=== PATIENT | female | born 1985 | race Two or more races ===

== ENCOUNTER 2020-05-10 12:33 | Outpatient (REF) | payer OTHER, SELFPAY ==
[2020-05-10 14:42] LABS: HCG Quantitative < 2 mIU/mL
== END 2020-05-10 12:34 | disposition home or self-care (01) ==
LOC: HO.HMGCLDS 12:33
PROVIDERS: PCP Nurse Practitioner Family; Visit Provider Nurse Practitioner Family
DX: N92.6 Irregular menstruation, unspecified (principal)
CPT/HCPCS: 84702

== ENCOUNTER 2020-06-28 17:43 | Outpatient (REF) | payer OTHER, SELFPAY | END 2020-06-28 17:44 | disposition home or self-care (01) | LOC: HO.LAB 17:43 | PROVIDERS: Visit Provider Internal Medicine | DX: Z20.828 Contact with and (suspected) exposure to other viral communicable diseases (principal) | CPT/HCPCS: C9803; U0003 ==

== ENCOUNTER 2020-11-10 12:19 | Outpatient (REF) | payer OTHER, SELFPAY ==
[2020-11-11 09:09] LABS: BV Int Neg Control Negative (Negative); BV Int Pos Control Positive (Positive)
== END 2020-11-10 12:20 | disposition home or self-care (01) ==
LOC: HO.LAB 12:19
PROVIDERS: Visit Provider Nurse Practitioner Family
DX: N89.8 Other specified noninflammatory disorders of vagina (principal)
CPT/HCPCS: 87480; 87510; 87660

== ENCOUNTER 2021-02-22 11:50 | Outpatient (REF) | payer OTHER, SELFPAY | END 2021-02-22 11:51 | disposition home or self-care (01) | LOC: HO.LNP 11:50 | PROVIDERS: Visit Provider Hospitalist | DX: Z20.822 Contact with and (suspected) exposure to COVID-19 (principal) | CPT/HCPCS: U0003; U0005 ==

== ENCOUNTER 2021-03-23 11:19 | Outpatient (REF) | payer OTHER, SELFPAY ==
[2021-03-23 12:11] LABS: Influenza A PCR NEGATIVE (Negative); Influenza B PCR NEGATIVE (Negative); Resp Syncy Virus RNA Qual PCR NEGATIVE (Negative); SARS COV2 PCR INHOUSE POSITIVE (Negative)
== END 2021-03-23 11:20 | disposition home or self-care (01) ==
LOC: HO.LNP 11:19
PROVIDERS: Visit Provider Internal Medicine
DX: Z20.822 Contact with and (suspected) exposure to COVID-19 (principal); R43.9 Unspecified disturbances of smell and taste
CPT/HCPCS: 0241U

== ENCOUNTER 2021-04-01 08:43 | Outpatient (REF) | payer OTHER, SELFPAY | END 2021-04-01 08:44 | disposition home or self-care (01) | LOC: HO.HMGCLDS 08:43 | PROVIDERS: PCP Nurse Practitioner Family; Visit Provider Internal Medicine | DX: Z20.822 Contact with and (suspected) exposure to COVID-19 (principal) | CPT/HCPCS: C9803; U0003; U0005 ==

== ENCOUNTER 2021-04-06 11:24 | Outpatient (REF) | payer OTHER, SELFPAY ==
[2021-04-06 14:34] LABS: IDNOW Serial# 9DD0AD1C; Strep A Nucleic Acid Negative (Negative)
== END 2021-04-06 11:25 | disposition home or self-care (01) ==
LOC: HO.LAB 11:24
PROVIDERS: Visit Provider Physician Assistant Medical
DX: J02.9 Acute pharyngitis, unspecified (principal)
CPT/HCPCS: 36415; 87651

== ENCOUNTER 2021-04-26 09:22 | Outpatient (REF) | payer OTHER, SELFPAY ==
[2021-04-26 11:38] LABS: Baso%MD 0.5 %; Eos%MD 0.6 %; Hemoglobin 13.8 g/dl (12.0-16.0); IG%MD 0.6 %; Lymph%MD 21.5 %; Mean Corpuscular HGB Conc 32.9 g/dl (31.0-35.0); Mean Corpuscular Volume 88.2 fL (80-98); Mono%MD 7.5 %; Neut%MD 69.3 %; Platelet Count 332 X10*3/uL (160-400); Red Blood Count 4.76 X10*6/uL (4.20-5.50); Red Cell Distribution Width 12.1 % (11.0-16.0); White Blood Count 8.7 X10*3/uL (4.8-10.8)
[2021-04-26 12:10] LABS: Alanine Aminotransferase 8 U/L (0-31); Alkaline Phosphatase 72 U/L (39-117); Anion Gap 10 (12-20); Aspartate Amino Transferase 11 U/L (5-31); Bilirubin Total 0.4 mg/dL (0.0-1.0); Blood Urea Nitrogen 9 mg/dL (9-16); Calcium 9.6 mg/dL (8.4-10.2); Carbon Dioxide 26 mmol/L (22-29); Chloride 106 mmol/L (96-108); Estimated Glomerular Filt Rate > 60; Glucose Random 75 mg/dL (60-115); Potassium 4.4 mmol/L (3.3-5.1); Sodium 138 mmol/L (135-145)
[2021-04-26 13:10] LABS: Band Neutrophils Percent 1 % (3-5); Basophils Abs Manual 0.1 X10*3/uL (0.0-0.3); Basophils Percent Manual 1 % (0-1); Eosinophils Absolute Manual 0.1 X10*3/UL (0.0-0.8); Eosinophils Percent Manual 1 % (0-4); Lymphocytes Absolute Manual 2.2 X10*3/uL (0.6-4.8); Lymphocytes Percent Manual 25 % (20-40); Monocytes Absolute Manual 0.3 X10*3/uL (0.0-1.2); Monocytes Percent Manual 3 % (2-11); Neutrophils Absolute Manual 6.1 X10*3/uL (2.2-7.9); Neutrophils Percent Manual 69 % (45-73)
[2021-04-26 13:11] LABS: Platelet Estimate NORMAL (NORMAL); Platelet Morphology Comment NORMAL; RBC Morphology NORMAL
[2021-04-29 21:12] LABS: EBV Source Whole Blood
== END 2021-04-26 09:23 | disposition home or self-care (01) ==
LOC: HO.HMGCLDS 09:22
PROVIDERS: PCP Nurse Practitioner Family; Visit Provider Physician Assistant Medical
DX: G89.29 Other chronic pain (principal); J02.9 Acute pharyngitis, unspecified; M25.571 Pain in right ankle and joints of right foot
CPT/HCPCS: 36415; 80053; 85007; 85027; 87071; 87798

== ENCOUNTER 2021-05-11 07:46 | Outpatient (REF) | payer OTHER, SELFPAY ==
[2021-05-11 11:17] LABS: Appearance Urine HAZY; Color Urine YELLOW; Glucose Urine UA NEG (NEG); Leukocyte Esterase Urine NEG (NEG); Nitrite Urine NEG (NEG); PH 7.5 (5.0-8.0); Specific Gravity - Urine 1.015 (1.005-1.025); Urine Blood NEG (NEG); Urine Ketones NEG (NEG); Urine Protein TRACE MG/DL (NEG-TRACE)
[2021-05-11 12:00] LABS: HIV AB/AG Nonreactive (Nonreactive); HIV Num 1 0.08 S/CO (0.00-0.99)
[2021-05-11 12:08] LABS: Alanine Aminotransferase 10 U/L (0-31); Albumin Level 4.1 g/dL (3.5-5.0); Alkaline Phosphatase 81 U/L (39-117); Anion Gap 10 (12-20); Aspartate Amino Transferase 12 U/L (5-31); Bilirubin Total 0.4 mg/dL (0.0-1.0); Blood Urea Nitrogen 9 mg/dL (9-16); Calcium 9.9 mg/dL (8.4-10.2); Carbon Dioxide 27 mmol/L (22-29); Chloride 105 mmol/L (96-108); Cholesterol 226 mg/dL; Estimated Glomerular Filt Rate > 60; Glucose Fasting 94 mg/dL (60-99); HDL Cholesterol 57 mg/dL; LDL Cholesterol Calculated 147 mg/dl; Potassium 4.2 mmol/L (3.3-5.1); Sodium 138 mmol/L (135-145); Total Protein 7.5 g/dL (6.5-8.0); Triglycerides 113 mg/dL
[2021-05-11 12:09] LABS: Syphilis Screen Nonreactive (Nonreactive); TSH reflex Free T4 1.01 uIU/mL (0.32-4.0)
[2021-05-11 13:57] LABS: CT PCR NOT DETECTED (Not Detect.); NG PCR NOT DETECTED (Not Detect.)
[2021-05-12 08:52] LABS: Herpes Simplex Type 2 IgG <0.90 index
== END 2021-05-11 07:47 | disposition home or self-care (01) ==
LOC: HO.HMGCLDS 07:46
PROVIDERS: PCP Nurse Practitioner Family; Visit Provider Nurse Practitioner Family
DX: Z00.00 Encounter for general adult medical examination without abnormal findings (principal); Z11.4 Encounter for screening for human immunodeficiency virus [HIV]; Z11.3 Encounter for screening for infections with a predominantly sexual mode of transmission
CPT/HCPCS: 80053; 80061; 81003; 84443; 86695; 86696; 86780; 87389; 87491; 87591

== ENCOUNTER 2021-05-30 09:12 | Emergency (ER) | payer OTHER, SELFPAY ==
--- NOTE | 2021-05-30 | ECG_ITS ---
Test Reason : CHEST PAIN Blood Pressure : / mmHG Vent. Rate : 061 BPM Atrial Rate : 061 BPM P-R Int : 136 ms QRS Dur : 074 ms QT Int : 382 ms P-R-T Axes : 044 036 033 degrees QTc Int : 384 ms Normal sinus rhythm Normal ECG When compared with ECG of 06-APR-2019 19:55, No significant change was found Referred By: Generic ED Physician Electronically Signed By:HUSAM DAVIS MD
[2021-05-30 09:53] VITALS: BP 116/79; PULSE 68; RESP 16; TEMP 36.7; O2SAT 99; BMI 31.2
== END 2021-05-30 11:04 | disposition left against medical advice (07) ==
LOC: HO.ED 11:03
PROVIDERS: Emergency Provider Emergency Medicine; PCP Nurse Practitioner Family
DX: R07.9 Chest pain, unspecified (principal); M25.512 Pain in left shoulder; M54.2 Cervicalgia
CPT/HCPCS: 93005; 99283

== ENCOUNTER 2021-06-08 06:36 | Outpatient (REF) | payer OTHER, SELFPAY ==
--- NOTE | ~2021-06-08 | XR_ITS ---
EXAMINATION: XR FOOT, RIGHT CLINICAL INFORMATION: Right foot pain. COMPARISON: None TECHNIQUE: AP, lateral, and oblique views of the right foot. FINDINGS: The bones and soft tissues are normal. No fracture. Alignment is anatomic. Joint spaces are maintained. XR/XR foot RT min 3V IMPRESSION: Unremarkable right foot.
--- NOTE | ~2021-06-08 | XR_ITS ---
EXAMINATION: XR ANKLE, RIGHT CLINICAL INFORMATION: Right ankle pain. COMPARISON: None TECHNIQUE: AP, lateral, and mortise views of the right ankle. FINDINGS: The bones and soft tissues are normal. No fracture. Alignment is anatomic. Joint spaces are maintained. No joint effusion. XR/XR ankle RT min 3V IMPRESSION: Unremarkable right ankle.
== END 2021-06-08 06:37 | disposition home or self-care (01) ==
LOC: HO.HOSX 06:36
PROVIDERS: Visit Provider Physician Assistant
DX: S92.351A Displaced fracture of fifth metatarsal bone, right foot, initial encounter for closed fracture (principal); M76.61 Achilles tendinitis, right leg; M76.71 Peroneal tendinitis, right leg
CPT/HCPCS: 73610; 73630; 99202

== ENCOUNTER 2022-04-01 23:32 | Emergency (ER) | payer OTHER, SELFPAY ==
[2022-04-01 23:53] VITALS: BP 142/92; PULSE 85; RESP 18; TEMP 36.6; O2SAT 100; BMI 32.2
--- NOTE | 2022-04-02 00:15 | ED_ITS ---
HPI - General Adult General Chief complaint: General Medical Stated complaint: exposure to multiple chemicals Time Seen by Provider: 04/01/22 23:44 Source: patient Mode of arrival: ambulatory Limitations: no limitations History of Present Illness HPI narrative: Patient is a 36 year old female presenting to the emergency department today after being exposed to pinsol and bleach fumes. Patient states that their family dog got sprayed by a skunk and while cleaning up after the dog was cleaned with pine cecily and bleach, she noticed she didn't feel well. Patient states that she now feels fine. Patient denies any current dizziness, lightheadedness, abdominal pain, nausea, vomiting, fever, chills, blurry vision, double vision, loss of vision, chest pain, difficulty breathing, shortness of breath, back pain, night sweats, pain with urination, increased urinary frequency, increased urinary urgency, blood in her urine or stool, syncope or a near syncopal episode, recent trauma or falls, bowel incontinence, bladder incontinence, bowel retention, bladder retention, or any other complaints at this time. Onset (ago): minute(s) Severity: mild Severity scale (1-10): 1 Relieving factors: none Exacerbating factors: none Associated symptoms: denies other symptoms Treatments prior to arrival: none Related Data Previous Rx's Medication Instructions Recorded prednisone 20 mg tablet 40 mg PO DAILY 5 days #10 tabs 03/30/22 Allergies Allergy/AdvReac Type Severity Reaction Status Date / Time No Known Allergies Allergy Unknown Verified 03/30/22 14:32 [No Known Allergies*] N.K.D.A. Allergy Unknown unknown Uncoded 03/30/22 14:32 Review of Systems Constitutional: Constitutional: Reports no additional constitutional complaints, Denies chills, Denies fever(s) and Denies night sweats Eyes: Eyes: Reports no additional eye complaints, Denies blurry vision, Denies change in vision, Denies diplopia, Denies eye discharge, Denies loss of vision and Denies eye pain ENT: Denies dizziness Cardiovascular: Cardiovascular: Reports no additional cardiovascular complaints, Denies chest pain, Denies lightheadedness, Denies Loss of Consciousness and Denies dyspnea Respiratory: Respiratory: Reports no additional respiratory complaints and Denies dyspnea Gastrointestinal: Gastrointestinal: Reports no additional gastrointestinal complaints, Denies abdominal pain, Denies melena, Denies hematochezia, Denies change in bowel habits and Denies change in stool character Genitourinary: Genitourinary: Denies hematuria, Denies urinary frequency, Denies dysuria, Denies urinary incontinence, Denies urinary hesitancy and Denies urinary urgency Musculoskeletal: Musculoskeletal: Reports no additional musculoskeletal complaints, Denies numbness and Denies tingling Neurologic: Denies dizziness, Denies loss of vision, Denies numbness and Denies tingling Psychiatric: Psychiatric: Reports no additional psychiatric complaints Endocrine: Endocrine: Reports no additional endocrine complaints Hematologic/Lymphatic: Hematologic/Lymphatic: Reports no additional hematologic/lymphatic complaints Allergic/Immunologic: Allergic/Immunologic: Reports no additional allergic/immunologic complaints PMFSH Past Medical History Attestation statement: The following information was validated with the patient. Source: old records reviewed Family History Family History Mother Mental health disorder Father Substance use disorder Mental health disorder Sister Substance use disorder Mental health disorder Maternal Aunt Mental health disorder Social History Social History Housing: Condominium Patient Tobacco Use Status: Current everyday Tobacco user Cigarettes Per Day: 3 e-Cigarette/Vaping Use: Never Used Advance Directives: No Current occupational status: unemployed Physical Exam ED Vital Signs: Vital Signs - 24 hr 04/01/22 23:53 Temperature 97.8 F Pulse Rate 85 Respiratory Rate 18 Blood Pressure 142/92 H Pulse Oximetry 100 Oxygen Delivery Method Room Air BMI result Body Mass Index 32.2 Const General: cooperative, no acute distress, alert and awake Nutritional Appearance: well nourished Orientation/consciousness: patient oriented x3 Limitations: no limitations [facility] Head: Yes normal to inspection and Yes atraumatic Ears: hearing grossly normal bilaterally and external ears normal General nose exam: Normal external nose present, no nasal discharge noted and no epistaxis Face and sinus: Yes normal facial exam, No abrasion and No laceration Mouth: Normal oral and palatal mucosa present, no drooling and no muffled voice Eyes General: appearance normal, both eyes and all related structures Periorbital: periorbital findings normal Eyelids: Yes eyelids normal Conjunctivae: conjunctivae normal Pupils: Equal, round and reactive pupils present EOM: EOMs intact bilaterally Neck Neck: Yes normal visual inspection, Yes full ROM and Yes no lymphadenopathy Chest Chest palpation & inspection: normal inspection of the chest Resp Effort & Inspection: normal respiratory effort and able to speak in complete sentences Auscultation: clear to auscultation bilaterally Cardio Rate: regular rate Rhythm: regular rhythm GI Inspection: Yes normal to inspection Neuro General: patient oriented x3 and moves all extremities Cranial nerves: Yes Equal, round and reactive pupils present Cognition (Neuro): normal cognition Motor exam (neuro): 5/5 motor strength present throughout Sensory Exam: Normal double simultaneous stimulation for sensation Coordination: [id number] test normal Extrem General: Yes normal to inspection, Yes full ROM and Yes capillary refill normal Psych Appearance: grossly normal Mental Status: mental status grossly normal Affect: normal affect Attitude: cooperative Thought process: Normal thought process present Thought content: Normal thought content present Insight: Good insight present (Psych) Medical Decision Making MDM Narrative Medical decision making narrative: Patient is a 36 year old female presenting to the emergency department today after being exposed to pine cecily and bleach. Patient's physical exam was unremarkable. I explained my physical exam findings to the patient. I answered all questions asked by the patient. I stressed the importance of the patient taking her medication as prescribed. I stressed the importance of the patient following up with her primary care provider. I stressed the importance of the patient returning to the emergency department immediately if her symptoms were to worsen or if she were to develop any dizziness, shortness of breath, di fficulty breathing, chest pain, blurry vision, loss of vision, nausea, vomiting, abdominal pain, fever, chills, back pain, or any other complaints. Patient verbalized agreement and understanding with this treatment plan and discharge. Medical Records Medical records reviewed: Yes I reviewed the patient's medical records. Discharge Plan Discharge Clinical Impression: Exposure to chemical inhalation Patient Disposition: Home, Self-Care Instructions: Contact Precautions (ED) Additional Instructions: Follow up with your primary care provider. Return to the emergency department immediately if your symptoms worsen or if you develop any dizziness, shortness of breath, difficulty breathing, chest pain, blurry vision, loss of vision, nausea, vomiting, abdominal pain, fever, chills, back pain, or any other complaints. Prescriptions: No Action prednisone 20 mg tablet 40 mg PO DAILY 5 Days Qty: 10 0RF Referrals: [facility] [place] [facility] [Provider Group] (Call to establish and follow up with a primary care provider. If you already have a primary care provider, please follow up with them. ) [facility] [Provider Group] (Call to establish and follow up with a primary care provider. If you already have a primary care provider, please follow up with them. ) [facility] [Provider Group] (Call to establish and follow up with a primary care provider. If you already have a primary care provider, please follow up with them. ) Stand Alone Forms: Work/School Release Print Language: Japanese
--- OUTSIDE RECORDS SUMMARY | 2022-04-02 00:25 | XMS_ITS | Continuity of Care Document ---
:1985 Author Organization [facility] ic Address [address] [place] [id number]- Care Team Providers Name Role Phone Marco SALDIVAR, Orlando Dangelo Primary Care Physician Encounter [facility] [place] Date(s): 11/22/20 - 12/22/[address] [address]- Allergies, Adverse Reactions, Alerts Substance Reaction Severity Status NKA Active Medications Augmentin 875 mg-125 mg oral tablet 1 tablet, By Mouth, Every 12 hours, for 5 days, # 10 tablet, 0 Refills, Acute 12/25/20 8:33:00 EDT, 12/20/20 8:33:00 EDT, Tablet, [id number], Partial fill upon patient request if the prescription is for a schedule II opioid drug., 178, cm, .. Start Date: 12/20/20 Stop Date: 12/25/20 Status: Ordereddoxylamine 25 mg oral tablet 1 tablet = 25 mg, By Mouth, Daily at bedtime, Take one tablet before bed. May take additional tabletin the morning if nausea still persistent, # 60 tablet, 3 Refills, Maintenance, 12/17/20 16:55:00 EDT, [id number], Partial fill upon patient r... Start Date: 12/17/20 Status: OrderedFlexeril 10 mg oral tablet 10 mg, By Mouth, 3 times a day, Refills 0, Maintenance, 12/17/20 16:29:00 EDT, Partial fill upon patient request if the prescription is for a schedule II opioid drug. Start Date: 12/17/20 Status: OrderedPrenatal Plus Iron oral tablet 1 tablet, By Mouth, Daily, # 90 tablet, 3 Refills, Maintenance, 11/22/20 16:41:00 EDT, Tablet, [facility] #[id number], Partial fill upon patient request if the prescription is for a schedule II opioid drug., 1 tablet By Mouth Daily, 178, cm, 10/25/20 13:3... Start Date: 11/22/20 Status: Orderedpyridoxine 25 mg oral tablet 1 tablet = 25 mg, By Mouth, 3 times a day, PRN Nausea & Vomiting, # 60 tablet, 3 Refills, Maintenance, 12/17/20 16:55:00 EDT, [facility]/pharm[facility] #[id number], Partial fill upon patient request if the prescription is for a schedule II opioid drug., 178, cm, ... 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) Fibromyalgia(Confirmed)4 Active H/O x3(Confirmed)5 Active Normal screen 10/28/19 Active Hemoglobinopathy(Confirmed) H/O Abnormal cervical Pap 2019 Active smear(Confirmed)6 H/O hemorrhoids(Confirmed) Active H/O HPV infection(Confirmed) 2019 Active H/O Anxiety and depression(Confirmed)7 Active Nausea/vomiting in Active (Confirmed) (Confirmed) Active 1Managed by PCP - not currently on [id number] treated about 2 years ago; follows up with primary care [id number] reports she has not been vaccinated against Covid-19 and does not plan to at the OBI visit.4Managed by PCP - not currently on meds.5Pt signed medical release 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 Pt informed of [facility] services and declined at time of OBI visit. Social History Social History Type Response Tobacco Use: 4 or less cigarettes(le ss than 1/4 pack)/day in last 30 days. Sex Female
--- OUTSIDE RECORDS SUMMARY | 2022-04-02 00:25 | XMS_ITS | Continuity of Care Document ---
:1985 Author Organization [facility] ic Address [address] [place] [id number]- Care Team Providers Name Role Phone Marco SALDIVAR, Orlando Dangleo Primary Care Physician Encounter [facility] [place] Date(s): 12/06/20 - 01/05/[address] [address]- Allergies, Adverse Reactions, Alerts Substance Reaction Severity Status NKA Active Medications doxylamine 25 mg oral tablet 1 tablet = 25 mg, By Mouth, Daily at bedtime, Take one tablet before bed. May take additional tabletin the morning if nausea still persistent, # 60 tablet, 3 Refills, Maintenance, 12/17/20 16:55:00 EDT, [id number], Partial fill upon patient r... Start [...] 3 Refills, Maintenance, 11/22/20 16:41:00 EDT, Tablet, [id number], Partial fill upon patient request if the prescription is for a schedule II opioid drug., 1 tablet By Mouth Daily, 178, cm, 10/25/20 13:3... Start Date: 11/22/20 Status: Orderedpyridoxine 25 mg oral tablet 1 tablet = 25 mg, By Mouth, 3 times a day, PRN Nausea & Vomiting, # 60 tablet, 3 Refills, Maintenance, 12/17/20 16:55:00 EDT, [facility] #[id number], Partial fill upon patient request if the [...] 10/28/19 Active Hemoglobinopathy(Confirmed) H/O Abnormal cervical Pap 2020 Active smear(Confirmed)6 H/O hemorrhoids(Confirmed) Active H/O HPV infection(Confirmed) 2019 Active H/O Anxiety and depression(Confirmed)7 Active Nausea/vomiting in Active (Confirmed) (Confirmed) Active 1Managed by PCP - not currently on [id number] treated about 2 years ago; follows up with primary care [id number] reports she has not been vaccinated against Covid-19 and does not plan to at the OBI visit.4Managed by PCP - not currently on meds.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 Pt informed of [facility] services and declined at time of OBI visit. Social History Social History Type Response Tobacco Use: 4 or less cigarettes(le ss than 1/4 pack)/day in last 30 days. Sex Female
--- OUTSIDE RECORDS SUMMARY | 2022-04-02 00:25 | XMS_ITS | Continuity of Care Document ---
:1985 Author Organization [facility] ic Address [address] [place] [address]- Care Team Providers Name Role Phone Marco SALDIVAR, Orlando Dangelo Primary Care Physician [place] [facility] [place] Date(s): 12/10/20 - 01/09/[address] [address] Allergies, Adverse Reactions, Alerts Substance Reaction Severity [...] tablet, 3 Refills, Maintenance, 12/17/20 16:55:00 EDT, [facility]/pharmacy #[id number], Partial fill upon patient request if the [...] 1Managed by PCP - not currently on [id number] treated about 2 years ago; follows up with primary care [id number] reports she has not been vaccinated against Covid-19 and does not plan to at the OBI visit.4Managed by PCP - not currently on meds.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 Pt informed of [facility] services and declined at time of OBI visit. Social History Social History Type Response Tobacco Use: 4 or less cigarettes(le ss than 1/4 pack)/day in last 30 days. Sex Female
--- OUTSIDE RECORDS SUMMARY | 2022-04-02 00:25 | XMS_ITS | Continuity of Care Document ---
:1985 Author Organization [facility] ic Address [address] [place] [id number]- Care Team Providers Name Role Phone Marco SALDIVAR, Orlando Dangelo Primary Care Physician Encounter [facility] [place] Date(s): 01/21/20 - 02/21/20 [facility] [address] [address]- [facility] Attending Physician: Not on Staff, Attending MD Allergies, Adverse Reactions, Alerts Substance Reaction Severity Status NKA Active Medications doxylamine 25 mg oral tablet 1 tablet = 25 mg, By Mouth, Daily at bedtime, # 32 tablet, 0 Refills, Maintenance, 10/23/19 17:45:00EDT, Tablet, [id number], 178, cm, 07/30/18 4:27:00 EST, Height Start Date: 10/23/19 Status: Orderedmetronidazole topical 0.75% gel with applicator 1 application, Vaginally, Once, # 70 Gm, 0 Refills, Soft Stop, 12/04/19 13:20:00 EDT, Gel, [id number], 1 application Vaginally Once, 178, cm, 11/25/19 14:10:00 EDT, Height, 70.5, kg, 10/27/19 23:53:00 EDT, Dry Weight Start Date: 12/04/19 Status: OrderedPrenatal Multivitamins with Folic Acid 1 mg oral tablet 1 tablet, By Mouth, Daily, # 90 tablet, 2 Refills, Maintenance, 10/13/19 13:57:00 EDT, Tablet, [id number], 1 tablet By Mouth Daily, 178, cm, 07/30/18 4:27:00 EST, Height Start Date: 10/13/19 Status: Orderedpromethazine 12.5 mg oral tablet 1 tablet = 12.5 mg, By Mouth, Every 4 hours, PRN for nausea/vomiting, # 60 tablet, 0 Refills, Maintenance, 10/30/19 11:59:00 EDT, Tablet, [facility]/pharmacy #[id number], 178, cm, 10/27/19 13:06:00 EDT, Height, 70.5, kg, 10/27/19 23:53:00 EDT, Dry Weight Start Date: 10/30/19 Status: OrderedVitamin B6 50 mg oral tablet See Instructions, TAKE 1 TABLET BY MOUTH EVERY DAY, # 30 tablet, Refills 0, Acute, Instructions Replace Required Details, Route to Pharmacy Electronically, [id number], 178, cm, 10/27/19 13:06:00 EDT, Height, 70.5, kg, 10/27/19 23:53:00 EDT, Dry W... Start Date: 11/13/19 Status: OrderedZofran 4 mg oral tablet 1 tablet = 4 mg, By Mouth, Every 8 hours, PRN as needed for nausea/vomiting, # 15 tablet, 1 Refills,Maintenance, 11/25/19 14:31:00 EDT, Tablet, [facility]/pharmacy #[id number], 178, cm, 11/25/19 14:10:00 EDT, Height, 70.5, kg, 10/27/19 23:53:00 EDT, Dry Weight Start Date: 11/25/19 Stop Date: 12/05/19 Status: Ordered Problem List Condition Effective Dates Status Health Status Informant Arthritis(Confirmed) Active Chronic bipolar disorder(Confirmed)1 Active Fibromyalgia(Confirmed) Active History of (Confirmed) Active History of abnormal cervical Pap Active smear(Confirmed) (Confirmed) Active 1last treated about 2 years ago; follows up with primary care currently Social History Social History Type Response Smoking Status Former smoker, quit more [place] n 30 days ago entered on: 10/27/19 Sex Female
--- OUTSIDE RECORDS SUMMARY | 2022-04-02 00:25 | XMS_ITS | Continuity of Care Document ---
:1985 Author Organization [facility] ic Address [address] [place] [phone]- Care Team Providers Name Role Phone Marco SALDIVAR, Orlando Dangelo Primary Care Physician Encounter [facility] Date(s): 08/29/21 - 11/23/[address] [address] Attending Physician: Not on Staff, Attending MD Allergies, Adverse Reactions, Alerts No Known Allergies Medications cyclobenzaprine 10 mg oral tablet 10 mg, 1, tablet, By Mouth, 3 times a day, # 20 tablet, Refills 0, Tot. Refills 0, Maintenance, 11/21/21 19:57:00 EDT, Route to Pharmacy Electronically, [facility]/pharmacy #[id number], Partial fill upon patient request if the prescription is for a schedule II opi... Start Date: 11/21/21 Status: Ordereddoxylamine 25 mg oral tablet 1 tablet = 25 mg, By Mouth, Daily at bedtime, t, # 60 tablet, 3 Refills, Maintenance, 10/17/21 13:50:00 EDT, [id number], Partial fill upon patient request if the prescription is for a schedule II opioid drug., 153, cm, 10/17/21 13:09:00 EDT, H... Start Date: 10/17/21 Status: Orderedfamotidine 10 mg oral tablet 1 tablet = 10 mg, By Mouth, Daily in AM, # 56 tablet, 0 Refills, Maintenance, 08/23/21 19:01:00 EST,Tablet, [id number], Partial fill upon patient request if the prescription is for a schedule II opioid drug., 153, cm, 08/11/21 15:01:00 EST, H... Start Date: 08/23/21 Status: Orderedomeprazole 20 mg oral enteric coated capsule 1 capsule, By Mouth, Daily at bedtime, # 30 capsule, 0 Refills, [id number], 153, cm, 08/29/21 14:11:00 EST, Height, 75.3, kg, 12/22/20 23:35:00 EDT, Dry Weight Start Date: 09/20/21 Status: Orderedondansetron 4 mg oral tablet, disintegrating 1 tablet = 4 mg, By Mouth, Every 8 hours, PRN as needed for nausea/vomiting, # 10 tablet, 0 Refills,Maintenance, 11/17/21 0:13:00 EDT, DIS Tablet, [facility]/pharmacy #[id number], Partial fill upon patient requestif the prescription is for a schedule II opioid d... Start Date: 11/17/21 Status: OrderedPrenatal Multivitamins with Folic Acid 1 mg oral tablet 1 tablet, By Mouth, Daily, # 90 tablet, 3 Refills, Maintenance, 08/10/21 9:21:00 EST, Tablet, [facility]/pharmacy #[id number], Partial fill upon patient request if the prescription is for a schedule II opioid drug., 1 tablet By Mouth Daily, 178, cm, 07/20/21 19:29... Start Date: 08/10/21 Status: OrderedPrenatal Plus Iron oral tablet 1 tablet, By Mouth, Daily, # 90 tablet, 3 Refills, Maintenance, 11/22/20 16:41:00 EDT, Tablet, [facility]/pharmacy #[id number], Partial fill upon patient request if the prescription is for a schedule II opioid drug., 1 tablet By Mouth Daily, 178, cm, 10/25/20 13:3... Start Date: 11/22/20 Status: Orderedpyridoxine 25 mg oral tablet 1 tablet = 25 mg, By Mouth, 3 times a day, PRN Nausea & Vomiting, # 60 tablet, 3 Refills, Maintenance, 12/17/20 16:55:00 EDT, [facility]/pharmacy #[id number], Partial fill upon patient request if the prescription is for a schedule II opioid drug., 178, cm, ... Start Date: 12/17/20 Status: OrderedTums 500 mg oral tablet, chewable 500 mg, 1, tablet, Chew, 2 times a day, # 100 tablet, Refills 0, Tot. Refills 0, Maintenance, 08/23/21 19:02:00 EST, Route to Pharmacy Electronically, [facility]/pharmacy #[id number], Partial fill upon patient request if the prescription is for a schedule II opioi... Start Date: 08/23/21 Status: Ordered Problem List Condition Effective Dates Status Health Status Informant H/O Arthritis(Confirmed) Active Chronic bipolar disorder(Confirmed)1, Active 2, 3 H/O Cataract(Confirmed) Active H/O Constipation(Confirmed) Active Not Vaccinated/COVID-19(Confirmed)4 Active Thyroid condition(Confirmed)5 Active Elevated blood pressure Active reading(Confirmed)6 Ptyalism(Confirmed) Active Abnormal ultrasound(Confirmed) Active Fibromyalgia(Confirmed)7, 8 Active H/O x3(Confirmed)9 Active H/O Abnormal cervical Pap 2020 Active smear(Confirmed)10 H/O hemorrhoids(Confirmed) Active H/O HPV infection(Confirmed) 2019 Active H/O Anxiety and Active depression(Confirmed)11 Nausea/vomiting in Active (Confirmed) Obese class I(Confirmed) Active Obesity during (Confirmed) Active Social problem(Confirmed) Active 1Not currently taking medication, stopped taking prior to . Feels stable. Declines [id number] by PCP - not currently on yhob7zipt treated about 2 years ago; follows up with primary care [id number] reports she has not been vaccinated against Covid-19 and does not plan to at the OBI visit.5Patient reports she is being monitored by PCP, states her level was high and she was being monitoredbut has not been prescribed and is not taking any medications.6 Patient states being monitored for blood pressure with PCP but does not have diagnosis of HTN. 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 Pt informed of [facility] services and declined at time of OBI visit. Social History Social History Type Response Smoking Status Former smoker, quit more [place] n 30 days ago; Other: stopped with ; entered on: 08/10/21 Sex Female
--- OUTSIDE RECORDS SUMMARY | 2022-04-02 00:25 | XMS_ITS | Continuity of Care Document ---
:1985 Author Organization [facility] Address [address] [place] [address]- Care Team Providers Name Role Phone Marco SALDIVAR, Orlando Dangelo Primary Care Physician Encounter [facility] Date(s): 12/11/19 - 01/10/20 [facility] [address] [place] [address] Attending Physician: Deirdre, Lilian Admitting Physician: AdmtrLilian Referring Physician: Admtr, Ar8 Allergies, Adverse Reactions, Alerts Substance Reaction Severity Status NKA Active Medications doxylamine 25 mg oral tablet 1 tablet = 25 mg, By Mouth, Daily at bedtime, # 32 tablet, 0 Refills, Maintenance, 10/23/19 17:45:00EDT, Tablet, [id number], 178, cm, 07/30/18 4:27:00 EST, Height Start [...] Refills, Maintenance, 10/13/19 13:57:00 EDT, Tablet, [facility], 1 tablet By Mouth Daily, 178, cm, 07/30/18 4:27:00 EST, Height Start Date: 10/13/19 Status: Orderedpromethazine 12.5 mg oral tablet 1 tablet = 12.5 mg, By Mouth, Every 4 hours, PRN for nausea/vomiting, # 60 tablet, 0 Refills, Maintenance, 10/30/19 11:59:00 EDT, Tablet, [facility]/pharmacy #[id number], 178, cm, 10/27/19 13:06:00 EDT, Height, 70.5, kg, 10/27/19 23:53:00 EDT, Dry Weight Start Date: 10/30/19 Status: OrderedVitamin B6 50 mg oral tablet See Instructions, TAKE 1 TABLET BY MOUTH EVERY DAY, # 30 tablet, Refills 0, Acute, Instructions Replace Required Details, Route to Pharmacy Electronically, [id number], 178, cm, 10/27/19 13:06:00 EDT, Height, 70.5, kg, 10/27/19 23:53:00 EDT, Dry W... Start Date: 11/13/19 Status: OrderedZofran 4 mg oral tablet 1 tablet = 4 mg, By Mouth, Every 8 hours, PRN as needed for nausea/vomiting, # 15 tablet, 1 Refills,Maintenance, 11/25/19 14:31:00 EDT, Tablet, [facility]/pharmacy #[id number], 178, cm, 11/25/19 14:10:00 EDT, Height, 70.5, kg, 10/27/19 23:53:00 EDT, Dry Weight Start Date: 11/25/19 Stop Date: 12/05/19 Status: Ordered Problem List Condition Effective Dates Status Health Status Informant Arthritis(Confirmed) Active Chronic bipolar disorder(Confirmed)1 Active Fibromyalgia(Confirmed) Active History of (Confirmed) Active History of ectopic Active (Confirmed) History of abnormal cervical Pap Active smear(Confirmed) Hyperemesis gravidarum(Confirmed)2 10/28/19 Active (Confirmed) Active 1last treated about 2 years ago; follows up with primary care [id number] added by Discern Expert Social History Social History Type Response Smoking Status Former smoker, quit more jersey n 30 days ago entered on: 10/27/19 Sex Female
--- OUTSIDE RECORDS SUMMARY | 2022-04-02 00:25 | XMS_ITS | Continuity of Care Document ---
:1985 Author Organization [facility] ic Address [address] [place] [address]- Care Team Providers Name Role Phone Marco SALDIVAR, Orlando Dangelo Primary Care Physician [place] [facility] [place] 11/25/19 - 02/19/20 [facility] [address] [address]- [facility] Attending Physician: Not on Staff, Attending [...] 0 Refills, Maintenance, 10/30/19 11:59:00 EDT, Tablet, [facility]/pharmacy #[id number], 178, cm, 10/27/19 13:06:00 EDT, Height, 70.5, kg, 10/27/19 23:53:00 EDT, Dry Weight Start Date: 10/30/19 Status: OrderedVitamin B6 50 mg oral tablet See Instructions, TAKE 1 TABLET BY MOUTH EVERY DAY, # 30 tablet, Refills 0, Acute, Instructions Replace Required Details, Route to Pharmacy Electronically, [id number], 178, cm, 10/27/19 13:06:00 EDT, Height, 70.5, kg, 10/27/19 23:53:00 EDT, Dry W... Start Date: 11/13/19 Status: OrderedZofran 4 mg oral tablet 1 tablet = 4 mg, By Mouth, Every 8 hours, PRN as needed for nausea/vomiting, # 15 tablet, 1 Refills,Maintenance, 11/25/19 14:31:00 EDT, Tablet, [facility]/pharmacy #[id number], 178, cm, 11/25/19 14:10:00 EDT, Height, [...]
--- OUTSIDE RECORDS SUMMARY | 2022-04-02 00:25 | XMS_ITS | Continuity of Care Document ---
:1985 Author Organization [facility] Address [address] [place] [address]- Care Team Providers Name Role Phone Marco SALDIVAR, Orlando Dangelo Primary Care Physician Encounter [facility] Date(s): 01/06/22 - 03/22/[address] [address]- Attending Physician: Not on Staff, Attending MD Allergies, Adverse Reactions, Alerts No Known Allergies Immunizations Given and Recorded Vaccine Date Status Refusal Reason tetanus/diphtheria/pertussis, acel(Tdap) 12/19/21 Given Medications acetaminophen 325 mg oral tablet 650 mg, By Mouth, Every 4 hours, (1-3), may give 325mg per patient preference and re-dose with 325mgwithin 4 hours, if needed. Patient should only receive a total of 650mg of Acetaminophen every 4 hours., # 50 tablet, Refills 0, Tot. Refills 0, Bárbara... Start Date: 02/21/22 Status: Orderedbisacodyl 10 mg rectal suppository 1 supp = 10 mg, Rectally, Daily, PRN Constipation, # 5 supp, 0 Refills, Maintenance, 02/21/22 6:48:00 EDT, [facility], [id number], Partial fill upon patient request if the prescription is for a schedule II opioid drug., 153, cm, 02/21/22 0:10... Start Date: 02/21/22 Status: OrderedCeleXA 10 mg oral tablet 10 mg, 1, tablet, By Mouth, Daily, # 30 tablet, Refills 2, Tot. Refills 2, Maintenance, 02/21/22 6:49:00 EDT, Route to Pharmacy Electronically, [facility]/pharmacy #[id number], Partial fill upon patient request if the prescription is for a schedule II opioid drug.... Start Date: 02/21/22 Status: Ordereddocusate sodium 100 mg oral capsule 100 mg, 1, capsule, By Mouth, 2 times a day, # 60 capsule, Refills 0, Tot. Refills 0, Maintenance, 02/21/22 6:48:00 EDT, [id number], Partial fill upon patient request if the prescription is for a schedule II o... Start Date: 02/21/22 Status: Orderedibuprofen 800 mg oral tablet 800 mg, 1, tablet, By Mouth, Every 8 hours, (4-6), may give 400mg per patient preference and re-dosewith 400mg within 8 hours, if needed. Patient should only receive a total of 800mg of Ibuprofen every 8 hours., # 50 tablet, Refills 0, Tot. Refills... Start Date: 02/21/22 Status: Orderedondansetron 4 mg oral tablet, disintegrating 1 tablet = 4 mg, By Mouth, Every 8 hours, PRN as needed for nausea/vomiting, # 10 tablet, 0 Refills,Maintenance, 11/17/21 0:13:00 EDT, DIS Tablet, [facility]/pharmacy #[id number], Partial fill upon patient requestif the prescription is for a schedule II opioid d... Start Date: 11/17/21 Status: OrderedPrenatal Multivitamins with Folic Acid 1 mg oral tablet 1 tablet, By Mouth, Daily, # 90 tablet, 3 Refills, Maintenance, 08/10/21 9:21:00 EST, Tablet, [facility]/pharmacy #[id number], Partial fill upon patient request if the prescription is for a schedule II opioid drug., 1 tablet By Mouth Daily, 178, cm, 07/20/21 19:29... Start Date: 08/10/21 Status: OrderedPrenatal Plus Iron oral tablet 1 tablet, By Mouth, Daily, # 90 tablet, 3 Refills, Maintenance, 11/22/20 16:41:00 EDT, Tablet, [facility]/pharmacy #[id number], Partial fill upon patient request if the prescription is for a schedule II opioid drug., 1 tablet By Mouth Daily, 178, cm, 10/25/20 13:3... Start Date: 11/22/20 Status: Orderedsimethicone 80 mg oral tablet, chewable 80 mg, Chew, 3 times a day, PRN, # 90 tablet, Refills 0, Tot. Refills 0, Maintenance, Gas, 02/21/22 6:48:00 EDT, Route to Pharmacy Electronically, [facility]/pharmacy #[id number], Partial fill upon patient request if the prescription is for a schedule II opioid Start Date: 02/21/22 Status: Ordered Problem List Condition Effective Dates Status Health Status Informant H/O Arthritis(Confirmed) Active Chronic bipolar disorder(Confirmed)1, Active 2, 3 H/O Cataract(Confirmed) Active Not Vaccinated/COVID-19(Confirmed)4 Active Thyroid condition(Confirmed)5 Active Ptyalism(Confirmed) Active Fibromyalgia(Confirmed)6, 7 Active H/O Abnormal cervical Pap 2020 Active smear(Confirmed)8 H/O hemorrhoids(Confirmed) Active H/O Anxiety and depression(Confirmed)9 Active Social problem(Confirmed) Active 1Not currently taking medication, stopped taking prior to . Feels stable. Declines [id number] by PCP - not currently on dtuv5lbph treated about 2 years ago; follows up with primary care [id number] reports she has not been vaccinated against Covid-19 and does not plan to at the OBI visit.5Patient reports she is being monitored by PCP, states her level was high and she was being monitoredbut has not been prescribed and is not taking any medications.6 Managed by PCP, patient states takes Flexeril as [id number] by PCP - not currently on meds.8ASCUS/HPV [id number] by PCP - not currently on meds. Pt informed of [facility] services and declined at time of OBI visit. Social History Social History Type Response Smoking Status Former smoker, quit more [place] n 30 days ago; Other: stopped with ; entered on: 08/10/21 Sex Female Care Team PersonnelName: Orlando Lara NP Address: [address] [place] [address]-
--- OUTSIDE RECORDS SUMMARY | 2022-04-02 00:25 | XMS_ITS | Continuity of Care Document ---
:1985 Author Organization [facility] ic Address [address] [place] [address]- Care Team Providers Name Role Phone Orlando Lara NP Primary Care Physician Encounter [facility] Date(s): 01/23/20 - 02/29/20 [facility] [address] [address]- [facility] Attending Physician: Not on Staff, Attending MD Referring Physician: Orlando Lara NP Allergies, Adverse Reactions, Alerts Substance Reaction Severity Status NKA Active Medications doxylamine 25 mg oral tablet 1 tablet = 25 mg, By Mouth, Daily at bedtime, # 32 tablet, 0 Refills, Maintenance, 10/23/19 17:45:00EDT, Tablet, [facility], 178, cm, 07/30/18 4:27:00 EST, Height Start [...] 0 Refills, Maintenance, 10/30/19 11:59:00 EDT, Tablet, [facility]/pharmacy #[id number], 178, cm, 10/27/19 13:06:00 EDT, Height, 70.5, kg, 10/27/19 23:53:00 EDT, Dry Weight Start Date: 10/30/19 Status: OrderedVitamin B6 50 mg oral tablet See Instructions, TAKE 1 TABLET BY MOUTH EVERY DAY, # 30 tablet, Refills 0, Acute, Instructions Replace Required Details, Route to Pharmacy Electronically, [id number], 178, cm, 10/27/19 13:06:00 EDT, Height, 70.5, kg, 10/27/19 23:53:00 EDT, Dry W... Start Date: 11/13/19 Status: OrderedZofran 4 mg oral tablet 1 tablet = 4 mg, By Mouth, Every 8 hours, PRN as needed for nausea/vomiting, # 15 tablet, 1 Refills,Maintenance, 11/25/19 14:31:00 EDT, Tablet, [facility]/pharmacy #[id number], 178, cm, 11/25/19 14:10:00 EDT, [...]
--- OUTSIDE RECORDS SUMMARY | 2022-04-02 00:25 | XMS_ITS | Continuity of Care Document ---
:1985 Author Organization [facility] Address [address] [place] [address], [address] [place] [address]- Care Team Providers Name Role Phone Marco SALDIVAR, Orlando Dangelo Primary Care Physician Encounter [facility] Date(s): 11/15/20 - 12/15/20 [facility] [address] [facility], [address] [place] [address] Attending Physician: Lilian Gilmore Admitting Physician: Lilian Gilmore Referring Physician: AdmtrLilian Allergies, Adverse Reactions, Alerts Substance Reaction Severity Status NKA Active Medications Plus Iron oral tablet 1 tablet, By Mouth, Daily, # 90 tablet, 3 Refills, Maintenance, 11/22/20 16:41:00 EDT, Tablet, [id number], Partial fill upon patient request if the prescription is for a schedule II opioid drug., 1 tablet By Mouth Daily, 178, cm, 10/25/20 13:3... Start Date: 11/22/20 Status: Ordered Problem List Condition Effective Dates Status Health Status Informant H/O Arthritis(Confirmed) Active H/O Positive GBS test(Confirmed)1 02/03/05 Active Chronic bipolar disorder(Confirmed)2, Active 3 H/O Cataract(Confirmed) Active H/O Chlamydia(Confirmed) Active H/O Constipation(Confirmed) Active Not Vaccinated/COVID-19(Confirmed)4 Active Negative screen Cystic 10/28/19 Active fibrosis(Confirmed) Fibromyalgia(Confirmed)5 Active H/O bronchitis(Confirmed) Active H/O x3(Confirmed)6 Active H/O: pneumonia(Confirmed) Active Normal screen 10/28/19 Active Hemoglobinopathy(Confirmed) H/O Abnormal cervical Pap 2020 Active smear(Confirmed)7 H/O hemorrhoids(Confirmed) Active H/O HPV infection(Confirmed) 2020 Active H/O Anxiety and depression(Confirmed)8 Active (Confirmed) Active 1Vag/REC culture [id number] by PCP - not currently on bfhb8ifkj treated about 2 years ago; follows up with primary care adispejjz1Eu reports she has not been vaccinated against Covid-19 and does not plan to at the OBI visit.5Managed by PCP - not currently on meds.6Pt signed medical release 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 Pt informed of [facility] services and declined at time of OBI visit. Social History Social History Type Response Tobacco Use: 4 or less cigarettes(le ss than 1/4 pack)/day in last 30 days. Sex Female
--- OUTSIDE RECORDS SUMMARY | 2022-04-02 00:25 | XMS_ITS | Continuity of Care Document ---
:1985 Author Organization [facility] Address [address] [place] [address]- Care Team Providers Name Role Phone Marco SALDIVAR, Orlando Dangelo Primary Care Physician Encounter [facility] Date(s): 02/23/22 - 03/25/[address] [address]- Attending Physician: Not on Staff, Attending MD [...] Refills, Maintenance, 02/21/22 6:48:00 EDT, [facility], [id number], Partial fill upon patient request if the prescription is for a schedule II opioid drug., 153, cm, 02/21/22 0:10... Start Date: 02/21/22 Status: OrderedCeleXA 10 mg oral tablet 10 mg, 1, tablet, By Mouth, Daily, # 30 tablet, Refills 2, Tot. Refills 2, Maintenance, 02/21/22 6:49:00 EDT, Route to Pharmacy Electronically, [facility]/pharmacy #[id number], Partial fill upon patient request if the prescription is for a schedule II opioid drug.... Start Date: 02/21/22 Status: Ordereddocusate sodium 100 mg oral capsule 100 mg, 1, capsule, By Mouth, 2 times a day, # 60 capsule, Refills 0, Tot. Refills 0, Maintenance, 02/21/22 6:48:00 EDT, [id number] fill upon patient request if [...] 0 Refills,Maintenance, 11/17/21 0:13:00 EDT, DIS Tablet, [facility]/pharmacy #[id number], Partial fill upon patient requestif the prescription is for a schedule II opioid d... Start Date: 11/17/21 Status: OrderedPrenatal Multivitamins with Folic Acid 1 mg oral tablet 1 tablet, By Mouth, Daily, # 90 tablet, 3 Refills, Maintenance, 08/10/21 9:21:00 EST, Tablet, [facility]/pharmacy #[id number], Partial fill upon [...] 02/21/22 6:48:00 EDT, Route to Pharmacy Electronically, [facility]/pharmacy #[id number], Partial fill upon patient request if the [...] taking prior to . Feels stable. Declines [id number] by PCP - not currently on rbwi5xbao treated about 2 years ago; follows up with primary care [id number] reports she has not been vaccinated against Covid-19 and does not plan to at the OBI visit.5Patient reports she is being monitored by PCP, states her level was high and she was being monitoredbut has not been prescribed and is not taking any medications.6 Managed by PCP, patient states takes Flexeril as qymbxq1Irdduoe by PCP - not currently on meds.8ASCUS/HPV [id number] by PCP - not currently on meds. Pt informed of [facility] services and declined at time of OBI visit. Social History Social History Type Response Smoking Status Former smoker, quit more [place] 30 days ago; Other: stopped with ; entered on: 08/10/21 Sex Female Care Team PersonnelName: Orlando Lara NP Address: [address] [place] [phone]-
--- OUTSIDE RECORDS SUMMARY | 2022-04-02 00:25 | XMS_ITS | Continuity of Care Document ---
:1985 Author Organization [facility] ic Address [address] [place] [phone]- Care Team Providers Name Role Phone Marco SALDIVAR, Orlando Dangelo Primary Care Physician [place] [facility] [place]10[place] - 12/10/[address] [address] Allergies, Adverse Reactions, Alerts Substance Reaction Severity Status NKA Active Medications Plus Iron oral tablet 1 tablet, By Mouth, Daily, # 90 tablet, 3 Refills, Maintenance, 11/22/20 16:41:00 EDT, Tablet, [id number], Partial fill upon patient request if the [...] and depression(Confirmed)8 Active (Confirmed) Active 1Vag/REC culture wbhednsj6Wkzrppi by PCP - not currently on pshr5qpjg treated about 2 years ago; follows up with primary care dpvoktmcs1Zt reports she has not been vaccinated against Covid-19 and does not plan to at the OBI visit.5Managed by PCP - not currently on meds.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 Pt informed of [facility] services and declined at time of OBI visit. Social History Social History Type Response Tobacco Use: 4 or less cigarettes(le ss than 1/4 pack)/day in last 30 days. Sex Female
--- OUTSIDE RECORDS SUMMARY | 2022-04-02 00:25 | XMS_ITS | Continuity of Care Document ---
:1985 Author Organization [facility] ic Address [address] [place] [address]- Care Team Providers Name Role Phone Marco SALDIVAR, Orlando Dangelo Primary Care Physician Encounter [facility] Date(s): 10/27/19 - 11/27/19 [facility] [address] [address]- [facility] Attending Physician: Not on Staff, Attending MD [...] # 70 Gm, 0 Refills, Soft Stop, 11/26/19 15:51:00 EDT, Gel, [id number], 1 application Vaginally Once, 178, cm, 11/25/19 14:10:00 EDT, Height, 70.5, kg, 10/27/19 23:53:00 EDT, Dry Weight Start Date: 11/26/19 Status: OrderedPrenatal Multivitamins with Folic Acid 1 [...] 0 Refills, Maintenance, 10/30/19 11:59:00 EDT, Tablet, [facility]/pharmacy #[id number], 178, cm, 10/27/19 13:06:00 EDT, Height, 70.5, kg, 10/27/19 23:53:00 EDT, Dry Weight Start Date: 10/30/19 Status: OrderedVitamin B6 50 mg oral tablet See Instructions, TAKE 1 TABLET BY MOUTH EVERY DAY, # 30 tablet, Refills 0, Acute, Instructions Replace Required Details, Route to Pharmacy Electronically, [id number], 178, cm, 10/27/19 13:06:00 EDT, Height, 70.5, kg, 10/27/19 23:53:00 EDT, Dry W... Start Date: 11/13/19 Status: OrderedZofran 4 mg oral tablet 1 tablet = 4 mg, By Mouth, Every 8 hours, PRN as needed for nausea/vomiting, # 15 tablet, 1 Refills,Maintenance, 11/25/19 14:31:00 EDT, Tablet, [facility]/pharmacy #[id number], 178, cm, 11/25/19 14:10:00 EDT, [...] years ago; follows up with primary care [id number] added by Discern Expert Social History Social History Type Response Smoking Status Former smoker, quit more [place] n 30 days ago entered on: 10/27/19 Sex Female
--- OUTSIDE RECORDS SUMMARY | 2022-04-02 00:25 | XMS_ITS | Continuity of Care Document ---
:1985 Author Organization [facility] ic Address [address] [place] [phone]- Care Team Providers Name Role Phone Marco SALDIVAR, Orlando Dangelo Primary Care Physician Encounter [facility] Date(s): 01/06/22 - 03/29/[address] [address]- Attending Physician: Not on Staff, Attending MD [...] 0 Refills, Maintenance, 02/21/22 6:48:00 EDT, Suppository, [facility]/pharmacy #[id number], Partial fill upon patient request if the prescription is for a schedule II opioid drug., 153, cm, 02/21/22 0:10... Start Date: 02/21/22 Status: OrderedCeleXA 10 mg oral tablet 10 mg, 1, tablet, By Mouth, Daily, # 30 tablet, Refills 2, Tot. Refills 2, Maintenance, 02/21/22 6:49:00 EDT, Route to [facility]ically, [id number], Partial fill upon patient request if the prescription is for a schedule II opioid drug.... Start Date: 02/21/22 Status: Ordereddocusate sodium 100 mg oral capsule 100 mg, 1, capsule, By Mouth, 2 times a day, # 60 capsule, Refills 0, Tot. Refills 0, Maintenance, 02/21/22 6:48:00 EDT, [id number] fill upon patient request if [...] 0 Refills,Maintenance, 11/17/21 0:13:00 EDT, DIS Tablet, [facility]/pharmacy #[id number], Partial fill upon patient requestif the prescription is for a schedule II opioid d... Start Date: 11/17/21 Status: OrderedPrenatal Multivitamins with Folic Acid 1 mg oral tablet 1 tablet, By Mouth, Daily, # 90 tablet, 3 Refills, Maintenance, 08/10/21 9:21:00 EST, Tablet, [facility]/pharmacy #[id number], Partial fill upon patient request if the prescription is for a schedule II opioid drug., 1 tablet By Mouth Daily, 178, cm, 07/20/21 19:29... Start Date: 08/10/21 Status: OrderedPrenatal Plus Iron oral tablet 1 tablet, By Mouth, Daily, # 90 tablet, 3 Refills, Maintenance, 11/22/20 16:41:00 EDT, Tablet, [facility]/pharmacy #[id number], Partial fill upon patient request if the prescription is for a schedule II opioid drug., 1 tablet By Mouth Daily, 178, cm, 10/25/20 13:3... Start Date: 11/22/20 Status: Orderedsimethicone 80 mg oral tablet, chewable 80 mg, Chew, 3 times a day, PRN, # 90 tablet, Refills 0, Tot. Refills 0, Maintenance, Gas, 02/21/22 6:48:00 EDT, Route to Pharmacy Electronically, [facility]/pharmacy #[id number], Partial fill upon patient request if the prescription is for a schedule II opioid . Start Date: 02/21/22 Status: Ordered Problem List Condition Confirmation Course Effective Dates Status Health Stat us Informant H/O Arthritis Confirmed Active Chronic bipolar Confirmed Active disorder1, 2, 3 H/O Cataract Confirmed Active Not Confirmed Active Vaccinated/COVID-19 4 Thyroid condition5 Confirmed Active Ptyalism Confirmed Active Fibromyalgia6, 7 Confirmed Active H/O Abnormal Confirmed 2020 Active cervical Pap smear8 H/O hemorrhoids Confirmed Active H/O Anxiety and Confirmed Active depression9 Social problem Confirmed Active 1Not currently taking medication, stopped taking prior to . Feels stable. Declines [id number] by PCP - not currently on [id number] treated about 2 years ago; follows up with primary care [id number] reports she has not been vaccinated against Covid-19 and does not plan to at the OBI visit.5Patient reports she is being monitored by PCP, states her level was high and she was being monitoredbut has not been prescribed and is not taking any medications.6 Managed by PCP, patient states takes Flexeril as [id number] by PCP - not currently on meds.8ASCUS/HPV [id number] by PCP - not currently on meds. Pt informed of [facility] services and declined at time of OBI visit. Social History Social History Type Response Smoking Status Former smoker, quit more [place] n 30 days ago; Other: stopped with ; entered on: 08/10/21 Sex Female Patient Care team information PersonnelName: Marco SALDIVAR , Orlando Dangelo Address: Address: [address] [place] [id number]-
--- OUTSIDE RECORDS SUMMARY | 2022-04-02 00:26 | XMS_ITS | Continuity of Care Document ---
:1985 Author Organization [facility] ic Address [address] [place] [address]- Care Team Providers Name Role Phone Marco SALDIVAR, Orlando Dangelo Primary Care Physician Encounter [facility] Date(s): 10/26/21 - 11/25/[address] [address] Allergies, Adverse Reactions, Alerts No Known Allergies Medications cyclobenzaprine 10 mg oral tablet 10 mg, 1, tablet, By Mouth, 3 times a day, # 20 tablet, Refills 0, Tot. Refills 0, Maintenance, 11/21/21 19:57:00 EDT, Route to [facility], [id number], [...] at bedtime, # 30 capsule, 0 Refills, [id number], 153, cm, 08/29/21 14:11:00 EST, Height, 75.3, kg, 12/22/20 23:35:00 EDT, Dry Weight Start Date: 09/20/21 Status: Orderedondansetron 4 mg oral tablet, disintegrating 1 tablet = 4 mg, By Mouth, Every 8 hours, PRN as needed for nausea/vomiting, # 10 tablet, 0 Refills,Maintenance, 11/17/21 0:13:00 EDT, DIS Tablet, [facility]/pharmacy #[id number], Partial fill upon patient requestif the prescription is for a schedule II opioid d... Start Date: 11/17/21 Status: OrderedPrenatal Multivitamins with Folic Acid 1 mg oral tablet 1 tablet, By Mouth, Daily, # 90 tablet, 3 Refills, Maintenance, 08/10/21 9:21:00 EST, Tablet, [facility]/pharmacy #[id number], Partial fill upon patient request if the prescription is for a schedule II opioid drug., 1 tablet By Mouth Daily, 178, cm, 07/20/21 19:29... Start Date: 08/10/21 Status: OrderedPrenatal Plus Iron oral tablet 1 tablet, By Mouth, Daily, # 90 tablet, 3 Refills, Maintenance, 11/22/20 16:41:00 EDT, Tablet, [facility]/pharmacy #[id number], Partial fill upon patient request if the prescription is for a schedule II opioid drug., 1 tablet By Mouth Daily, 178, cm, 10/25/20 13:3... Start Date: 11/22/20 Status: Orderedpyridoxine 25 mg oral tablet 1 tablet = 25 mg, By Mouth, 3 times a day, PRN Nausea & Vomiting, # 60 tablet, 3 Refills, Maintenance, 12/17/20 16:55:00 EDT, [facility]/pharmacy #[id number], Partial fill upon patient request if the prescription is for a schedule II opioid drug., 178, cm, 2... Start Date: 12/17/20 Status: OrderedTums 500 mg oral tablet, chewable 500 mg, 1, tablet, Chew, 2 times a day, # 100 tablet, Refills 0, Tot. Refills 0, Maintenance, 08/23/21 19:02:00 EST, Route to Pharmacy Electronically, [facility]/pharmacy #[id number], Partial fill upon patient request if the [...] smear(Confirmed)10 H/O hemorrhoids(Confirmed) Active H/O HPV infection(Confirmed) 2020 Active H/O Anxiety and Active depression(Confirmed)11 Nausea/vomiting in Active (Confirmed) Obese class I(Confirmed) Active Obesity during (Confirmed) Active Social problem(Confirmed) Active 1Not currently taking medication, stopped taking prior to . Feels stable. Declines [id number] by PCP - not currently on [id number] treated about 2 years ago; follows up with primary care [id number] reports she has not been vaccinated against Covid-19 and does not plan to at the OBI visit.5Patient reports she is being monitored by PCP, states her level was high and she was being monitoredbut has not been prescribed and is not taking any medications.6 Patient states being monitored for blood pressure with PCP but does not have diagnosis of HTN. 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 Pt informed of [facility] services and declined at time of OBI visit. Social History Social History Type Response Smoking Status Former smoker, quit more [place] n 30 days ago; Other: stopped with ; entered on: 08/10/21 Sex Female
--- OUTSIDE RECORDS SUMMARY | 2022-04-02 00:26 | XMS_ITS | Continuity of Care Document ---
:1985 Author Organization [facility] ic Address [address] [place] [id number]- Care Team Providers Name Role Phone Orlando Lara NP Primary Care Physician Encounter [facility] Date(s): 02/03/20 - 03/10/20 [facility] [address] [address]- [facility] Attending Physician: Not on Staff, Attending MD [...] 0 Refills, Maintenance, 10/30/19 11:59:00 EDT, Tablet, [facility]/pharm[facility] #[id number], 178, cm, 10/27/19 13:06:00 EDT, Height, 70.5, kg, 10/27/19 23:53:00 EDT, Dry Weight Start Date: 10/30/19 Status: OrderedVitamin B6 50 mg oral tablet See Instructions, TAKE 1 TABLET BY MOUTH EVERY DAY, # 30 tablet, Refills 0, Acute, Instructions Replace Required Details, Route to Pharmacy Electronically, [id number], 178, cm, 10/27/19 13:06:00 EDT, Height, 70.5, kg, 10/27/19 23:53:00 EDT, Dry W... Start Date: 11/13/19 Status: OrderedZofran 4 mg oral tablet 1 tablet = 4 mg, By Mouth, Every 8 hours, PRN as needed for nausea/vomiting, # 15 tablet, 1 Refills,Maintenance, 11/25/19 14:31:00 EDT, Tablet, [facility]/pharmacy #[id number], 178, cm, 11/25/19 14:10:00 EDT, Height, [...]
--- OUTSIDE RECORDS SUMMARY | 2022-04-02 00:26 | XMS_ITS | Continuity of Care Document ---
:1985 Author Organization [facility] ic Address [address] [place] [address]- Care Team Providers Name Role Phone Marco SALDIVAR, Orlando Dangelo Primary Care Physician Encounter [facility] [place] Date(s): 08/01/21 - 08/31/[address] [address]- Allergies, Adverse Reactions, Alerts No Known Allergies Medications doxylamine 25 mg oral tablet 1 tablet = 25 mg, By Mouth, Daily at bedtime, Take one tablet before bed. May take additional tabletin the morning if nausea still persistent, # 60 tablet, 3 Refills, Maintenance, 12/17/20 16:55:00 EDT, [id number], Partial fill upon patient r... Start Date: 12/17/20 Status: Orderedfamotidine 10 mg oral tablet 1 tablet = 10 mg, By Mouth, Daily in AM, # 56 tablet, 0 Refills, Maintenance, 08/23/21 19:01:00 EST,Tablet, [id number], Partial fill upon patient request if the prescription is for a schedule II opioid drug., 153, cm, 08/11/21 15:01:00 EST, H... Start Date: 08/23/21 Status: Orderedomeprazole 20 mg oral delayed release tablet 1 tablet = 20 mg, By Mouth, Daily at bedtime, # 30 tablet, 0 Refills, Maintenance, 08/23/21 19:03:00EST, EC Tablet, [id number], Partial fill upon patient request if the prescription is for a schedule II opioid drug., 153, cm, 08/11/21 15:01:0... Start Date: 08/23/21 Status: OrderedPrenatal Multivitamins with Folic Acid 1 mg oral tablet 1 tablet, By Mouth, Daily, # 90 tablet, 3 Refills, Maintenance, 08/10/21 9:21:00 EST, Tablet, [facility]/pharmacy #[id number], Partial fill upon patient request if the prescription is for a schedule II opioid drug., 1 tablet By Mouth Daily, 178lata, 07/20/21 19:29... Start Date: 08/10/21 Status: OrderedPrenatal Plus Iron oral tablet 1 tablet, By Mouth, Daily, # 90 tablet, 3 Refills, Maintenance, 11/22/20 16:41:00 EDT, Tablet, [facility]/pharmacy #[id number], Partial fill upon patient request if the prescription is for a schedule II opioid drug., 1 tablet By Mouth Daily, 178lata, 10/25/20 13:3... Start Date: 11/22/20 Status: Orderedpyridoxine 25 mg oral tablet 1 tablet = 25 mg, By Mouth, 3 times a day, PRN Nausea & Vomiting, # 60 tablet, 3 Refills, Maintenance, 12/17/20 16:55:00 EDT, [facility]/pharmacy #[id number], Partial fill upon patient request if the prescription is for a schedule II opioid drug., 178, cm, ... Start Date: 12/17/20 Status: OrderedTums 500 mg oral tablet, chewable 500 mg, 1, tablet, Chew, 2 times a day, # 100 tablet, Refills 0, Tot. Refills 0, Maintenance, 08/23/21 19:02:00 EST, Route to Pharmacy Electronically, [facility]/pharmacy #[id number], Partial fill upon patient request if the prescription is for a schedule II opioi... Start Date: 08/23/21 Status: OrderedZofran 4 mg oral tablet 1 tablet = 4 mg, By Mouth, 3 times a day, PRN Nausea, # 30 tablet, 2 Refills, Maintenance, 08/02/21 20:34:00 EST, [facility]/pharmacy #[id number], Partial fill upon patient request if the prescription is for a schedule II opioid drug., 178 cm, 07/20/21 19:29:00 E... Start Date: 08/02/21 Status: Ordered Problem List Condition Effective Dates Status Health Status Informant H/O Arthritis(Confirmed) Active H/O GBS bacteriuria(Confirmed) Active Chronic bipolar disorder(Confirmed)1, Active 2, 3 H/O Cataract(Confirmed) Active H/O Constipation(Confirmed) Active Not Vaccinated/COVID-19(Confirmed)4 Active Thyroid condition(Confirmed)5 Active Elevated blood pressure Active reading(Confirmed)6 Ptyalism(Confirmed) Active Fibromyalgia(Confirmed)7, 8 Active H/O x3(Confirmed)9 Active H/O Abnormal cervical Pap 2020 Active smear(Confirmed)10 H/O hemorrhoids(Confirmed) Active H/O HPV infection(Confirmed) 2019 Active H/O Anxiety and Active depression(Confirmed)11 Nausea/vomiting in Active (Confirmed) Obese class I(Confirmed) Active 1Not currently taking medication, stopped taking prior to . Feels stable. Declines [id number] by PCP - not currently on [id number] treated about 2 years ago; follows up with primary care [id number] reports she has not been vaccinated against Covid-19 and does not plan to at the OBI visit.5Patient reports she is being monitored by PCP, states her level was high and she was being monitoredbut has not been prescribed and is not taking any medications.6 Patient states being monitored for blood pressure with PCP but does not have diagnosis of HTN. 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 Pt informed of [facility] services and declined at time of OBI visit. Social History Social History Type Response Smoking Status Former smoker, quit more [place] n 30 days ago; Other: stopped with ; entered on: 08/10/21 Sex Female
--- OUTSIDE RECORDS SUMMARY | 2022-04-02 00:26 | XMS_ITS | Continuity of Care Document ---
:1985 Author Organization [facility] Address [address] [place] [id number]- Care Team Providers Name Role Phone Marco SALDIVAR, Orlando Dangelo Primary Care Physician Encounter [facility] Date(s): 12/17/20 - 04/14/[address] [address]- Attending Physician: Not on Staff, Attending MD [...] 3 Refills, Maintenance, 12/17/20 16:55:00 EDT, [id number], Partial fill upon patient request if the [...] 1Managed by PCP - not currently on [id number] treated about 2 years ago; follows up with primary care [id number] reports she has not been vaccinated against Covid-19 and does not plan to at the OBI visit.4Managed by PCP - not currently on meds.5Pt signed medical release 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 Pt informed of [facility] services and declined at time of OBI visit. Social History Social History Type Response Tobacco Use: 4 or less cigarettes(le ss than 1/4 pack)/day in last 30 days. Sex Female
--- OUTSIDE RECORDS SUMMARY | 2022-04-02 00:26 | XMS_ITS | Continuity of Care Document ---
:1985 Author Organization [facility] Address [address] [place] [address]- Care Team Providers Name Role Phone Marco SALDIVAR, Orlando Dangelo Primary Care Physician Encounter [facility] Date(s): 02/17/22 - 02/21/[address] [address]- Discharge Disposition: A-D/C Home Attending Physician: Thang Patton MD Admitting Physician: Thang Patton MD Referring Physician: Thang Patton MD Allergies, Adverse Reactions, Alerts No Known [...] Refills 0, Bárbara... Start Date: 02/21/22 Status: OrderedAcetaminophen Tablet 650 mg, Tablet, By Mouth, (1-3), may give 325mg per patient preference and re- dose with 325mg within4 hours, if needed. Patient should only receive a total of 650mg of Acetaminophen every 4 hours., 02/21/22 14:00:00 EDT Start Date: 02/21/22 Stop Date: 02/21/22 Status: Completedbisacodyl 10 mg rectal suppository 1 supp = 10 mg, Rectally, Daily, PRN Constipation, # 5 supp, 0 Refills, Maintenance, 02/21/22 6:48:00 EDT, Suppository, [id number], Partial fill upon patient request if the prescription is for a schedule II opioid drug., 153, cm, 02/21/22 0:10... Start Date: 02/21/22 Status: OrderedCeleXA 10 mg oral tablet 10 mg, 1, tablet, By Mouth, Daily, # 30 tablet, Refills 2, Tot. Refills 2, Maintenance, 02/21/22 6:49:00 EDT, Route to Pharmacy Electronically, [facility]/pharmacy #[id number], Partial fill upon patient request if the prescription is for a schedule II opioid drug.... Start Date: 02/21/22 Status: Ordereddocusate sodium 100 mg oral capsule 100 mg, 1, capsule, By Mouth, 2 times a day, # 60 capsule, Refills 0, Tot. Refills 0, Maintenance, 02/21/22 6:48:00 EDT, Route to Pharmacy Electronically, [facility]/pharmacy #[id number], Partial fill upon patient request if [...] 0 Refills,Maintenance, 11/17/21 0:13:00 EDT, DIS Tablet, [facility]/pharmacy #[id number], Partial fill upon patient requestif the prescription is for a schedule II opioid d... Start Date: 11/17/21 Status: OrderedoxyCODONE 5 mg oral tablet 5 mg, 1, tablet, By Mouth, Every 3 hours, PRN, (7-10), # 10 tablet, Refills 0, Tot. Refills 0, Acute02/28/22 0:00:00 EDT, Pain , Severe, 02/21/22 6:48:00 EDT, Route to Pharmacy Electronically, [facility]/pharmacy #[id number], Partial fill upon patient request if... Start Date: 02/21/22 Stop Date: 02/28/22 Status: OrderedOxyCODONE IR Tablet 5 mg, Tablet, By Mouth, Every 3 hours, PRN for Pain , Severe, (7-10), Routine, 02/19/22 0:40:00 EDT Start Date: 02/19/22 Stop Date: 02/26/22 Status: OrderedPrenatal Multivitamins with Folic Acid 1 mg oral tablet 1 tablet, By Mouth, Daily, # 90 tablet, 3 Refills, Maintenance, 08/10/21 9:21:00 EST, Tablet, [facility]/pharmacy #[id number], Partial fill upon patient request if the prescription is for a schedule II opioid drug., 1 tablet By Mouth Daily, 178, cm, 07/20/21 19:29... Start Date: 08/10/21 Status: OrderedPrenatal Plus Iron oral tablet 1 tablet, By Mouth, Daily, # 90 tablet, 3 Refills, Maintenance, 11/22/20 16:41:00 EDT, Tablet, [facility]/pharmacy #[id number], Partial fill upon patient request if the prescription is for a schedule II opioid drug., 1 tablet By Mouth Daily, 178, cm, 10/25/20 13:3... Start Date: 11/22/20 Status: Orderedsimethicone 80 mg oral tablet, chewable 80 mg, Chew, 3 times a day, PRN, # 90 tablet, Refills 0, Tot. Refills 0, Maintenance, Gas, 02/21/22 6:48:00 EDT, Route to Pharmacy Electronically, [facility]/pharmacy #[id number], Partial fill upon patient request if the prescription is for a schedule II opioid Start Date: 02/21/22 Status: Ordered Problem List Condition Effective Dates Status Health Status Informant H/O Arthritis(Confirmed) Active Chronic bipolar disorder(Confirmed)1, Active 2, 3 H/O Cataract(Confirmed) Active H/O Constipation(Confirmed) Active Not Vaccinated/COVID-19(Confirmed)4 Active Thyroid condition(Confirmed)5 Active Ptyalism(Confirmed) Active Fibromyalgia(Confirmed)6, 7 Active H/O x3(Confirmed)8 Active H/O Abnormal cervical Pap 2020 Active smear(Confirmed)9 H/O hemorrhoids(Confirmed) Active H/O Anxiety and Active depression(Confirmed)10 Obese class II(Confirmed) Active Obesity during (Confirmed) Active Social problem(Confirmed) Active 1Not currently taking medication, stopped taking prior to . Feels stable. 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 Pt informed of [facility] services and declined at time of OBI visit. Procedures Procedure Date Related Diagnosis Body Site Status delivery only; 02/17/22 Comp leted Vital Signs Most recent to oldest 1 2 3 [Reference Range]: Height 153 cm 153 cm 153 cm (02/21/22 12:10 AM) (02/20/22 3:10 PM) (02/20/22 7: 30 AM) Weight 82 kg 82 kg 82.0 kg (02/17/22 8:51 PM) (02/17/22 8:51 PM) (02/17/22 2:4 3 PM) Oxygen Saturation [94-100 %] 99 % 100 % 99 % (02/21/22 8:00 AM) (02/21/22 12:10 AM) (02/20/22 3: 10 PM) Pulse Rate [55-90 bpm] 85 bpm 86 bpm 83 bpm (02/21/22 8:00 AM) (02/21/22 12:10 AM) (02/20/22 3: 10 PM) Body Mass Index [18.5-24.99] 35.03 *>HHI* (02/17/22 8:51 PM) Blood Pressure [90-138/55-84 113/81 mm Hg 126/77 mm Hg 118 /67 mm Hg mm Hg] (02/21/22 8:00 AM) (02/21/22 12:10 AM) (02/20/22 3: 10 PM) Respiratory Rate [16-30 18 br/min 18 br/min 18 br/mi n br/min] (02/21/22 3:26 PM) (02/21/22 3:26 PM) (02/21/22 2:2 6 PM) Temperature [96.8-100.4 DegF] 98.1 DegF 97.9 DegF 97 .3 DegF (02/21/22 8:00 AM) (02/21/22 12:10 AM) (02/20/22 3: 10 PM) Mode of Delivery (Oxygen) Room air Room air Room a ir (02/21/22 8:00 AM) (02/21/22 12:10 AM) (02/20/22 3: 10 PM) Blood pressure sites Arm, right Arm, right Arm, left (02/21/22 8:00 AM) (02/21/22 12:10 AM) (02/20/22 3: 10 PM) Temperature Route Oral Oral Oral (02/21/22 8:00 AM) (02/21/22 12:10 AM) (02/20/22 3: 10 PM) Dry Weight 82 kg (02/17/22 8:51 PM) Weight Obtained Via Standing scale (02/17/22 2:43 PM) Social History Social History Type Response Smoking Status Former smoker, quit more [place] 30 days ago; Other: stopped with ; entered on: 08/10/21 Sex Female
--- OUTSIDE RECORDS SUMMARY | 2022-04-02 00:26 | XMS_ITS | Continuity of Care Document ---
:[address] Organization [facility] Address [address] [place] [address], [address] [place] [address]- Care Team Providers Name Role Phone Orlando Lara NP Primary Care Physician [place] [facility] [place] [facility] [place] [id number] Date(s): 09/22/20 - 12/08/[address] [facility] [address] [facility] [place] [id number] Attending Physician: Nicole Chahal MD Referring Physician: Orlando Lara NP Allergies, [...] cm, 10/25/20 13:3... Start Date: 11/22/20 Status: Orderedterconazole topical 0.8% cream 1 application, Vaginally, Daily at bedtime, for 3 days, # 20 Gm, 0 Refills, Acute 12/09/20 16:52:00 EDT, 12/06/20 16:52:00 EDT, Cream, [id number], Partial fill upon patient request if the prescription is for a schedule II opioid drug., 1 appli... Start Date: 12/06/20 Stop Date: 12/09/20 Status: Ordered Problem List Condition Effective Dates [...] Hemoglobinopathy(Confirmed) H/O Abnormal cervical Pap 2019 Active smear(Confirmed)7 H/O hemorrhoids(Confirmed) Active H/O HPV infection(Confirmed) 2019 Active H/O Anxiety and depression(Confirmed)8 Active (Confirmed) Active 1Vag/REC culture [id number] by PCP - not currently on oolk1rctj treated about 2 years ago; follows up with primary care qnddasiam1Cc reports she has not been vaccinated against Covid-19 and does not plan to at the OBI visit.5Managed by PCP - not currently on meds.6Pt signed medical release requesting 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 Pt informed of [facility] services and declined at time of OBI visit. Social History Social History Type Response Tobacco Use: 4 or less cigarettes(le ss than 1/4 pack)/day in last 30 days. Sex Female
--- OUTSIDE RECORDS SUMMARY | 2022-04-02 00:26 | XMS_ITS | Continuity of Care Document ---
:1985 Author Organization [facility] Address [address] [place] [address]- Care Team Providers Name Role Phone Marco SALDIVAR, Orlando Dangelo Primary Care Physician Encounter [facility] Date(s): 02/23/22 - 03/25/22 [facility] [address] [address] Allergies, Adverse Reactions, Alerts No Known Allergies [...] 02/21/22 6:48:00 EDT, [id number] Partial fill upon patient request if [...] 0 Refills,Maintenance, 11/17/21 0:13:00 EDT, DIS Tablet, [facility]/pharmacy #[id number], Partial fill upon patient requestif the prescription is for a schedule II opioid d... Start Date: 11/17/21 Status: OrderedPrenatal Multivitamins with Folic Acid 1 mg oral tablet 1 tablet, By Mouth, Daily, # 90 tablet, 3 Refills, Maintenance, 08/10/21 9:21:00 EST, Tablet, [facility]/pharmacy #[id number], Partial fill upon patient request if the prescription is for a schedule II opioid drug., 1 tablet By Mouth Daily, 178, cm, 07/20/21 19:29... Start Date: 08/10/21 Status: OrderedPrenatal Plus Iron oral tablet 1 tablet, By Mouth, Daily, # 90 tablet, 3 Refills, Maintenance, 11/22/20 16:41:00 EDT, Tablet, [facility]/pharmacy #[id number], Partial fill upon patient request if the prescription is for a schedule II opioid drug., 1 tablet By Mouth Daily, 178, cm, 10/25/20 13:3... Start Date: 11/22/20 Status: Orderedsimethicone 80 mg oral tablet, chewable 80 mg, Chew, 3 times a day, PRN, # 90 tablet, Refills 0, Tot. Refills 0, Maintenance, Gas, 02/21/22 6:48:00 EDT, Route to Pharmacy Electronically, [facility]/pharmacy #[id number], Partial fill upon patient request if the [...] taking prior to . Feels stable. Declines [id number] by PCP - not currently on dzsf6vfii treated about 2 years ago; follows up with primary care [id number] reports she has not been vaccinated against Covid-19 and does not plan to at the OBI visit.5Patient reports she is being monitored by PCP, states her level was high and she was being monitoredbut has not been prescribed and is not taking any medications.6 Managed by PCP, patient states takes Flexeril as [id number] by PCP - not currently on meds.8ASCUS/HPV [id number] by PCP - not currently on meds. Pt informed of [facility] services and declined at time of OBI visit. Social History Social History Type Response Smoking Status Former smoker, quit more [place] n 30 days ago; Other: stopped with ; entered on: 08/10/21 Sex Female Care Team PersonnelName: Marco SALDIVAR , Orlando Dangelo Address: [address] [place] [id number]-
--- OUTSIDE RECORDS SUMMARY | 2022-04-02 00:26 | XMS_ITS | Continuity of Care Document ---
:1985 Author Organization [facility] Address [address] [place] [address]- Care Team Providers Name Role Phone Marco SALDIVAR, Orlando Dangelo Primary Care Physician Encounter [facility] Date(s): 01/12/21 - 02/17/[address] [address]- Attending Physician: Amber Peter DO Admitting Physician: Amber Peter DO Referring Physician: Shirley Sierra CNM Allergies, Adverse Reactions, Alerts Substance Reaction Severity [...] 1 tablet By Mouth Daily, 178, cm, 04/26/21 13:3... Start Date: 11/22/20 Status: Orderedpyridoxine 25 mg oral tablet 1 tablet = 25 mg, By Mouth, 3 times a day, PRN Nausea & Vomiting, # 60 tablet, 3 Refills, Maintenance, 12/17/20 16:55:00 EDT, 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 Pt informed of [facility] services and declined at time of OBI visit. Social History Social History Type Response Tobacco Use: 4 or less cigarettes(le ss than 1/4 pack)/day in last 30 days. Sex Female
--- OUTSIDE RECORDS SUMMARY | 2022-04-02 00:26 | XMS_ITS | Continuity of Care Document ---
:1985 Author Organization [facility] Address [address] [place] [address]- Care Team Providers Name Role Phone Marco SALDIVAR, Orlando Dangelo Primary Care Physician Encounter [facility] Date(s): 07/20/21 - 08/19/[address] [address]- Allergies, Adverse Reactions, Alerts No Known Allergies Medications doxylamine 25 mg oral tablet 1 tablet = 25 mg, By Mouth, Daily at bedtime, Take one tablet before bed. May take additional tabletin the morning if nausea still persistent, # 60 tablet, 3 Refills, Maintenance, 12/17/20 16:55:00 EDT, [facility]/pharmacy #[id number], Partial fill upon patient r... Start Date: 12/17/20 Status: OrderedFlexeril 10 mg oral tablet 10 mg, By Mouth, 3 times a day, Refills 0, Maintenance, 12/17/20 16:29:00 EDT, Partial fill upon patient request if the prescription is for a schedule II opioid drug. Start Date: 12/17/20 Status: OrderedPrenatal Multivitamins with Folic Acid 1 mg oral tablet 1 tablet, By Mouth, Daily, # 90 tablet, 3 Refills, Maintenance, 08/10/21 9:21:00 EST, Tablet, [id number], Partial fill upon patient request if the prescription is for a schedule II opioid drug., 1 tablet By Mouth Daily, 178, cm, 07/20/21 19:29... Start Date: 08/10/21 Status: OrderedPrenatal Plus Iron oral tablet 1 tablet, By Mouth, Daily, # 90 tablet, 3 Refills, Maintenance, 11/22/20 16:41:00 EDT, Tablet, [facility]/pharmacy #[id number], Partial fill upon patient request if the prescription is for a schedule II opioid drug., 1 tablet By Mouth Daily, 178, cm, 10/25/20 13:3... Start Date: 11/22/20 Status: Orderedpyridoxine 25 mg oral tablet 1 tablet = 25 mg, By Mouth, 3 times a day, PRN Nausea & Vomiting, # 60 tablet, 3 Refills, Maintenance, 12/17/20 16:55:00 EDT, [facility]/pharmacy #[id number], Partial fill upon patient request if the prescription is for a schedule II opioid drug., 178, cm, ... Start Date: 12/17/20 Status: OrderedZofran 4 mg oral tablet 1 tablet = 4 mg, By Mouth, 3 times a day, PRN Nausea, # 30 tablet, 2 Refills, Maintenance, 08/02/21 20:34:00 EST, [facility]/pharmacy #[id number], Partial fill upon patient request if the prescription is for a schedule II opioid drug., 178, lata, 07/20/21 19:29:00 E... 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 Feels stable. Declines TCL4Aruypdi by PCP - not currently on trpq2ceez treated about 2 years ago; follows up with primary care sjmprcqmx7Qe reports she has not been vaccinated against Covid-19 and does not plan to at the OBI visit.5Patient reports she is being monitored by PCP, states her level was high and she was being monitoredbut has not been prescribed and is not taking any medications.6 Patient states being monitored for blood pressure with PCP but does not have diagnosis of HTN. 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 Pt informed of [facility] services and declined at time of OBI visit. Social History Social History Type Response Smoking Status Former smoker, quit more [place] 30 days ago; Other: stopped with ; entered on: 08/10/21 Sex Female
--- OUTSIDE RECORDS SUMMARY | 2022-04-02 00:26 | XMS_ITS | Continuity of Care Document ---
:1985 Author Organization [facility] ic Address [address] [place] [address]- Care Team Providers Name Role Phone Marco SALDIVAR, Orlando Dangelo Primary Care Physician Encounter [facility] Date(s): 12/08/21 - 01/07/[address] [address] Allergies, Adverse Reactions, Alerts No Known Allergies Immunizations Given and Recorded Vaccine Date Status Refusal Reason tetanus/diphtheria/pertussis, acel(Tdap) 12/19/21 Given Medications cyclobenzaprine 10 mg oral tablet 10 mg, 1, tablet, By Mouth, 3 times a day, # 20 tablet, Refills 0, Tot. Refills 0, Maintenance, 12/19/21 14:49:00 EDT, Route to Pharmacy Electronically, [facility]/pharmacy #[id number], Partial fill upon patient request if the prescription is for a schedule II opi... Start Date: 12/19/21 Status: Ordereddoxylamine 25 mg oral tablet 1 [...] AM, # 56 tablet, 0 Refills, Maintenance, 12/19/21 14:49:00 EDT,Tablet, [facility]/pharmacy #[id number], Partial fill upon patient request if the prescription is for a schedule II opioid drug., 153, cm, 12/19/21 14:30:00 EDT, H... Start Date: 12/19/21 Status: Orderedomeprazole 20 mg oral enteric coated capsule 1 capsule, By Mouth, Daily at bedtime, # 30 capsule, 0 Refills, [id number], 153, cm, 08/29/21 14:11:00 EST, Height, 75.3, kg, 12/22/20 23:35:00 EDT, Dry Weight Start Date: 09/20/21 Status: Orderedondansetron 4 mg oral tablet, disintegrating 1 tablet = 4 mg, By Mouth, Every 8 hours, PRN as needed for nausea/vomiting, # 10 tablet, 0 Refills,Maintenance, 11/17/21 0:13:00 EDT, DIS Tablet, [facility]/pharmacy #[id number], Partial fill upon patient requestif the prescription is for a schedule II opioid d... Start Date: 11/17/21 Status: OrderedPrenatal Multivitamins with Folic Acid 1 mg oral tablet 1 tablet, By Mouth, Daily, # 90 tablet, 3 Refills, Maintenance, 08/10/21 9:21:00 EST, Tablet, [facility]/pharmacy #[id number], Partial fill upon patient request if the prescription is for a schedule II opioid drug., 1 tablet By Mouth Daily, 178, cm, 07/20/21 19:29... Start Date: 08/10/21 Status: OrderedPrenatal Plus Iron oral tablet 1 tablet, By Mouth, Daily, # 90 tablet, 3 Refills, Maintenance, 11/22/20 16:41:00 EDT, Tablet, [facility]/pharmacy #[id number], Partial fill upon patient request if [...] 08/23/21 19:02:00 EST, Route to Pharmacy Electronically, [facility]/pharmacy #[id number], Partial fill upon patient request if the [...] H/O Anxiety and Active depression(Confirmed)10 Obese class I(Confirmed) Active Obesity during (Confirmed) Active Social problem(Confirmed) Active 1Not currently taking medication, stopped taking prior to . Feels stable. 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 Pt informed of [facility] services and declined at time of OBI visit. Social History Social History Type Response Smoking Status Former smoker, quit more [place] 30 days ago; Other: stopped with ; entered on: 08/10/21 Sex Female
--- OUTSIDE RECORDS SUMMARY | 2022-04-02 00:26 | XMS_ITS | Continuity of Care Document ---
:1985 Author Organization [facility] Address [address] [place] [address]- Care Team Providers Name Role Phone Marco SALDIVAR, Orlando Dangelo Primary Care Physician Encounter [facility] Date(s): 01/29/20 - 02/28/20 [facility] [address] [place] [address]- [facility] Allergies, Adverse Reactions, Alerts Substance Reaction Severity [...] 0 Refills, Maintenance, 10/30/19 11:59:00 EDT, Tablet, [facility]/pharmacy #[id number], 178, cm, 10/27/19 13:06:00 EDT, Height, 70.5, kg, 10/27/19 23:53:00 EDT, Dry Weight Start Date: 10/30/19 Status: OrderedVitamin B6 50 mg oral tablet See Instructions, TAKE 1 TABLET BY MOUTH EVERY DAY, # 30 tablet, Refills 0, Acute, Instructions Replace Required Details, Route to Pharmacy Electronically, [facility] ST[id number], 178, cm, 10/27/19 13:06:00 EDT, Height, 70.5, kg, 10/27/19 23:53:00 EDT, Dry W... Start Date: 11/13/19 Status: OrderedZofran 4 mg oral tablet 1 tablet = 4 mg, By Mouth, Every 8 hours, PRN as needed for nausea/vomiting, # 15 tablet, 1 Refills,Maintenance, 11/25/19 14:31:00 EDT, Tablet, [facility]/pharmacy #[id number], 178, cm, 11/25/19 14:10:00 [...]
--- OUTSIDE RECORDS SUMMARY | 2022-04-02 00:26 | XMS_ITS | Continuity of Care Document ---
:1985 Author Organization [facility] ic Address [address] [place] [address]- Care Team Providers Name Role Phone Marco SALDIVAR, Orlando Dangelo Primary Care Physician [place] [facility] [id number] Date(s): 02/17/20 - 03/18/20 [facility] [address] [address]- [facility] Attending Physician: Lilian Gilmore Admitting Physician: Lilian Gilmore Referring Physician: trLilian Allergies, Adverse Reactions, Alerts Substance Reaction Severity [...] 0 Refills, Maintenance, 10/30/19 11:59:00 EDT, Tablet, [facility]/pharmacy #[id number], 178, cm, 10/27/19 13:06:00 EDT, Height, 70.5, kg, 10/27/19 23:53:00 EDT, Dry Weight Start Date: 10/30/19 Status: OrderedVitamin B6 50 mg oral tablet See Instructions, TAKE 1 TABLET BY MOUTH EVERY DAY, # 30 tablet, Refills 0, Acute, Instructions Replace Required Details, Route to Pharmacy Electronically, [id number], 178, cm, 10/27/19 13:06:00 EDT, Height, 70.5, kg, 10/27/19 23:53:00 EDT, Dry W... Start Date: 11/13/19 Status: OrderedZofran 4 mg oral tablet 1 tablet = 4 mg, By Mouth, Every 8 hours, PRN as needed for nausea/vomiting, # 15 tablet, 1 Refills,Maintenance, 11/25/19 14:31:00 EDT, Tablet, [facility]/pharmacy #[id number], 178, cm, 11/25/19 14:10:00 EDT, Height, [...]
--- OUTSIDE RECORDS SUMMARY | 2022-04-02 00:26 | XMS_ITS | Continuity of Care Document ---
:1985 Author Organization [facility] ic Address [address] [place] [address]- Care Team Providers Name Role Phone Marco SALDIVAR, Orlando Dangelo Primary Care Physician [place] [facility] [place] - 01/22/20 [facility] [address] [address]- [facility] Attending Physician: Not on Staff, Attending MD [...] Replace Required Details, Route to Pharmacy Electronically, [id number], 178, cm, 10/27/19 13:06:00 EDT, Height, 70.5, [...] years ago; follows up with primary care [id number] added by Discern Expert Social History Social History Type Response Smoking Status Former smoker, quit more [place] n 30 days ago entered on: 10/27/19 Sex Female
--- OUTSIDE RECORDS SUMMARY | 2022-04-02 00:26 | XMS_ITS | Continuity of Care Document ---
:1985 Author Organization [facility] Address [address] [place] [address]- Care Team Providers Name Role Phone Marco SALDIVAR, Orlando Dangelo Primary Care Physician Encounter [facility] [place] Date(s): 09/28/21 - 10/28/21 [facility] [address] [address] Allergies, Adverse Reactions, Alerts No Known Allergies Medications doxylamine 25 mg oral tablet 1 tablet = 25 mg, By Mouth, Daily at bedtime, t, # 60 tablet, 3 Refills, Maintenance, 10/17/21 13:50:00 EDT, [facility]/pharmacy #[id number], Partial fill upon patient request if the prescription is for a schedule II opioid drug., 153, cm, 10/17/21 13:09:00 EDT, H... Start Date: 10/17/21 Status: Orderedfamotidine 10 mg oral tablet 1 tablet = 10 mg, By Mouth, Daily in AM, # 56 tablet, 0 Refills, Maintenance, 08/23/21 19:01:00 EST,Tablet, [facility]/pharmacy #[id number], Partial fill upon patient request if the prescription is for a schedule II opioid drug., 153, cm, 08/11/21 15:01:00 EST, H... Start Date: 08/23/21 Status: Orderedomeprazole 20 mg oral enteric coated capsule 1 capsule, By Mouth, Daily at bedtime, # 30 capsule, 0 Refills, [id number], 153, cm, 08/29/21 14:11:00 EST, Height, 75.3, kg, 12/22/20 23:35:00 EDT, Dry Weight Start Date: 09/20/21 Status: OrderedPrenatal Multivitamins with Folic Acid 1 mg oral tablet 1 tablet, By Mouth, Daily, # 90 tablet, 3 Refills, Maintenance, 08/10/21 9:21:00 EST, Tablet, [facility]/pharmacy #[id number], Partial fill upon patient request if the prescription is for a schedule II opioid drug., 1 tablet By Mouth Daily, 178lata, 07/20/21 19:29... Start Date: 08/10/21 Status: OrderedPrenatal Plus Iron oral tablet 1 tablet, By Mouth, Daily, # 90 tablet, 3 Refills, Maintenance, 11/22/20 16:41:00 EDT, Tablet, [facility]/pharmacy #[id number], Partial fill upon patient request if the prescription is for a schedule II opioid drug., 1 tablet By Mouth Daily, 178lata, 10/25/20 13:3... Start Date: 11/22/20 Status: Orderedpyridoxine 25 mg oral tablet 1 tablet = 25 mg, By Mouth, 3 times a day, PRN Nausea & Vomiting, # 60 tablet, 3 Refills, Maintenance, 12/17/20 16:55:00 EDT, [facility]/pharmacy #[id number], Partial fill upon patient request if the prescription is for a schedule II opioid drug., 178, cm, ... Start Date: 12/17/20 Status: OrderedTums 500 mg oral tablet, chewable 500 mg, 1, tablet, Chew, 2 times a day, # 100 tablet, Refills 0, Tot. Refills 0, Maintenance, 08/23/21 19:02:00 EST, Route to Pharmacy Electronically, [facility]/pharmacy #[id number], Partial fill upon patient request if the prescription is for a schedule II opioi... Start Date: 08/23/21 Status: OrderedZofran 4 mg oral tablet 1 tablet = 4 mg, By Mouth, 3 times a day, PRN Nausea, # 30 tablet, 2 Refills, Maintenance, 08/02/21 20:34:00 EST, [facility]/pharmacy #[id number], Partial fill upon [...] taking prior to . Feels stable. Declines [id number] by PCP - not currently on [id number] treated about 2 years ago; follows up with primary care [id number] reports she has not been vaccinated against Covid-19 and does not plan to at the OBI visit.5Patient reports she is being monitored by PCP, states her level was high and she was being monitoredbut has not been prescribed and is not taking any medications.6 Patient states being monitored for blood pressure with PCP but does not have diagnosis of HTN. 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 Pt informed of [facility] services and declined at time of OBI visit. Social History Social History Type Response Smoking Status Former smoker, quit more [place] n 30 days ago; Other: stopped with ; entered on: 08/10/21 Sex Female
--- OUTSIDE RECORDS SUMMARY | 2022-04-02 00:26 | XMS_ITS | Continuity of Care Document ---
:1985 Author Organization [facility] Address [address] [place] [address]- Care Team Providers Name Role Phone Marco SALDIVAR, Orlando Dangelo Primary Care Physician En[place] [facility] [place] Date(s): 04/06/20 - 05/06/20 [facility] [place] [address], [address] [place] [id number] Allergies, Adverse Reactions, Alerts Substance Reaction Severity Status NKA Active Medications Diflucan 150 mg oral tablet 1 tablet = 150 mg, By Mouth, Once, # 1 tablet, 0 Refills, Soft Stop, 04/06/20 12:29:00 EDT, [id number], 178, cm, 04/05/20 13:21:00 EDT, Height, 70.5, kg, 10/27/19 23:53:00 EDT, Dry Weight Start Date: 04/06/20 Status: Ordered Problem List Condition Effective Dates Status Health Status Informant Arthritis(Confirmed) Active Potential exposure to STD(Confirmed) Active Chronic bipolar disorder(Confirmed)1 Active Fibromyalgia(Confirmed) Active History of (Confirmed) Active History of abnormal cervical Pap Active smear(Confirmed) (Confirmed) Active 1last treated about 2 years ago; follows up with primary care currently Social History Social History Type Response Smoking Status Former smoker, quit more [place] n 30 days ago entered on: 10/27/19 Sex Female
--- OUTSIDE RECORDS SUMMARY | 2022-04-02 00:26 | XMS_ITS | Continuity of Care Document ---
:1985 Author Organization [facility] ic Address [address] [place] [id number]- Care Team Providers Name Role Phone Marco SALDIVAR, Orlando Dangelo Primary Care Physician [place] [facility] [place] Date(s): 01/14/20 - 02/19/20 [facility] [address] [address]- [facility] Attending Physician: Debbi Garcia MD Admitting Physician: Debbi Garcia MD Referring Physician: Courtney Davis NP Allergies, Adverse Reactions, Alerts Substance Reaction [...] 0 Refills, Maintenance, 10/30/19 11:59:00 EDT, Tablet, [facility]/pharmacy #[id number], 178, cm, 10/27/19 13:06:00 EDT, Height, 70.5, kg, 10/27/19 23:53:00 EDT, Dry Weight Start Date: 10/30/19 Status: OrderedVitamin B6 50 mg oral tablet See Instructions, TAKE 1 TABLET BY MOUTH EVERY DAY, # 30 tablet, Refills 0, Acute, Instructions Replace Required Details, Route to Pharmacy Electronically, [id number], 178, cm, 10/27/19 13:06:00 EDT, Height, 70.5, kg, 10/27/19 23:53:00 EDT, Dry W... Start Date: 11/13/19 Status: OrderedZofran 4 mg oral tablet 1 tablet = 4 mg, By Mouth, Every 8 hours, PRN as needed for nausea/vomiting, # 15 tablet, 1 Refills,Maintenance, 11/25/19 14:31:00 EDT, Tablet, [facility]/pharmacy #[id number], 178, cm, 11/25/19 14:10:00 [...]
--- OUTSIDE RECORDS SUMMARY | 2022-04-02 00:26 | XMS_ITS | Continuity of Care Document ---
:1985 Author Organization [facility] Address [address] [place] [address]- Care Team Providers Name Role Phone Marco SALDIVAR, Orlando Dangelo Primary Care Physician [place] [facility] [place] 10/14/19 - 10/21/[address] [address]- [facility] Attending Physician: Not on Staff, Attending MD Allergies, Adverse Reactions, Alerts Substance Reaction Severity Status NKA Active Medications acetaminophen 650 mg oral tablet, extended release 2 tablet = 1,300 mg, By Mouth, Every 8 hours, PRN as needed for fever, # 24 tablet, 0 Refills, Maintenance, 07/29/18 16:43:47 EST, ER Tablet Start Date: 07/29/18 Status: OrderedBactrim DS 800 mg-160 mg oral tablet 2 tablet, By Mouth, 2 times a day, # 28 tablet, 0 Refills Start Date: 12/01/08 Stop Date: 12/08/08 Status: OrderedColace sodium 100 mg oral capsule 100 mg, 1, capsule, By Mouth, 2 times a day, PRN, # 60 capsule, Refills 0, Tot. Refills 0, Maintenance, for constipation, 07/29/18 22:32:19 EST, Print Requisition Start Date: 07/29/18 Status: Orderedcyclobenzaprine 10 mg oral tablet 10 mg, 1, tablet, By Mouth, 3 times a day, PRN, # 30 tablet, Refills 0, Maintenance, for spasm, 07/29/18 16:42:52 EST Start Date: 07/29/18 Status: OrderedFlintstones Complete 1, tablet, Daily, 0, 0, 11/13/06 11:05:06, Print LAINEY Number, [id number], Constant Indicator Start Date: 11/13/06 Status: OrderedGabapentin By Mouth, 0 Refills, Maintenance, 07/29/18 16:43:01 EST Start Date: 07/29/18 Status: OrderedKeflex monohydrate 500 mg oral capsule = 500 mg, By Mouth, 4 times a day, # 28 capsule, 0 Refills Start Date: 12/01/08 Stop Date: 12/08/08 Status: OrderedNIFEdipine Capsule 10, mg, By Mouth, Every 4 hours, Scheduled / PRN, 20, 0, 0, 11/13/06 10:46:12, ucs more than 6 per hour, ADS OPPT, [address] [place] [address], 51 Start Date: 11/13/06 Status: OrderedNuvaRing 0.015 mg-0.120 mg vaginal ring 1 each, Vaginally, Every week, # 3 each, 3 Refills, Maintenance, 07/30/18 6:20:07 EST Start Date: 07/30/18 Status: OrderedPrenatal Multivitamins with Folic Acid 1 mg oral tablet 1 tablet, By Mouth, Daily, # 90 tablet, 2 Refills, Maintenance, 10/13/19 13:57:00 EDT, Tablet, [id number], 1 tablet By Mouth Daily, 178, cm, 07/30/18 4:27:00 EST, Height Start Date: 10/13/19 Status: OrderedTylox 500 mg-5 mg oral capsule 1 capsule, By Mouth, Every 6 hours, # 15 capsule, 0 Refills Start Date: 12/01/08 Stop Date: 12/08/08 Status: OrderedZolpidem Tablet 10, mg, By Mouth, Daily at bedtime, Scheduled / PRN, 5, 0, 0, 11/13/06 10:47:15, Sleep, Print LAINEY Number, ADS OPPTHS, 144 Start Date: 11/13/06 Status: Ordered Problem List Condition Effective Dates Status Health Status Informant Arthritis(Confirmed) Active Fibromyalgia(Confirmed) Active History of (Confirmed) Active History of ectopic Active (Confirmed) Social History Social History Type Response Smoking Status Never (less than 100 in life time) entered on: 07/29/18 Sex Female
--- OUTSIDE RECORDS SUMMARY | 2022-04-02 00:26 | XMS_ITS | Continuity of Care Document ---
:1985 Author Organization [facility] Address [address] [place] [address]- Care Team Providers Name Role Phone Marco SALDIVAR, Orlando Dangelo Primary Care Physician [place] [facility] [place]s): 10/28/19 - 01/10/20 [facility] [address] [place] [address]- [facility] Attending Physician: Rafa Nixon MD Admitting Physician: Hussain ELIZABTEH, Rafa Referring Physician: Geovany Morton MD Allergies, Adverse Reactions, Alerts Substance Reaction [...] 0 Refills, Maintenance, 10/30/19 11:59:00 EDT, Tablet, [facility]/pharmacy #[id number], 178, cm, 10/27/19 13:06:00 EDT, Height, 70.5, kg, 10/27/19 23:53:00 EDT, Dry Weight Start Date: 10/30/19 Status: OrderedVitamin B6 50 mg oral tablet See Instructions, TAKE 1 TABLET BY MOUTH EVERY DAY, # 30 tablet, Refills 0, Acute, Instructions Replace Required Details, Route to Pharmacy Electronically, [id number], 178, cm, 10/27/19 13:06:00 EDT, Height, 70.5, kg, 10/27/19 23:53:00 EDT, Dry W... Start Date: 11/13/19 Status: OrderedZofran 4 mg oral tablet 1 tablet = 4 mg, By Mouth, Every 8 hours, PRN as needed for nausea/vomiting, # 15 tablet, 1 Refills,Maintenance, 11/25/19 14:31:00 EDT, Tablet, [facility]/pharmacy #[id number], 178, cm, 11/25/19 14:10:00 [...] years ago; follows up with primary care [id number] added by Discern Expert Social History Social History Type Response Smoking Status Former smoker, quit more [place] 30 days ago entered on: 10/27/19 Sex Female
--- OUTSIDE RECORDS SUMMARY | 2022-04-02 00:26 | XMS_ITS | Continuity of Care Document ---
:1985 Author Organization [facility] Address [address] [place] [address]- Care Team Providers Name Role Phone Marco SALDIVAR, Orlando Dangelo Primary Care Physician Encounter [facility] Date(s): 02/08/22 - 03/10/[address] [address]- Allergies, Adverse Reactions, Alerts No Known Allergies [...] 0 Refills, Maintenance, 02/21/22 6:48:00 EDT, Suppository, [facility]/pharmacy #[id number], Partial fill upon patient [...] Route to Pharmacy Electronically, [facility]/pharmacy #[id number], Partial fill upon patient [...] Refills,Maintenance, 11/17/21 0:13:00 EDT, DIS Tablet, [facility]/pharmacy #[id number], Partial fill upon patient requestif the prescription is for a schedule II opioid d... Start Date: 11/17/21 Status: OrderedPrenatal Multivitamins with Folic Acid 1 mg oral tablet 1 tablet, By Mouth, Daily, # 90 tablet, 3 Refills, Maintenance, 08/10/21 9:21:00 EST, Tablet, [facility]/pharmacy #[id number], Partial fill upon patient request if the prescription is for a schedule II opioid drug., 1 tablet By Mouth Daily, 178, cm, 07/20/21 19:29... Start Date: 08/10/21 Status: OrderedPrenatal Plus Iron oral tablet 1 tablet, By Mouth, Daily, # 90 tablet, 3 Refills, Maintenance, 11/22/20 16:41:00 EDT, Tablet, [facility]/pharmacy #[id number], Partial fill upon patient [...] Route to Pharmacy Electronically, [facility]/pharmacy #[id number], Partial fill upon patient request if the [...] taking prior to . Feels stable. 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 Pt informed of [facility] services and declined at time of OBI visit. Social History Social History Type Response Smoking Status Former smoker, quit more [place] 30 days ago; Other: stopped with ; entered on: 08/10/21 Sex Female Care Team PersonnelName: Marco SALDIVAR , Orlando Dangelo Address: [address] [place] [id number]
--- OUTSIDE RECORDS SUMMARY | 2022-04-02 00:26 | XMS_ITS | Continuity of Care Document ---
:1985 Author Organization [facility] ic Address [address] [place] [address]- Care Team Providers Name Role Phone Marco SALDIVAR, Orlando Dangelo Primary Care Physician [place] [facility] [place] Date(s): 08/02/21 - 09/01/[address] [address]- Allergies, Adverse Reactions, Alerts No Known Allergies [...] 3 Refills, Maintenance, 08/10/21 9:21:00 EST, Tablet, [facility]/pharmacy #[id number], Partial fill upon patient request if the prescription is for a schedule II opioid drug., 1 tablet By Mouth Daily, 178lata, 07/20/21 19:29... Start Date: 08/10/21 Status: OrderedPrenatal Plus Iron oral tablet 1 tablet, By Mouth, Daily, # 90 tablet, 3 Refills, Maintenance, 11/22/20 16:41:00 EDT, Tablet, [facility]/pharmacy #[id number], Partial fill upon patient request if the prescription is for a schedule II opioid drug., 1 tablet By Mouth Daily, 178lata, 10/25/20 13:3... Start Date: 11/22/20 Status: Orderedpyridoxine 25 mg oral tablet 1 tablet = 25 mg, By Mouth, 3 times a day, PRN Nausea & Vomiting, # 60 tablet, 3 Refills, Maintenance, 12/17/20 16:55:00 EDT, [facility]/pharmacy #[id number], Partial fill upon patient request if the prescription is for a schedule II opioid drug., 178, cm, ... Start Date: 12/17/20 Status: OrderedTums 500 mg oral tablet, chewable 500 mg, 1, tablet, Chew, 2 times a day, # 100 tablet, Refills 0, Tot. Refills 0, Maintenance, 08/23/21 19:02:00 EST, Route to Pharmacy Electronically, [facility]/pharmacy #[id number], Partial fill upon patient request if the prescription is for a schedule II opioi... Start Date: 08/23/21 Status: OrderedZofran 4 mg oral tablet 1 tablet = 4 mg, By Mouth, 3 times a day, PRN Nausea, # 30 tablet, 2 Refills, Maintenance, 08/02/21 20:34:00 EST, [facility]/pharmacy #[id number], Partial fill upon patient request [...] taking prior to . Feels stable. Declines [id number] by PCP - not currently on [id number] treated about 2 years ago; follows up with primary care [id number] reports she has not been vaccinated against Covid-19 and does not plan to at the OBI visit.5Patient reports she is being monitored by PCP, states her level was high and she was being monitoredbut has not been prescribed and is not taking any medications.6 Patient states being monitored for blood pressure with PCP but does not have diagnosis of HTN. 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 Pt informed of [facility] services and declined at time of OBI visit. Social History Social History Type Response Smoking Status Former smoker, quit more [place] n 30 days ago; Other: stopped with ; entered on: 08/10/21 Sex Female
--- OUTSIDE RECORDS SUMMARY | 2022-04-02 00:26 | XMS_ITS | Continuity of Care Document ---
:1985 Author Organization [facility] ic Address [address] [place] [address]- Care Team Providers Name Role Phone Marco SALDIVAR, Orlando Dangelo Primary Care Physician Encounter [facility] [place] Date(s): 01/27/20 - 03/03/20 [facility] [address] [address]- [facility] Attending Physician: Debbi Garcia MD Admitting Physician: [...] 0 Refills, Maintenance, 10/30/19 11:59:00 EDT, Tablet, [facility]/pharmacy #[id number], 178, cm, 10/27/19 13:06:00 EDT, Height, 70.5, kg, 10/27/19 23:53:00 EDT, Dry Weight Start Date: 10/30/19 Status: OrderedVitamin B6 50 mg oral tablet See Instructions, TAKE 1 TABLET BY MOUTH EVERY DAY, # 30 tablet, Refills 0, Acute, Instructions Replace Required Details, Route to Pharmacy Electronically, [id number], 178, cm, 10/27/19 13:06:00 EDT, Height, 70.5, kg, 10/27/19 23:53:00 EDT, Dry W... Start Date: 11/13/19 Status: OrderedZofran 4 mg oral tablet 1 tablet = 4 mg, By Mouth, Every 8 hours, PRN as needed for nausea/vomiting, # 15 tablet, 1 Refills,Maintenance, 11/25/19 14:31:00 EDT, Tablet, [facility]/pharmacy #[id number], 178, cm, 11/25/19 14:10:00 [...]
--- OUTSIDE RECORDS SUMMARY | 2022-04-02 00:26 | XMS_ITS | Continuity of Care Document ---
:1985 Author Organization [facility] ic Address [address] [place] [address]- Care Team Providers Name Role Phone Marco SALDIVAR, Orlando Dangelo Primary Care Physician Encounter [facility] Date(s): 07/12/21 - 08/13/[address] [address]- Attending Physician: Not on Staff, Attending MD [...] II opioid drug. Start Date: 12/17/20 Status: OrderedmetroNIDAZOLE 500 mg oral tablet 1 tablet = 500 mg, By Mouth, Every 12 hours, for 7 days, # 14 tablet, 0 Refills, Acute 08/18/21 15:15:00 EST, 08/11/21 15:15:00 EST, Tablet, [id number], Partial fill upon patient request if theprescription is for a schedule II opioid drug., 1... Start Date: 08/11/21 Stop Date: 08/18/21 Status: OrderedPrenatal Multivitamins with Folic Acid 1 [...] tablet, 3 Refills, Maintenance, 12/17/20 16:55:00 EDT, [facility]/pharmacy #[id number], Partial fill upon patient request if the prescription is for a schedule II opioid drug., 178lata, ... Start Date: 12/17/20 Status: OrderedZofran 4 mg oral tablet 1 tablet = 4 mg, By Mouth, 3 times a day, PRN Nausea, # 30 tablet, 2 Refills, Maintenance, 08/02/21 20:34:00 EST, [facility]/pharmacy #[id number], Partial fill upon patient request if the prescription is for a schedule II opioid drug., lata Delaney, 07/20/21 19:29:00 E... 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 Feels stable. Declines [id number] by PCP - not currently on xrho9ddmt treated about 2 years ago; follows up with primary care vnwamlusv8Nk reports she has not been vaccinated against Covid-19 and does not plan to at the OBI visit.5Patient reports she is being monitored by PCP, states her level was high and she was being monitoredbut has not been prescribed and is not taking any medications.6 Patient states being monitored for blood pressure with PCP but does not have diagnosis of HTN. 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 Pt informed of [facility] services and declined at time of OBI visit. Social History Social History Type Response Smoking Status Former smoker, quit more jersey n 30 days ago; Other: stopped with ; entered on: 08/10/21 Sex Female
--- OUTSIDE RECORDS SUMMARY | 2022-04-02 00:26 | XMS_ITS | Continuity of Care Document ---
:1985 [facility] Address [address] [place] [address]- Care Team Providers Name Role Phone Marco SALDIVAR, Orlando Dangelo Primary Care Physician Encounter [facility] Date(s): 08/03/21 - 09/02/21 [facility] [address] [id number] Allergies, Adverse Reactions, Alerts No Known [...] 3 Refills, Maintenance, 08/10/21 9:21:00 EST, Tablet, [facility]/pharmacy #[id number], Partial fill upon patient request if the prescription is for a schedule II opioid drug., 1 tablet By Mouth Daily, lata Delaney, 07/20/21 19:29... Start Date: 08/10/21 Status: OrderedPrenatal Plus Iron oral tablet 1 tablet, By Mouth, Daily, # 90 tablet, 3 Refills, Maintenance, 11/22/20 16:41:00 EDT, Tablet, [facility]/pharmacy #[id number], Partial fill upon patient request if the prescription is for a schedule II opioid drug., 1 tablet By Mouth Daily, lata Delaney, 10/25/20 13:3... Start Date: 11/22/20 Status: Orderedpyridoxine 25 mg oral tablet 1 tablet = 25 mg, By Mouth, 3 times a day, PRN Nausea & Vomiting, # 60 tablet, 3 Refills, Maintenance, 12/17/20 16:55:00 EDT, [facility]/pharmacy #[id number], Partial fill upon patient request if the prescription is for a schedule II opioid drug., 178lata, ... Start Date: 12/17/20 Status: OrderedTums 500 mg oral tablet, chewable 500 mg, 1, tablet, Chew, 2 times a day, # 100 tablet, Refills 0, Tot. Refills 0, Maintenance, 08/23/21 19:02:00 EST, Route to Pharmacy Electronically, [facility]/pharmacy #[id number], Partial fill upon patient request if the prescription is for a schedule II opioi... Start Date: 08/23/21 Status: OrderedZofran 4 mg oral tablet 1 tablet = 4 mg, By Mouth, 3 times a day, PRN Nausea, # 30 tablet, 2 Refills, Maintenance, 08/02/21 20:34:00 EST, [facility]/pharmacy #[id number], Partial fill upon patient request if [...] taking prior to . Feels stable. Declines [id number] by PCP - not currently on dbfp7dzzb treated about 2 years ago; follows up with primary care ssbvizaqm5Tl reports she has not been vaccinated against Covid-19 and does not plan to at the OBI visit.5Patient reports she is being monitored by PCP, states her level was high and she was being monitoredbut has not been prescribed and is not taking any medications.6 Patient states being monitored for blood pressure with PCP but does not have diagnosis of HTN. 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 Pt informed of [facility] services and declined at time of OBI visit. Social History Social History Type Response Smoking Status Former smoker, quit more jersey n 30 days ago; Other: stopped with ; entered on: 08/10/21 Sex Female
--- OUTSIDE RECORDS SUMMARY | 2022-04-02 00:26 | XMS_ITS | Continuity of Care Document ---
:1985 Author Organization [facility] ic Address [address] [place] [address]- Care Team Providers Name Role Phone Marco SALDIVAR, Orlando Dangelo Primary Care Physician [place] [facility] [place]): 02/10/20 - 03/18/20 [facility] [address] [address]- [facility] Attending Physician: Not on Staff, Attending MD [...] 0 Refills, Maintenance, 10/30/19 11:59:00 EDT, Tablet, [facility]/pharmacy #[id number], 178, cm, 10/27/19 13:06:00 EDT, Height, 70.5, kg, 10/27/19 23:53:00 EDT, Dry Weight Start Date: 10/30/19 Status: OrderedVitamin B6 50 mg oral tablet See Instructions, TAKE 1 TABLET BY MOUTH EVERY DAY, # 30 tablet, Refills 0, Acute, Instructions Replace Required Details, Route to Pharmacy Electronically, [id number], 178, cm, 10/27/19 13:06:00 EDT, Height, 70.5, kg, 10/27/19 23:53:00 EDT, Dry W... Start Date: 11/13/19 Status: OrderedZofran 4 mg oral tablet 1 tablet = 4 mg, By Mouth, Every 8 hours, PRN as needed for nausea/vomiting, # 15 tablet, 1 Refills,Maintenance, 11/25/19 14:31:00 EDT, Tablet, [facility]/pharmacy #[id number], 178, cm, 11/25/19 14:10:00 EDT, Height, [...]
--- OUTSIDE RECORDS SUMMARY | 2022-04-02 00:27 | XMS_ITS | Continuity of Care Document ---
:1985 Author Organization [facility] Address [address] [place] [address]- Care Team Providers Name Role Phone Marco SALDIVAR, Orlando Dangelo Primary Care Physician En[place] [facility] Date(s): 12/26/21 - 03/12/[address] [address]- Attending Physician: Roland Medina MD Referring Physician: Roland Medina MD Allergies, Adverse Reactions, Alerts No Known [...] 0 Refills, Maintenance, 02/21/22 6:48:00 EDT, Suppository, [facility]/pharmacy #[id number], Partial fill upon patient request if [...] EDT, Route to Pharmacy Electronically, [facility]/pharmacy #[id number], Partial fill upon patient request if [...] 0 Refills,Maintenance, 11/17/21 0:13:00 EDT, DIS Tablet, [facility]/pharmacy #[id number], Partial fill upon patient requestif the prescription is for a schedule II opioid d... Start Date: 11/17/21 Status: OrderedPrenatal Multivitamins with Folic Acid 1 mg oral tablet 1 tablet, By Mouth, Daily, # 90 tablet, 3 Refills, Maintenance, 08/10/21 9:21:00 EST, Tablet, [facility]/pharmacy #[id number], Partial fill upon patient request if the prescription is for a schedule II opioid drug., 1 tablet By Mouth Daily, 178, cm, 07/20/21 19:29... Start Date: 08/10/21 Status: OrderedPrenatal Plus Iron oral tablet 1 tablet, By Mouth, Daily, # 90 tablet, 3 Refills, Maintenance, 11/22/20 16:41:00 EDT, Tablet, [facility]/pharmacy #[id number], Partial fill upon patient request if the prescription is for a schedule II opioid drug., 1 tablet By Mouth Daily, 178, cm, 10/25/20 13:3... Start Date: 11/22/20 Status: Orderedsimethicone 80 mg oral tablet, chewable 80 mg, Chew, 3 times a day, PRN, # 90 tablet, Refills 0, Tot. Refills 0, Maintenance, Gas, 02/21/22 6:48:00 EDT, Route to Pharmacy Electronically, [facility]/pharmacy #[id number], Partial fill upon patient request if the [...] taking prior to . Feels stable. 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 Pt informed of [facility] services and declined at time of OBI visit. Social History Social History Type Response Smoking Status Former smoker, quit more jersey n 30 days ago; Other: stopped with ; entered on: 08/10/21 Sex Female Care Team PersonnelName: Marco SALDIVAR , Orlando Dangelo Address: [address] [place] [address]-
--- OUTSIDE RECORDS SUMMARY | 2022-04-02 00:27 | XMS_ITS | Continuity of Care Document ---
:1985 Author Organization [facility] ic Address [address] [place] [address]- Care Team Providers Name Role Phone Marco SALDIVAR, Orlando Dangelo Primary Care Physician Encounter [facility] Date(s): 12/23/20 - 01/22/[address] [address]- Allergies, Adverse Reactions, Alerts Substance Reaction Severity Status NKA Active Medications doxylamine 25 mg oral tablet 1 tablet = 25 mg, By Mouth, Daily at bedtime, Take one tablet before bed. May take additional tabletin the morning if nausea still persistent, # 60 tablet, 3 Refills, Maintenance, 12/17/20 16:55:00 EDT, [facility]/pharmacy #[id number], Partial fill upon patient r... 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 Pt informed of [facility] services and declined at time of OBI visit. Social History Social History Type Response Tobacco Use: 4 or less cigarettes(le ss than 1/4 pack)/day in last 30 days. Sex Female
--- OUTSIDE RECORDS SUMMARY | 2022-04-02 00:27 | XMS_ITS | Continuity of Care Document ---
:1985 Author Organization [facility] Address [address] [place] [address]- Care Team Providers Name Role Phone Marco SALDIVAR, Orlando Dangelo Primary Care Physician En[place] [facility] Date(s): 08/15/21 - 09/14/21 [facility] [address] [address]- Allergies, Adverse Reactions, Alerts No Known Allergies Medications doxylamine 25 mg oral tablet 1 tablet = 25 mg, By Mouth, Daily at bedtime, Take one tablet before bed. May take additional tabletin the morning if nausea still persistent, # 60 tablet, 3 Refills, Maintenance, 12/17/20 16:55:00 EDT, [facility]/pharmacy #[id number], Partial fill upon patient r... Start [...] Maintenance, 08/10/21 9:21:00 EST, Tablet, [facility]/pharmacy #[id number], Partial fill upon patient request if the prescription is for a schedule II opioid drug., 1 tablet By Mouth Daily, lata Delaney, 07/20/21 19:29... Start Date: 08/10/21 Status: OrderedPrenatal Plus Iron oral tablet 1 tablet, By Mouth, Daily, # 90 tablet, 3 Refills, Maintenance, 11/22/20 16:41:00 EDT, Tablet, [facility]/pharmacy #[id number], Partial fill upon patient request if the prescription is for a schedule II opioid drug., 1 tablet By Mouth Daily, lata Delaney, 10/25/20 13:3... Start Date: 11/22/20 Status: Orderedpyridoxine 25 mg oral tablet 1 tablet = 25 mg, By Mouth, 3 times a day, PRN Nausea & Vomiting, # 60 tablet, 3 Refills, Maintenance, 12/17/20 16:55:00 EDT, [facility]/pharmacy #[id number], Partial fill upon patient request if the prescription is for a schedule II opioid drug., lata Delaney, ... Start Date: 12/17/20 Status: OrderedTums 500 mg oral tablet, chewable 500 mg, 1, tablet, Chew, 2 times a day, # 100 tablet, Refills 0, Tot. Refills 0, Maintenance, 08/23/21 19:02:00 EST, Route to Pharmacy Electronically, [facility]/pharmacy #[id number], Partial fill upon patient request if the prescription is for a schedule II opioi... Start Date: 08/23/21 Status: OrderedZofran 4 mg oral tablet 1 tablet = 4 mg, By Mouth, 3 times a day, PRN Nausea, # 30 tablet, 2 Refills, Maintenance, 08/02/21 20:34:00 EST, [facility]/pharmacy #[id number], Partial fill upon patient request if the prescription is for a schedule II opioid drug.Elaina cm, 07/20/21 19:29:00 E... Start Date: 08/02/21 [...] taking prior to . Feels stable. Declines CZX6Scwkbqk by PCP - not currently on yzmu8yyjc treated about 2 years ago; follows up with primary care futwwaqmm9Wn reports she has not been vaccinated against Covid-19 and does not plan to at the OBI visit.5Patient reports she is being monitored by PCP, states her level was high and she was being monitoredbut has not been prescribed and is not taking any medications.6 Patient states being monitored for blood pressure with PCP but does not have diagnosis of HTN. 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 Pt informed of [facility] services and declined at time of OBI visit. Social History Social History Type Response Smoking Status Former smoker, quit more [place] n 30 days ago; Other: stopped with ; entered on: 08/10/21 Sex Female
--- OUTSIDE RECORDS SUMMARY | 2022-04-02 00:27 | XMS_ITS | Continuity of Care Document ---
:1985 Author Organization [facility] Address [address] [place] [address]- Care Team Providers Name Role Phone Marco SALDIVAR, Orlando Dangelo Primary Care Physician Encounter [facility] Date(s): 02/10/22 - 03/12/[address] [address]- Allergies, Adverse Reactions, Alerts No Known Allergies [...] 0 Refills, Maintenance, 02/21/22 6:48:00 EDT, Suppository, [facility]/pharmacy #[id number], Partial fill upon patient [...] EDT, Route to Pharmacy Electronically, [facility]/pharmacy #[id number], Partial fill upon patient request if the [...] taking prior to . Feels stable. 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 Pt informed of [facility] services and declined at time of OBI visit. Social History Social History Type Response Smoking Status Former smoker, quit more jersey n 30 days ago; Other: stopped with ; entered on: 08/10/21 Sex Female Care Team PersonnelName: Marco SALDIVAR , Orlando Dangelo Address: [address] [place] [id number]
--- OUTSIDE RECORDS SUMMARY | 2022-04-02 00:27 | XMS_ITS | Continuity of Care Document ---
:1985 Author Organization [facility] ic Address [address] [place] [address]- Care Team Providers Name Role Phone Marco SALDIVAR, Orlando Dangelo Primary Care Physician Encounter [facility] Date(s): 12/17/20 - 03/17/[address] [address]- Attending Physician: Not on Staff, Attending MD [...] 3 Refills, Maintenance, 12/17/20 16:55:00 EDT, [id number], Partial fill upon patient request if the [...] 1Managed by PCP - not currently on temy9lslb treated about 2 years ago; follows up with primary care xfiasppnl6Yb reports she has not been vaccinated against Covid-19 and does not plan to at the OBI visit.4Managed by PCP - not currently on meds.5Pt signed medical release requesting 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 Pt informed of [facility] services and declined at time of OBI visit. Social History Social History Type Response Tobacco Use: 4 or less cigarettes(le ss than 1/4 pack)/day in last 30 days. Sex Female
--- OUTSIDE RECORDS SUMMARY | 2022-04-02 00:27 | XMS_ITS | Continuity of Care Document ---
:1985 Author Organization [facility] Address [address] [place] [address]- Care Team Providers Name Role Phone Marco SALDIVAR, Orlando Dangelo Primary Care Physician Encounter [facility] Date(s): 02/08/22 - 03/10/22 [facility] [address] [address] Allergies, Adverse Reactions, Alerts No [...] 02/21/22 6:48:00 EDT, [id number] Partial fill upon patient request if [...] Refills,Maintenance, 11/17/21 0:13:00 EDT, DIS Tablet, [facility]/pharmacy #[id number], Partial fill upon patient requestif the prescription is for a schedule II opioid d... Start Date: 11/17/21 Status: OrderedPrenatal Multivitamins with Folic Acid 1 mg oral tablet 1 tablet, By Mouth, Daily, # 90 tablet, 3 Refills, Maintenance, 08/10/21 9:21:00 EST, Tablet, [facility]/pharmacy #[id number], Partial fill upon patient request if the prescription is for a schedule II opioid drug., 1 tablet By Mouth Daily, 178, cm, 07/20/21 19:29... Start Date: 08/10/21 Status: OrderedPrenatal Plus Iron oral tablet 1 tablet, By Mouth, Daily, # 90 tablet, 3 Refills, Maintenance, 11/22/20 16:41:00 EDT, Tablet, [facility]/pharmacy #[id number], Partial fill upon patient request if the prescription is for a schedule II opioid drug., 1 tablet By Mouth Daily, 178, cm, 10/25/20 13:3... Start Date: 11/22/20 Status: Orderedsimethicone 80 mg oral tablet, chewable 80 mg, Chew, 3 times a day, PRN, # 90 tablet, Refills 0, Tot. Refills 0, Maintenance, Gas, 02/21/22 6:48:00 EDT, Route to Pharmacy Electronically, [facility]/pharmacy #[id number], Partial fill upon patient request if the [...] taking prior to . Feels stable. 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 Pt informed of [facility] services and declined at time of OBI visit. Social History Social History Type Response Smoking Status Former smoker, quit more [place] 30 days ago; Other: stopped with ; entered on: 08/10/21 Sex Female Care Team PersonnelName: Marco SALDIVAR , Orlando Dangelo Address: [address] [place] [phone]
--- OUTSIDE RECORDS SUMMARY | 2022-04-02 00:27 | XMS_ITS | Continuity of Care Document ---
:1985 Author Organization [facility] Address [address] [place] [address]- Care Team Providers Name Role Phone Marco SALDIVAR, Orlando Dangelo Primary Care Physician Encounter [facility] Date(s): 10/27/19 - 10/28/[address] [address]- [facility] Discharge Disposition: A-D/C Home Attending Physician: Ashwini Fowler MD Admitting Physician: Ashwini Fowler MD Referring Physician: Ashwini Fowler MD Allergies, Adverse Reactions, Alerts Substance Reaction Severity Status NKA Active Medications Augmentin 875 mg-125 mg oral tablet 1 tablet, By Mouth, Every 12 hours, for 7 days, # 14 tablet, 0 Refills, Acute 11/04/19 10:08:00 EDT,10/28/19 10:08:00 EDT, Tablet, [id number], 178, cm, 10/27/19 13:06:00 EDT, Height, 70.5, kg,10/27/19 23:53:00 EDT, Dry Weight Start Date: 10/28/19 Stop Date: 11/04/19 Status: OrderedColace sodium 100 mg oral capsule 100 mg, 1, capsule, By Mouth, 2 times a day, PRN, # 60 capsule, Refills 0, Tot. Refills 0, Maintenance, for constipation, 07/29/18 22:32:19 EST, Print Requisition Start Date: 07/29/18 Status: Ordereddoxylamine 25 mg oral tablet 1 tablet = 25 mg, By Mouth, Daily at bedtime, # 32 tablet, 0 Refills, Maintenance, 10/23/19 17:45:00EDT, Tablet, [id number], 178, cm, 07/30/18 4:27:00 EST, Height Start Date: 10/23/19 Status: Orderedondansetron 4 mg oral tablet, disintegrating 1 tablet = 4 mg, By Mouth, Every 8 hours, PRN as needed for nausea/vomiting, # 5 tablet, 0 Refills, Maintenance, 10/28/19 2:40:00 EDT, DIS Tablet, [facility]/pharmacy #[id number], 178, cm, 10/27/19 13:06:00 EDT, Height, 70.5, kg, 10/27/19 23:53:00 EDT, Dry Weight Start Date: 10/28/19 Status: OrderedPrenatal Multivitamins with Folic Acid 1 mg oral tablet 1 tablet, By Mouth, Daily, # 90 tablet, 2 Refills, Maintenance, 10/13/19 13:57:00 EDT, Tablet, [facility]/pharmacy #[id number], 1 tablet By Mouth Daily, 178, cm, 07/30/18 4:27:00 EST, Height Start Date: 10/13/19 Status: OrderedVitamin B6 50 mg oral tablet 50 mg, 1, tablet, By Mouth, Daily, for 14 days, # 30 tablet, Refills 0, Tot. Refills 0, Acute 11/06/19 17:46:00 EDT, 10/23/19 17:46:00 EDT, Route to Pharmacy Electronically, [facility]/pharmacy #[id number], 178, cm, 07/30/18 4:27:00 EST, Height Start Date: 10/23/19 Stop Date: 11/06/19 Status: Ordered Problem List Condition Effective Dates Status Health Status Informant Arthritis(Confirmed) Active Chronic bipolar disorder(Confirmed)1 Active Fibromyalgia(Confirmed) Active History of (Confirmed) Active History of ectopic Active (Confirmed) History of abnormal cervical Pap Active smear(Confirmed) Hyperemesis gravidarum(Confirmed)2 10/28/19 Active 1last treated about 2 years ago; follows up with primary care [id number] added by Discern Expert Vital Signs Most recent to oldest [Reference Range]: 1 Weight 70.5 kg (10/27/19 11:53 PM) Oxygen Saturation [94-100 %] 100 % (10/27/19 11:50 PM) Pulse Rate [55-90 bpm] 70 bpm (10/27/19 11:50 PM) Blood Pressure [90-138/55-84 mm Hg] 117/74 mm Hg (10/27/19 11:50 PM) Respiratory Rate [16-30 br/min] 18 br/min (10/27/19 11:50 PM) Temperature [96.8-100.4 DegF] 98.5 DegF (10/27/19 11:50 PM) Mode of Delivery (Oxygen) Room air (10/27/19 11:50 PM) Blood pressure sites Arm, right (10/27/19 11:50 PM) Temperature Route Oral (10/27/19 11:50 PM) Dry Weight 70.5 kg (10/27/19 11:53 PM) Weight Obtained Via Standing scale (10/27/19 11:53 PM) Dry Weight Obtained Via Standing scale (10/27/19 11:53 PM) Social History Social History Type Response Smoking Status Former smoker, quit more [place] 30 days ago entered on: 10/27/19 Sex Female
--- OUTSIDE RECORDS SUMMARY | 2022-04-02 00:27 | XMS_ITS | Continuity of Care Document ---
:1985 Author Organization [facility] ic Address [address] [place] [address]- Care Team Providers Name Role Phone Marco SALDIVAR, Orlando Dangelo Primary Care Physician Encounter [facility] Date(s): 01/09/22 - 02/08/[address] [address] Allergies, Adverse Reactions, Alerts No Known Allergies Immunizations Given and Recorded Vaccine Date Status Refusal Reason tetanus/diphtheria/pertussis, acel(Tdap) 12/19/21 Given Medications cyclobenzaprine 10 mg oral tablet 10 mg, 1, tablet, By Mouth, 3 times a day, # 20 tablet, Refills 0, Tot. Refills 0, Maintenance, 12/19/21 14:49:00 EDT, Route to Pharmacy Electronically, [facility]/pharmacy #[id number], Partial fill upon [...] tablet, 0 Refills, Maintenance, 12/19/21 14:49:00 EDT,Tablet, [facility]/pharmacy #[id number], Partial fill upon patient request if the prescription is for a schedule II opioid drug., 153, cm, 12/19/21 14:30:00 EDT, H... Start Date: 12/19/21 Status: Orderedmetronidazole topical 0.75% gel with applicator 1 applicator, Vaginally, Daily at bedtime, for 5 days, # 70 Gm, 0 Refills, Acute 02/13/22 18:54:00 EDT, 02/08/22 18:54:00 EDT, Gel, [facility]/pharmacy #[id number], Partial fill upon patient request if the prescription is for a schedule II opioid drug., 1 applicat... Start Date: 02/08/22 Stop Date: 02/13/22 Status: Orderedomeprazole 20 mg oral enteric coated capsule 1 capsule, By Mouth, Daily at bedtime, # 30 capsule, 0 Refills, [id number], 153, cm, 08/29/21 14:11:00 EST, Height, 75.3, kg, 12/22/20 23:35:00 EDT, Dry Weight Start Date: 09/20/21 Status: Orderedondansetron 4 mg oral tablet, disintegrating 1 tablet = 4 mg, By Mouth, Every 8 hours, PRN as needed for nausea/vomiting, # 10 tablet, 0 Refills,Maintenance, 11/17/21 0:13:00 EDT, DIS Tablet, [facility]/pharmacy #[id number], Partial fill upon patient requestif the prescription is for a schedule II opioid d... Start Date: 11/17/21 Status: OrderedPrenatal Multivitamins with Folic Acid 1 mg oral tablet 1 tablet, By Mouth, Daily, # 90 tablet, 3 Refills, Maintenance, 08/10/21 9:21:00 EST, Tablet, [facility]/pharmacy #[id number], Partial fill upon [...] tablet, 3 Refills, Maintenance, 12/17/20 16:55:00 EDT, [facility]/pharmacy #[id number], Partial fill upon patient request if the prescription is for a schedule II opioid drug., 178, cm, ... Start Date: 12/17/20 Status: OrderedTums 500 mg oral tablet, chewable 500 mg, 1, tablet, Chew, 2 times a day, # 100 tablet, Refills 0, Tot. Refills 0, Maintenance, 08/23/21 19:02:00 EST, Route to Pharmacy Electronically, [facility]/pharmacy #[id number], Partial fill upon [...] taking prior to . Feels stable. 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 Pt informed of [facility] services and declined at time of OBI visit. Social History Social History Type Response Smoking Status Former smoker, quit more [place] n 30 days ago; Other: stopped with ; entered on: 08/10/21 Sex Female
--- OUTSIDE RECORDS SUMMARY | 2022-04-02 00:27 | XMS_ITS | Continuity of Care Document ---
:1985 Author Organization [facility] Address [address] [place] [address]- Care Team Providers Name Role Phone Marco SALDIVAR, Orlando Dangelo Primary Care Physician Encounter [facility] Date(s): 12/22/20 - 12/29/[address] [address] Encounter Diagnosis Threatened (Final) - Discharge Disposition: A-D/C Home Attending Physician: Ashwini Fowler MD Admitting Physician: Ashwini Fowler MD Allergies, Adverse Reactions, [...] tablet, 3 Refills, Maintenance, 12/17/20 16:55:00 EDT, [facility]/pharmacy #[id number], Partial fill upon patient request if the prescription is for a schedule II opioid drug., 178, cm, ... 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 Pt informed of [facility] services and declined at time of OBI visit. Vital Signs Most recent to oldest [Reference Range]: 1 2 Weight 75.3 kg (12/22/20 11:35 PM) Oxygen Saturation [94-100 %] 100 % (12/22/20 11:35 PM) Blood Pressure [90-138/55-84 mm Hg] 116/64 mm Hg (6/23/21 11:35 PM) Respiratory Rate [16-30 br/min] 16 br/min 16 br/mi n (12/23/20 3:32 AM) (12/22/20 11:35 PM) Temperature [96.8-100.4 DegF] 98.2 DegF (12/22/20 11:35 PM) Mode of Delivery (Oxygen) Room air (12/22/20 11:35 PM) Blood pressure sites Arm, left (12/22/20 11:35 PM) Temperature Route Oral (12/22/20 11:35 PM) Dry Weight 75.3 kg (12/22/20 11:35 PM) Weight Obtained Via Standing scale (12/22/20 11:35 PM) Social History Social History Type Response Tobacco Use: 4 or less cigarettes(le ss than 1/4 pack)/day in last 30 days. Sex Female
--- OUTSIDE RECORDS SUMMARY | 2022-04-02 00:27 | XMS_ITS | Continuity of Care Document ---
:1985 Author Organization [facility] ic Address [address] [place] [address]- Care Team Providers Name Role Phone Marco SALDIVAR, Orlando Dangelo Primary Care Physician Encounter [facility] Date(s): 04/02/20 - 05/02/[address] [address]- [facility] Allergies, Adverse Reactions, Alerts Substance Reaction Severity [...]
--- OUTSIDE RECORDS SUMMARY | 2022-04-02 00:27 | XMS_ITS | Continuity of Care Document ---
:1985 Author Organization [facility] ic Address [address] [place] [address]- Care Team Providers Name Role Phone Marco SALDIVAR, Orlando Dangelo Primary Care Physician Encounter [facility] Date(s): 12/04/19 - 02/18/20 [facility] [address] [address]- [facility] Attending Physician: Not on Staff, [...] 0 Refills, Maintenance, 10/30/19 11:59:00 EDT, Tablet, [facility]/pharmacy #[id number], 178, cm, 10/27/19 13:06:00 EDT, Height, 70.5, kg, 10/27/19 23:53:00 EDT, Dry Weight Start Date: 10/30/19 Status: OrderedVitamin B6 50 mg oral tablet See Instructions, TAKE 1 TABLET BY MOUTH EVERY DAY, # 30 tablet, Refills 0, Acute, Instructions Replace Required Details, Route to Pharmacy Electronically, [id number], 178, cm, 10/27/19 13:06:00 EDT, Height, 70.5, kg, 10/27/19 23:53:00 EDT, Dry W... Start Date: 11/13/19 Status: OrderedZofran 4 mg oral tablet 1 tablet = 4 mg, By Mouth, Every 8 hours, PRN as needed for nausea/vomiting, # 15 tablet, 1 Refills,Maintenance, 11/25/19 14:31:00 EDT, Tablet, [facility]/pharmacy #[id number], 178, cm, 11/25/19 14:10:00 EDT, [...]
--- OUTSIDE RECORDS SUMMARY | 2022-04-02 00:27 | XMS_ITS | Continuity of Care Document ---
:1985 Author Organization [facility] Address [address] [place] [address]- Care Team Providers Name Role Phone Marco SALDIVAR, Orlando Dangelo Primary Care Physician Encounter [facility] Date(s): 03/15/21 - 04/14/[address] [address]- Attending Physician: Lilian Gilmore Admitting Physician: Lilian Gilmore Referring Physician: Lilian Gilmore Allergies, Adverse Reactions, Alerts Substance Reaction Severity [...] tablet, 3 Refills, Maintenance, 12/17/20 16:55:00 EDT, [facility]/pharmacy #[id number], Partial fill upon patient request if the [...] 1Managed by PCP - not currently on [id number] treated about 2 years ago; follows up with primary care [id number] reports she has not been vaccinated against Covid-19 and does not plan to at the OBI visit.4Managed by PCP - not currently on meds.5Pt signed medical release requesting 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 Pt informed of [facility] services and declined at time of OBI visit. Social History Social History Type Response Tobacco Use: 4 or less cigarettes(le ss than 1/4 pack)/day in last 30 days. Sex Female
--- OUTSIDE RECORDS SUMMARY | 2022-04-02 00:27 | XMS_ITS | Continuity of Care Document ---
:1985 Author Organization [facility] ic Address [address] [place] [address]- Care Team Providers Name Role Phone Marco SALDIVAR, Orlando Dangelo Primary Care Physician Encounter [facility] Date(s): 07/15/21 - 08/14/[address] [address]- Allergies, Adverse Reactions, Alerts No Known Allergies [...] a schedule II opioid drug., 178, lata, ... Start Date: 12/17/20 Status: OrderedZofran 4 mg oral tablet 1 tablet = 4 mg, By Mouth, 3 times a day, PRN Nausea, # 30 tablet, 2 Refills, Maintenance, 08/02/21 20:34:00 EST, [id number], Partial fill upon patient request if the prescription is for a schedule II opioid drug., 178lata, 07/20/21 19:29:00 E... Start Date: 08/02/21 Status: [...] taking prior to . Feels stable. Declines [id number] by PCP - not currently on [id number] treated about 2 years ago; follows up with primary care [id number] reports she has not been vaccinated against Covid-19 and does not plan to at the OBI visit.5Patient reports she is being monitored by PCP, states her level was high and she was being monitoredbut has not been prescribed and is not taking any medications.6 Patient states being monitored for blood pressure with PCP but does not have diagnosis of HTN. 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 Pt informed of [facility] services and declined at time of OBI visit. Social History Social History Type Response Smoking Status Former smoker, quit more [place] n 30 days ago; Other: stopped with ; entered on: 08/10/21 Sex Female
--- OUTSIDE RECORDS SUMMARY | 2022-04-02 00:27 | XMS_ITS | Continuity of Care Document ---
:1985 Author Organization [facility] Address [address] [place] [address]- Care Team Providers Name Role Phone Marco SALDIVAR, Orlando Dangelo Primary Care Physician Encounter [facility] Date(s): 12/17/20 - 02/17/[address] [address]- Attending Physician: Not on Staff, Attending MD [...] 3 Refills, Maintenance, 12/17/20 16:55:00 EDT, [id number], Partial fill upon patient request if the [...] 1Managed by PCP - not currently on [id number] treated about 2 years ago; follows up with primary care [id number] reports she has not been vaccinated against Covid-19 and does not plan to at the OBI visit.4Managed by PCP - not currently on meds.5Pt signed medical release requesting 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 Pt informed of [facility] services and declined at time of OBI visit. Social History Social History Type Response Tobacco Use: 4 or less cigarettes(le ss than 1/4 pack)/day in last 30 days. Sex Female
--- OUTSIDE RECORDS SUMMARY | 2022-04-02 00:27 | XMS_ITS | Continuity of Care Document ---
:1985 Author Organization [facility] Address [address] [place] [address], [address] [place] [address]- Care Team Providers Name Role Phone Orlando Lara NP Primary Care Physician [place] [facility] [place] 11/15[place]20 - 11/22/20 [facility] [address] [facility], [address]th Floor [address] [place] [address] Attending Physician: Nicole Chahal MD Referring Physician: Orlando Lara NP Allergies, Adverse Reactions, Alerts Substance Reaction Severity Status NKA Active Medications Diflucan 150 mg oral tablet 1 tablet = 150 mg, By Mouth, Once, # 1 tablet, 0 Refills, Soft Stop, 04/06/20 12:29:00 EDT, [id number], 178, cm, 04/05/20 13:21:00 EDT, Height, 70.5, kg, 10/27/19 23:53:00 EDT, Dry Weight Start Date: 04/06/20 Status: Orderedfluconazole 150 mg oral tablet 1 tablet = 150 mg, By Mouth, Once, # 1 tablet, 0 Refills, Soft Stop, 11/11/20 9:12:00 EDT, Tablet, [id number], Partial fill upon patient request if the prescription is for a schedule II opioid drug., 178, cm, 10/25/20 13:30:00 EDT, Height, 70.... Start Date: 11/11/20 Status: OrderedPrenatal Plus Iron oral tablet 1 [...]
--- OUTSIDE RECORDS SUMMARY | 2022-04-02 00:27 | XMS_ITS | Continuity of Care Document ---
:1985 Author Organization [facility] ic Address [address] [place] [address]- Care Team Providers Name Role Phone Marco SALDIVAR, Orlando Dangelo Primary Care Physician Encounter [facility] [place] Date(s): 10/27/19 - 11/03/[address] [address]- [facility] Attending Physician: Geovany Morton MD Allergies, Adverse Reactions, [...] Refills, Maintenance, 10/28/19 2:40:00 EDT, DIS Tablet, [facility]/pharmacy #[id number], 178, cm, 10/27/19 13:06:00 EDT, Height, 70.5, kg, 10/27/19 23:53:00 EDT, Dry Weight Start Date: 10/28/19 Status: OrderedPrenatal Multivitamins with Folic Acid 1 mg oral tablet 1 tablet, By Mouth, Daily, # 90 tablet, 2 Refills, Maintenance, 10/13/19 13:57:00 EDT, Tablet, [facility]/pharmacy #[id number], 1 tablet By Mouth Daily, 178, cm, 07/30/18 4:27:00 EST, Height Start Date: 10/13/19 Status: Orderedpromethazine 12.5 mg oral tablet 1 tablet = 12.5 mg, By Mouth, Every 4 hours, PRN for nausea/vomiting, # 60 tablet, 0 Refills, Maintenance, 10/30/19 11:59:00 EDT, Tablet, [facility]/pharmacy #1, 178, cm, 10/27/19 13:06:00 EDT, Height, 70.5, kg, 10/27/19 23:53:00 EDT, Dry Weight Start Date: 10/30/19 Status: OrderedVitamin B6 50 mg oral tablet 50 mg, 1, tablet, By Mouth, Daily, for 14 days, # 30 tablet, Refills 0, Tot. Refills 0, Acute 11/06/19 17:46:00 EDT, 10/23/19 17:46:00 EDT, Route to Pharmacy Electronically, [facility]/pharmacy #[id number], 178, cm, 07/30/18 4:27:00 EST, Height Start Date: 10/23/19 Stop Date: 11/06/19 Status: Ordered Problem List Condition Effective Dates Status Health Status Informant Arthritis(Confirmed) Active Chronic bipolar disorder(Confirmed)1 Active Fibromyalgia(Confirmed) Active History of (Confirmed) Active History of ectopic Active (Confirmed) History of abnormal cervical Pap Active smear(Confirmed) Hyperemesis gravidarum(Confirmed)2 10/28/19 Active 1last treated about 2 years ago; follows up with primary care [id number] added by Discern Expert Vital Signs Most recent to oldest [Reference Range]: 1 Height 178 cm (10/27/19 1:06 PM) Social History Social History Type Response Smoking Status Former smoker, quit more [place] 30 days ago entered on: 10/27/19 Sex Female
--- OUTSIDE RECORDS SUMMARY | 2022-04-02 00:27 | XMS_ITS | Continuity of Care Document ---
:1985 Author Organization [facility] Address [address] [place] [address]- Care Team Providers Name Role Phone Marco SALDIVAR, Orlando Dangelo Primary Care Physician Encounter [facility] [place] Date(s): 10/23/19 - 10/23/[address] [address]- [facility] Discharge Disposition: A-D/C Home Attending Physician: Shirley Gonzalez MD Admitting Physician: Shirley Gonzalez MD Referring Physician: Shirley Gonzalez MD Allergies, Adverse Reactions, Alerts Substance Reaction Severity Status NKA Active Medications Bactrim DS 800 mg-160 mg oral tablet 2 [...] tablet, 0 Refills, Maintenance, 10/23/19 17:45:00EDT, Tablet, [facility]/pharmacy #[id number], 178, cm, 07/30/18 4:27:00 EST, Height Start Date: 10/23/19 Status: OrderedKeflex monohydrate 500 mg oral capsule = 500 mg, By Mouth, 4 times a day, # 28 capsule, 0 Refills Start Date: 12/01/08 Stop Date: 12/08/08 Status: OrderedNIFEdipine Capsule 10, mg, By Mouth, Every 4 hours, Scheduled / PRN, 20, 0, 0, 11/13/06 10:46:12, ucs more than 6 per hour, [facility], [address] [place] [address], 51 Start Date: 11/13/06 Status: OrderedNuvaRing 0.015 mg-0.120 mg vaginal ring 1 each, Vaginally, Every week, # 3 each, 3 Refills, Maintenance, 07/30/18 6:20:07 EST Start Date: 07/30/18 Status: Orderedondansetron 4 mg oral tablet, disintegrating 1 tablet = 4 mg, By Mouth, Every 8 hours, PRN as needed for nausea/vomiting, # 5 tablet, 0 Refills, Maintenance, 10/23/19 17:45:00 EDT, DIS Tablet, [facility]/pharmacy #[id number], 178, cm, 07/30/18 4:27:00 EST, Height Start Date: 10/23/19 Status: OrderedPrenatal Multivitamins with Folic Acid 1 mg oral tablet 1 tablet, By Mouth, Daily, # 90 tablet, 2 Refills, Maintenance, 10/13/19 13:57:00 EDT, Tablet, [facility]/pharmacy #[id number], 1 tablet By Mouth Daily, 178, cm, 07/30/18 4:27:00 EST, Height Start Date: 10/13/19 Status: OrderedTylox 500 mg-5 mg oral capsule 1 capsule, By Mouth, Every 6 hours, # 15 capsule, 0 Refills Start Date: 12/01/08 Stop Date: 12/08/08 Status: OrderedVitamin B6 50 mg oral tablet 50 mg, 1, tablet, By Mouth, Daily, for 14 days, # 30 tablet, Refills 0, Tot. Refills 0, Acute 11/06/19 17:46:00 EDT, 10/23/19 17:46:00 EDT, Route to Pharmacy Electronically, [facility]/pharmacy #[id number], 178, cm, 07/30/18 4:27:00 EST, Height Start Date: 10/23/19 Stop Date: 11/06/19 Status: OrderedZolpidem Tablet 10, mg, By Mouth, Daily at bedtime, Scheduled / PRN, 5, 0, 0, 11/13/06 10:47:15, Sleep, Print LAINEY Number, [facility], 144 Start Date: 11/13/06 Status: Ordered Problem List Condition Effective Dates Status Health Status Informant Arthritis(Confirmed) Active Fibromyalgia(Confirmed) Active History of (Confirmed) Active History of ectopic Active (Confirmed) Vital Signs Most recent to oldest [Reference Range]: 1 Blood Pressure [90-138/55-84 mm Hg] 116/62 mm Hg (10/23/19 2:47 PM) Respiratory Rate [16-30 br/min] 20 br/min (10/23/19 2:44 PM) Temperature [96.8-100.4 DegF] 96.8 DegF (10/23/19 2:44 PM) Temperature Route Oral (10/23/19 2:44 PM) Social History Social History Type Response Smoking Status Never (less than 100 in life time) entered on: 07/29/18 Sex Female
[2022-04-02 00:51] VITALS: BP 140/92; PULSE 81; RESP 14; TEMP 37; O2SAT 100
--- NOTE | 2022-04-02 00:56 | PC.NURSE ---
Pt aox4. Reports hx of fibromyalgia with pain 9/10. Clear lung sounds bilaterally. Breaths are even and unlabored with no apparent distress. Reports no eye, nose, or throat irritation. No redness or swelling noted to the face and neck. Discharge instructions provided. Pt verbalizes understanding.
== END 2022-04-02 00:59 | disposition home or self-care (01) ==
PROVIDERS: Emergency Provider Internal Medicine; PCP Nurse Practitioner Family
DX: Z77.098 Contact with and (suspected) exposure to other hazardous, chiefly nonmedicinal, chemicals (principal); Z79.899 Other long term (current) drug therapy
CPT/HCPCS: 99283; 99284

== ENCOUNTER 2022-08-31 10:22 | Outpatient (REF) | payer OTHER, SELFPAY ==
--- NOTE | ~2022-08-31 | US_ITS ---
EXAMINATION: US ABDOMEN LIMITED CLINICAL INFORMATION: Unspecified abdominal hernia without obstruction or gangrene. COMPARISON: Ultrasound abdomen complete 07/20/2016. TECHNIQUE: Real-time imaging superior to the umbilicus. FINDINGS: No hernia could be seen. No abnormal mass or fluid collection is seen. US/US abdomen limited IMPRESSION: No hernia is seen.
--- NOTE | 2022-08-31 14:54 | CA_ITS ---
Transthoracic Echocardiogram Patient (Last, First, Middle): Chika Robles, Gender: Female Date of : 1985 Age: 37 Procedure Date: 08/31/2022 Procedure Type: Transthoracic Echocardiogram Location: OP Height: 152. cm Weight: 81.65 kg BSA: 1.78 m2 Heart Rate: 80 bpm BP: 120 / 70 mmHg Intensive Care Unit Nurse: REESE Knight MD: Orlando Lara [facility] Sole Cementer: Cody Prado MD Symptoms: R01.1 - Cardiac murmur, unspecified Study Quality: Fair ECG Rhythm: Sinus Conclusions: - Essentially normal study Findings Left Ventricle Normal left ventricular size, thickness, and systolic function. The visually estimated ejection fraction is between 60-65%. Diastolic function is normal for age. Right Ventricle Normal right ventricular cavity size and systolic function. Atria Both atria are normal in size. Interatrial shunt cannot be excluded. Aortic Valve Normal aortic valve structure and function. There is no aortic valve stenosis. There is no aortic valve regurgitation. Mitral Valve Normal mitral valve structure and function. There is trace mitral valve regurgitation. There is no mitral valve stenosis. Pulmonic Valve The pulmonic valve is likely normal. Tricuspid Valve Normal tricuspid valve structure. Tricuspid regurgitation envelope is inadequate for calculation of right ventricular systolic pressure. Normal right atrial pressure. Great Vessels All visible segments of the aorta are normal in size. The pulmonary artery was not well visualized. Venous The inferior vena cava is normal in size and collapses greater than 50% with inspiration. Pericardium/Pleural There is no evidence of pericardial effusion. Prior Study Comparison No prior study available for comparison. Measurements 2D Linear Measurements IVSd: 1.01 0.6-0.9/0.6-1.0 cm LVIDd: 4.23 3.9-5.3/4.2-5.9 cm LVIDd Index: 2.38 2.4-3.2/2.2-3.1 cm/m2 LVIDs: 2.79 2.0-3.6 cm LVPWd: 0.90 0.7-1.1 cm LA Diam: 3.30 2.7-3.8/3.0-4.0 cm LAIDs Index: 1.85 1.5-2.3 cm/m2 LV Mass: 162.49 67-162/88-224 g LV Mass Index: 91.29 43-95/49-115 g/m2 LVOT Diam: 1.90 3.0+(-)1.3 cm 2D Systolic Function EF 4C: 62.30 >55% EF 2C: 58.40 >55% EF BiP: 57.90 >55% Mitral Valve MV Pk E: 0.86 MV PK A: 0.91 MV Decel Time: 201.00 E/A: 1.00 E'Lateral: 13.90 E'Medial: 12.20 E/E' Med: 7.10 E/E' Lat: 6.20 PHT: 59.00 MVA PHT: 3.73 Decel Bucks: 4.31 Aortic Valve AoV Pk Benitez: 1.65 AoV Mn Benitez: 1.11 AoV VTI: 0.31 AoV Pk Grad: 11.00 Aov Mn Grad: 6.00 CARMEN Cont.VTI: 2.13 LVOT LVOT Pk Benitez: 1.23 LVOT Mn Benitez: 0.85 LVOT VTI: 0.23 LVOT Pk Grad: 6.00 LVOT Mn Grad: 3.00 LVOT Diam: 1.90 LVOT Area: 2.84 Diastolic Function MV Pk E: 0.86 MV Pk A: 0.91 E/A: 1.00 E'Medial: 12.20 E/E' Med: 7.10 E' Laterial: 13.90 E/E' Lat: 6.20 Right Ventricle TAPSE (mm): 20.40 TVS' Benitez: 14.50 Tricuspid Valve RA Press: 3.00 Great Vessels Aorta Sinus of Valsalva: 2.70 2.0-3.5 cm Ao Asc: 2.50 2.1-3.4 cm Pulmonary Valve PV Pk Benitez: 1.33 Peak PV Grad: 7.00 Updated in Other Vendor System with Status of Final Cody Prado MD electronically signed on 09/01/2022 2:01:29 PM with status of Final
== END 2022-08-31 10:23 | disposition home or self-care (01) ==
LOC: HO.HMGCX 10:22
PROVIDERS: PCP Nurse Practitioner Family; Visit Provider Nurse Practitioner Family
DX: R01.1 Cardiac murmur, unspecified (principal); K46.9 Unspecified abdominal hernia without obstruction or gangrene
CPT/HCPCS: 76705; 93306

== ENCOUNTER 2022-12-23 19:42 | Emergency (ER) | payer OTHER, SELFPAY ==
[2022-12-23 20:09] VITALS: BP 131/87; PULSE 90; RESP 16; TEMP 36.3; O2SAT 100; BMI 35.7
--- OUTSIDE RECORDS SUMMARY | 2022-12-23 20:36 | XMS_ITS | Continuity of Care Document ---
Author Name Unknown Organization [facility] Address [address] [place] [address]- Care Team Providers Care State Auditor Name Role Phone Marco SALDIVAR, Orlando Dangelo Primary Care Physician Encounter [facility] Date(s): 05/01/22 - 05/31/[address] [address]- Attending Physician: Lilian Gilmore Admitting Physician: Lilian Gilmore Referring Physician: AdmtrLilian Allergies, Adverse Reactions, Alerts No Known Allergies Immunizations Given and Recorded Vaccine Date Status Refusal Reason tetanus/diphtheria/pertussis, acel(Tdap) 12/19/21 Given Medications acetaminophen 325 mg oral tablet 650 mg, By Mouth, Every 4 hours, (1-3), may give 325mg per patient preference and re-dose with 325mg within 4 hours, if needed. Patient should only receive a total of 650mg of Acetaminophen every 4 hours., # 50 tablet, Refills 0, Tot. Refills 0, Bárbara... Start Date: 02/21/22 Status: Ordered bisacodyl 10 mg rectal suppository 1 supp = 10 mg, Rectally, Daily, PRN Constipation, # 5 supp, 0 Refills, Maintenance, 02/21/22 6:48:00 EDT, Suppository, [id number], Partial fill upon patient request if the prescription is for a schedule II opioid drug., 153, cm, 02/21/22 0:10... Start Date: 02/21/22 Status: Ordered CeleXA 10 mg oral tablet 10 mg, 1, tablet, By Mouth, Daily, # 30 tablet, Refills 3, Tot. Refills 3, Maintenance, 05/01/22 14:20:00 EDT, Route to Pharmacy Electronically, [facility]/pharmacy #[id number], Partial fill upon patient request if the prescription is for a schedule II opioid drug... Start Date: 05/01/22 Status: Ordered docusate sodium 100 mg oral capsule 100 mg, 1, capsule, By Mouth, 2 times a day, # 60 capsule, Refills 0, Tot. Refills 0, Maintenance, 02/21/22 6:48:00 EDT, Route to Pharmacy Electronically, [facility]/pharmacy #[id number], Partial fill upon patient request if the prescription is for a schedule II o... Start Date: 02/21/22 Status: Ordered ibuprofen 800 mg oral tablet 800 mg, 1, tablet, By Mouth, Every 8 hours, (4-6), may give 400mg per patient preference and re-dose with 400mg within 8 hours, if needed. Patient should only receive a total of 800mg of Ibuprofen every 8 hours., # 50 tablet, Refills 0, Tot. Refills... Start Date: 02/21/22 Status: Ordered ondansetron 4 mg oral tablet, disintegrating 1 tablet = 4 mg, By Mouth, Every 8 hours, PRN as needed for nausea/vomiting, # 10 tablet, 0 Refills, Maintenance, 11/17/21 0:13:00 EDT, DIS Tablet, [facility]/pharmacy #[id number], Partial fill upon patient request if the prescription is for a schedule II opioid d... Start Date: 11/17/21 Status: Ordered Multivitamins with Folic Acid 1 mg oral tablet 1 tablet, By Mouth, Daily, # 90 tablet, 3 Refills, Maintenance, 08/10/21 9:21:00 EST, Tablet, [facility]/pharmacy #[id number], Partial fill upon patient request if the prescription is for a schedule II opioid drug., 1 tablet By Mouth Daily, 178, cm, 07/20/21 19:29... Start Date: 08/10/21 Status: Ordered Plus Iron oral tablet 1 tablet, By Mouth, Daily, # 90 tablet, 3 Refills, Maintenance, 11/22/20 16:41:00 EDT, Tablet, [facility]/pharmacy #[id number], Partial fill upon patient request if the prescription is for a schedule II opioid drug., 1 tablet By Mouth Daily, 178, cm, 10/25/20 13:3... Start Date: 11/22/20 Status: Ordered simethicone 80 mg oral tablet, chewable 80 mg, Chew, 3 times a day, PRN, # 90 tablet, Refills 0, Tot. Refills 0, Maintenance, Gas, 226:48:00 EDT, Route to Pharmacy Electronically, [facility]/pharmacy #[id number], Partial fill upon patient request if the prescription is for a schedule II opioid . Start Date: 02/21/22 Status: Ordered Problem List Condition Confirmation Course Effective Dates Status Health St atus Informant H/O Arthritis Confirmed Active Chronic bipolar disorder 1, 2, 3 Confirmed Active H/O Cataract Confirmed Active Not Vaccinated/COVID-19 4 Confirmed Active Thyroid condition 5 Confirmed Active Ptyalism Confirmed Active Fibromyalgia 6, 7 Confirmed Active H/O Abnormal cervical Pap smear 8 Confirmed 2020 Active H/O hemorrhoids Confirmed Active H/O Anxiety and depression 9 Confirmed Active Obese class I Confirmed Active Social problem Confirmed Active 1Not currently taking medication, stopped taking prior to . Feels stable. Declines BHN 2Managed by PCP - not currently on meds 3last treated about 2 years ago; follows up with primary care currently 4Pt reports she has not been vaccinated against Covid-19 and does not plan to at the OBI visit. 5Patient reports she is being monitored by PCP, states her level was high and she was being monitored but has not been prescribed and is not taking any medications. 6Managed by PCP, patient states takes Flexeril as needed 7Managed by PCP - not currently on meds. 8ASCUS/HPV positive 9Managed by PCP - not currently on meds. Pt informed of [facility] services and declined at time of OBI visit. Social History Social History Type Response Smoking Status Former smoker, quit more than 30 days ago; Other: stopped with ; entered on: 08/10/21 Sex Female Patient Care team information Care Team Personnel Name: Orlando Lara NP Position: Reference Physician Member Role: PCP Address: Address: [address] [place] [id number]- Care Team Related Persons Name: SCOTTIE JOHNSON Name: AUGUSTIN JOHNSON Address: home [address] [place] [address] Name: MENDOZA ROBLERO Address: [address] Address: home [address] [place] [address] Name: BEVERLEY TORRES Address: home [address] [place] [address]
--- OUTSIDE RECORDS SUMMARY | 2022-12-23 20:36 | XMS_ITS | Continuity of Care Document ---
Author Name Unknown Organization [facility] Address [address] [place] [address]- Care Team Providers Care Commercial Lines Account Manager Name Role Phone Marco SALDIVAR, Orlando Dangelo Primary Care Physician [phone] [place] [facility] Date(s): 01/06/22 - 04/12/[address] [address]- Attending Physician: Not on Staff, Attending MD [...] 6:48:00 EDT, Suppository, [facility]/pharmacy #[id number], Partial fill upon patient request if the [...] II opioid drug.... Start Date: 02/21/22 Status: Ordered docusate sodium 100 mg oral capsule 100 mg, 1, capsule, By Mouth, 2 times a day, # 60 capsule, Refills 0, Tot. Refills 0, Maintenance, 02/21/22 6:48:00 EDT, [id number] Partial fill upon patient request [...] Refills, Maintenance, 11/17/21 0:13:00 EDT, DIS Tablet, [facility] Gas, 226:48:00 EDT, Route to Pharmacy Electronically, [facility]/pharmacy #[id number], Partial fill upon patient request if the [...] H/O Anxiety and depression 9 Confirmed Active Social problem Confirmed Active 1Not [...] not currently on meds. Pt informed of [facility] services and declined at time of OBI visit. Social History Social History Type Response Smoking Status Former smoker, quit more than 30 days ago; Other: stopped with ; entered on: 08/10/21 Sex Female Patient Care team information Personnel Name: Orlando Lara NP Address: Address: [address] [place] [address]
--- OUTSIDE RECORDS SUMMARY | 2022-12-23 20:36 | XMS_ITS | Continuity of Care Document ---
Author Name Unknown Organization [facility] Address [address] [place] [address]- Care Team Providers Care Partnership Manager Name Role Phone Marco SALDIVAR, Orlando Dangelo Primary Care Physician [place] [facility]19[place]22 - 07/19/22 [facility] [address] [place], [place] [address] Allergies, Adverse Reactions, Alerts No [...] 05/01/22 14:20:00 EDT, Route [facility], [id number], Partial fill upon patient request if the prescription is for a schedule II opioid drug... Start Date: 05/01/22 Status: Ordered docusate sodium 100 mg oral capsule 100 mg, 1, capsule, By Mouth, 2 times a day, # 60 capsule, Refills 0, Tot. Refills 0, Maintenance, 02/21/22 6:48:00 EDT, [id number] Partial fill upon patient request if [...] Refills, Maintenance, 11/17/21 0:13:00 EDT, DIS Tablet, [facility]/pharmacy #[id number], Partial fill upon patient request if the prescription is for a schedule II opioid d... Start Date: 11/17/21 Status: Ordered Multivitamins with Folic Acid 1 mg oral tablet 1 tablet, By Mouth, Daily, # 90 tablet, 3 Refills, Maintenance, 08/10/21 9:21:00 EST, Tablet, [facility]/pharmacy #[id number], Partial fill upon patient request if the prescription is for a schedule II opioid drug., 1 tablet By Mouth Daily, 178, cm, 07/20/21 19:29... Start Date: 08/10/21 Status: Ordered Plus Iron oral tablet 1 tablet, By Mouth, Daily, # 90 tablet, 3 Refills, Maintenance, 11/22/20 16:41:00 EDT, Tablet, [facility]/pharmacy #[id number], Partial fill upon patient request if the prescription is for a schedule II opioid drug., 1 tablet By Mouth Daily, 178, cm, 10/25/20 13:3... Start Date: 11/22/20 Status: Ordered simethicone 80 mg oral tablet, chewable 80 mg, Chew, 3 times a day, PRN, # 90 tablet, Refills 0, Tot. Refills 0, Maintenance, Gas, :48:00 EDT, Route to Pharmacy Electronically, [facility]/pharmacy #[id number], Partial fill upon patient request if the [...] Reference Physician Member Role: PCP Address: Address: [address] [place] [address]- [place] Care Team Related Persons Name: SCOTTIE JOHNSON Name: AUGUSTIN JOHNSON Address: home [address] [place] [address] Name: MENDOZA ROBLERO Address: [address] Address: home [address] [place] [address] [place] Name: BEVERLEY TORRES Address: home [address] [place] [address]
--- OUTSIDE RECORDS SUMMARY | 2022-12-23 20:36 | XMS_ITS | Continuity of Care Document ---
Author Name Unknown Organization [facility] Address [address] [place] [address]- Care Team Providers Care Manager Export Name Role Phone Marco SALDIVAR, Orlando Dangelo Primary Care Physician [phone] Encounter [facility] [place] Date(s): 03/02/22 - 04/01/[address] [address]- Allergies, Adverse Reactions, Alerts No Known Allergies [...] 6:48:00 EDT, [id number] fill upon patient request [...] Refills, Maintenance, 11/17/21 0:13:00 EDT, DIS Tablet, [facility]/pharmacy #[id number], Partial fill upon patient request if the prescription is for a schedule II opioid d... Start Date: 11/17/21 Status: Ordered Multivitamins with Folic Acid 1 mg oral tablet 1 tablet, By Mouth, Daily, # 90 tablet, 3 Refills, Maintenance, 08/10/21 9:21:00 EST, Tablet, [facility]/pharmacy #[id number], Partial fill upon patient request if the prescription is for a schedule II opioid drug., 1 tablet By Mouth Daily, 178, cm, 07/20/21 19:29... Start Date: 08/10/21 Status: Ordered Plus Iron oral tablet 1 tablet, By Mouth, Daily, # 90 tablet, 3 Refills, Maintenance, 11/22/20 16:41:00 EDT, Tablet, [facility]/pharmacy #[id number], Partial fill upon patient request if the prescription is for a schedule II opioid drug., 1 tablet By Mouth Daily, 178, cm, 10/25/20 13:3... Start Date: 11/22/20 Status: Ordered simethicone 80 mg oral tablet, chewable 80 mg, Chew, 3 times a day, PRN, # 90 tablet, Refills 0, Tot. Refills 0, Maintenance, Gas, :48:00 EDT, Route to Pharmacy Electronically, [facility]/pharmacy #[id number], Partial fill upon patient request if the [...] Personnel Name: Orlando Lara NP Address: Address: [address] [place] [address]
--- OUTSIDE RECORDS SUMMARY | 2022-12-23 20:37 | XMS_ITS | Continuity of Care Document ---
Author Name Unknown Organization [facility] Address [address] [place] [address]- Care Team Providers Care Underwriter Name Role Phone Marco SALDIVAR, Orlando Dangelo Primary Care Physician Encounter [facility] [place] Date(s): 07/10/22 - 08/09/[address] [address] Allergies, Adverse [...] 05/01/22 14:20:00 EDT, Route to Pharmacy Electronically, [facility]/pharmacy #[id number], Partial fill upon patient request if the prescription is for a schedule II opioid drug... Start Date: 05/01/22 Status: Ordered docusate sodium 100 mg oral capsule 100 mg, 1, capsule, By Mouth, 2 times a day, # 60 capsule, Refills 0, Tot. Refills 0, Maintenance, 02/21/22 6:48:00 EDT, [id number] Partial fill upon patient request if [...] Refills, Maintenance, 11/17/21 0:13:00 EDT, DIS Tablet, [facility] Gas, :48:00 EDT, Route to Pharmacy Electronically, [facility]/pharmacy #[id number], Partial fill upon patient request if the [...] Reference Physician Member Role: PCP Address: Address: [address] [place] [address]- [place] Care Team Related Persons Name: SCOTTIE JOHNSON Name: AUGUSTIN JOHNSON Address: home [address] [place] [address] Name: MENDOZA ROBLERO Address: [address] Address: home [address] [place] [address] [place] Name: BEVERLEY TORRES Address: home [address] [place] [address]
--- OUTSIDE RECORDS SUMMARY | 2022-12-23 20:37 | XMS_ITS | Continuity of Care Document ---
Author Name Unknown Organization [facility] Address [address] [place] [address]- Care Team Providers Care Asphalt Paver Name Role Phone Marco SALDIVAR, Orlando Dangelo Primary Care Physician Encounter [facility] Date(s): 03/07/22 - 04/14/[address] [address]- Attending Physician: Not on Staff, Attending MD [...] 0 Refills, Maintenance, 02/21/22 6:48:00 EDT, Suppository, [facility]/pharmacy #[id number], Partial fill upon patient request if [...] [id number] Partial fill upon patient request [...] Refills, Maintenance, 11/17/21 0:13:00 EDT, DIS Tablet, [facility]/pharmacy #[id number], Partial fill upon patient request if the prescription is for a schedule II opioid d... Start Date: 11/17/21 Status: Ordered Multivitamins with Folic Acid 1 mg oral tablet 1 tablet, By Mouth, Daily, # 90 tablet, 3 Refills, Maintenance, 08/10/21 9:21:00 EST, Tablet, [facility]/pharmacy #[id number], Partial fill upon patient request if the prescription is for a schedule II opioid drug., 1 tablet By Mouth Daily, 178, cm, 07/20/21 19:29... Start Date: 08/10/21 Status: Ordered Plus Iron oral tablet 1 tablet, By Mouth, Daily, # 90 tablet, 3 Refills, Maintenance, 11/22/20 16:41:00 EDT, Tablet, [facility]/pharmacy #[id number], Partial fill upon patient request if the prescription is for a schedule II opioid drug., 1 tablet By Mouth Daily, 178, cm, 10/25/20 13:3... Start Date: 11/22/20 Status: Ordered simethicone 80 mg oral tablet, chewable 80 mg, Chew, 3 times a day, PRN, # 90 tablet, Refills 0, Tot. Refills 0, Maintenance, Gas, :48:00 EDT, Route to Pharmacy Electronically, [facility]/pharmacy #[id number], Partial fill upon patient request if the [...] currently on meds. Pt informed of [facility] services and declined at time of OBI visit. Social History Social History Type Response Smoking Status Former smoker, quit more than 30 days ago; Other: stopped with ; entered on: 08/10/21 Sex Female Patient Care team information Personnel Name: Marco SALDIVAR , Orlando Dangelo Address: Address: [address] [place] [address]
--- OUTSIDE RECORDS SUMMARY | 2022-12-23 20:37 | XMS_ITS | Continuity of Care Document ---
Author Name Unknown Organization [facility] Address [address] [place] [address]- Care Team Providers Care Core Feeder Name Role Phone Marco SALDIVAR, Orlando Dangelo Primary Care Physician [phone] Encounter [facility] [place] Date(s): 05/04/22 - 06/03/[address] [address]- Allergies, Adverse Reactions, Alerts No Known Allergies [...] Refills, Maintenance, 11/17/21 0:13:00 EDT, DIS Tablet, [facility]/pharmacy [...] Gas, :48:00 EDT, Route to Pharmacy Electronically, [facility]/pharmacy #[id number], Partial fill upon patient request if the [...] Physician Member Role: PCP Address: Address: [address] [place] [address]- Care Team Related Persons Name: SCOTTIE JOHNSON Name: AUGUSTIN JOHNSON Address: home [address] [place] [address] Name: MENDOZA ROBLERO Address: [address] Address: home [address] [place] [address] [place] Name: BEVERLEY TORRES Address: [address] [place] [address]
--- OUTSIDE RECORDS SUMMARY | 2022-12-23 20:37 | XMS_ITS | Continuity of Care Document ---
Author Name Unknown Organization [facility] Address [address] [place] [address]- Care Team Providers Care Quality Assurance Intern Name Role Phone Marco SALDIVAR, Orlando Dangelo Primary Care Physician [phone] Encounter [place] Date(s): 01/06/22 - 04/06/[address] [address]- Attending Physician: Not on Staff, Attending MD [...] 0 Refills, Maintenance, 02/21/22 6:48:00 EDT, Suppository, [facility]/pharmacy #[id number], Partial fill upon patient request if the [...] 02/21/22 6:48:00 EDT, [id number] fill upon patient request [...] Refills, Maintenance, 11/17/21 0:13:00 EDT, DIS Tablet, [facility]/pharmacy #[id number], Partial fill upon patient request if the prescription is for a schedule II opioid d... Start Date: 11/17/21 Status: Ordered Multivitamins with Folic Acid 1 mg oral tablet 1 tablet, By Mouth, Daily, # 90 tablet, 3 Refills, Maintenance, 08/10/21 9:21:00 EST, Tablet, [facility]/pharmacy #[id number], Partial fill upon patient request if the prescription is for a schedule II opioid drug., 1 tablet By Mouth Daily, 178, cm, 07/20/21 19:29... Start Date: 08/10/21 Status: Ordered Plus Iron oral tablet 1 tablet, By Mouth, Daily, # 90 tablet, 3 Refills, Maintenance, 11/22/20 16:41:00 EDT, Tablet, [facility]/pharmacy #[id number], Partial fill [...] Gas, 226:48:00 EDT, Route to Pharmacy Electronically, [facility]/pharmacy #[id number], Partial fill upon patient request if the [...] currently on meds. Pt informed of [facility] services and declined at time of OBI visit. Social History Social History Type Response Smoking Status Former smoker, quit more than 30 days ago; Other: stopped with ; entered on: 08/10/21 Sex Female Patient Care team information Personnel Name: Orlando Lara NP Address: Address: [address] [place] [address]
--- OUTSIDE RECORDS SUMMARY | 2022-12-23 20:37 | XMS_ITS | Continuity of Care Document ---
Author Name Unknown Organization [facility] Address [address] [place] [id number]- Care Team Providers Care Semiconductor Wafers Etch Operator Name Role Phone Marco SALDIVAR, Orlando Dangelo Primary Care Physician Encounter [facility] [place] Date(s): 02/21/22 - 04/06/[address] [address]- Attending Physician: Not on Staff, Attending MD [...] Maintenance, 02/21/22 6:48:00 EDT, Suppository, [facility]/pharmacy #[id number], Partial fill upon patient request if the [...] 02/21/22 6:48:00 EDT, [id number] fill upon patient request [...] 11/17/21 0:13:00 EDT, DIS Tablet, [facility]/pharmacy #[id number], Partial fill upon patient request if the prescription is for a schedule II opioid d... Start Date: 11/17/21 Status: Ordered Multivitamins with Folic Acid 1 mg oral tablet 1 tablet, By Mouth, Daily, # 90 tablet, 3 Refills, Maintenance, 08/10/21 9:21:00 EST, Tablet, [facility]/pharmacy #[id number], Partial fill upon patient request if the prescription is for a schedule II opioid drug., 1 tablet By Mouth Daily, 178, cm, 07/20/21 19:29... Start Date: 08/10/21 Status: Ordered Plus Iron oral tablet 1 tablet, By Mouth, Daily, # 90 tablet, 3 Refills, Maintenance, 11/22/20 16:41:00 EDT, Tablet, [facility]/pharmacy #[id number], Partial fill [...] EDT, Route to Pharmacy Electronically, [facility]/pharmacy #[id number], Partial fill upon patient request if the [...] not currently on meds. Pt informed of [facility] services and declined at time of OBI visit. Social History Social History Type Response Smoking Status Former smoker, quit more than 30 days ago; Other: stopped with ; entered on: 08/10/21 Sex Female Patient Care team information Personnel Name: Orlando Lara NP Address: Address: [address] [place] [phone]
--- OUTSIDE RECORDS SUMMARY | 2022-12-23 20:37 | XMS_ITS | Continuity of Care Document ---
Author Name Unknown Organization [facility] ter Address [address] [place] [id number]- Care Team Providers Care Fabric Cutter Name Role Phone Marco SALDIVAR, Orlando Dangelo Primary Care Physician Encounter [facility] [place] Date(s): 01/12/22 - 04/08/[address] [address] Attending Physician: Elva Boyer MD Referring Physician: Elva Boyer MD Allergies, Adverse Reactions, Alerts No Known [...] Refills, Maintenance, 02/21/22 6:48:00 EDT, Suppository, [id number], Partial fill upon patient request if the [...] Maintenance, 11/17/21 0:13:00 EDT, DIS Tablet, [facility]/pharmacy #[id number], Partial fill upon patient request if the prescription is for a schedule II opioid d... Start Date: 11/17/21 Status: Ordered Multivitamins with Folic Acid 1 mg oral tablet 1 tablet, By Mouth, Daily, # 90 tablet, 3 Refills, Maintenance, 08/10/21 9:21:00 EST, Tablet, [facility]/pharmacy #[id number], Partial fill upon patient request if the prescription is for a schedule II opioid drug., 1 tablet By Mouth Daily, 178, cm, 07/20/21 19:29... Start Date: 08/10/21 Status: Ordered Plus Iron oral tablet 1 tablet, By Mouth, Daily, # 90 tablet, 3 Refills, Maintenance, 11/22/20 16:41:00 EDT, Tablet, [facility]/pharmacy #[id number], Partial fill upon patient request if the prescription is for a schedule II opioid drug., 1 tablet By Mouth Daily, 178, cm, 10/25/20 13:3... Start Date: 11/22/20 Status: Ordered simethicone 80 mg oral tablet, chewable 80 mg, Chew, 3 times a day, PRN, # 90 tablet, Refills 0, Tot. Refills 0, Maintenance, Gas, 226:48:00 EDT, Route to Pharmacy Electronically, [facility]/pharmacy #[id number], Partial fill upon patient request if the [...] Personnel Name: Orlando Lara NP Address: Address: [address] [place] [phone]-
--- OUTSIDE RECORDS SUMMARY | 2022-12-23 20:37 | XMS_ITS | Continuity of Care Document ---
Author Name Unknown Organization [facility] ter Address [address] [place] [phone]- Care Team Providers Care Audio Visual Aids Director Name Role Phone Marco SALDIVAR, Orlando Dangelo Primary Care Physician Encounter [facility] Date(s): 05/04/22 - 05/04/[address] [address] Discharge Disposition: A-D/C Home Attending Physician: Elva Boyer MD Admitting Physician: Elva Boyer MD Referring Physician: Elva [...] Refills, Maintenance, 02/21/22 6:48:00 EDT, Suppository, [id number], Partial fill upon patient request if the prescription is for a schedule II opioid drug., 153, cm, 02/21/22 0:10... Start Date: 02/21/22 Status: Ordered CeleXA 10 mg oral tablet 10 mg, 1, tablet, By Mouth, Daily, # 30 tablet, Refills 3, Tot. Refills 3, Maintenance, 05/01/22 14:20:00 EDT, [id number] fill upon patient request if the prescription is for a schedule II opioid drug... Start Date: 05/01/22 Status: Ordered docusate sodium 100 mg oral capsule 100 mg, 1, capsule, By Mouth, 2 times a day, # 60 capsule, Refills 0, Tot. Refills 0, Maintenance, 02/21/22 6:48:00 EDT, Route to Pharmacy Electronically, [facility]/pharmacy #[id number], Partial fill upon patient request [...] Refills, Maintenance, 11/17/21 0:13:00 EDT, DIS Tablet, [facility]/pharmacy #[id number], Partial fill upon patient request if the prescription is for a schedule II opioid d... Start Date: 11/17/21 Status: Ordered Multivitamins with Folic Acid 1 mg oral tablet 1 tablet, By Mouth, Daily, # 90 tablet, 3 Refills, Maintenance, 08/10/21 9:21:00 EST, Tablet, [facility]/pharmacy #[id number], Partial fill upon patient request if the prescription is for a schedule II opioid drug., 1 tablet By Mouth Daily, 178, cm, 07/20/21 19:29... Start Date: 08/10/21 Status: Ordered Plus Iron oral tablet 1 tablet, By Mouth, Daily, # 90 tablet, 3 Refills, Maintenance, 11/22/20 16:41:00 EDT, Tablet, [facility]/pharmacy #[id number], Partial fill upon patient request if the prescription is for a schedule II opioid drug., 1 tablet By Mouth Daily, 178, cm, 10/25/20 13:3... Start Date: 11/22/20 Status: Ordered simethicone 80 mg oral tablet, chewable 80 mg, Chew, 3 times a day, PRN, # 90 tablet, Refills 0, Tot. Refills 0, Maintenance, Gas, :48:00 EDT, Route to Pharmacy Electronically, [facility]/pharmacy #[id number], Partial fill upon patient request if the [...] not currently on meds. Pt informed of [facility] services and declined at time of OBI visit. Vital Signs Most recent to oldest [Reference Range]: 1 Height 153 cm (05/04/22 11:10 AM) Weight 79.4 kg (05/04/22 11:05 AM) Oxygen Saturation [94-100 %] 100 % (05/04/22 11:05 AM) Pulse Rate [55-90 bpm] 78 bpm (05/04/22 11:05 AM) Blood Pressure [90-138/55-84 mm Hg] 127/ 73mm Hg (05/04/22 11:05 AM) Respiratory Rate [16-30 br/min] 18 br/mi n (05/04/22 11:05 AM) Temperature [96.8-100.4 DegF] 98.4 DegF (05/04/22 11:05 AM) Mode of Delivery (Oxygen) Room air (05/04/22 11:05 AM) Blood pressure sites Arm, right 1 (05/04/22 11:05 AM) Temperature Route Oral (05/04/22 11:05 AM) Dry Weight 79.4 kg (05/04/22 11:05 AM) 1Result Comment: measured 33cm Social History Social History Type Response Smoking Status Former smoker, quit more than 30 days ago; Other: stopped with ; entered on: 08/10/21 Sex Female Patient Care team information Personnel Name: Marco SALDIVAR , Orlando Dangelo Address: Address: [address] [place] [id number]
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
== END 2022-12-23 21:45 | disposition home or self-care (01) ==
PROVIDERS: Emergency Provider Emergency Medicine Emergency Medical Services; PCP Nurse Practitioner Family
DX: Z04.1 Encounter for examination and observation following transport accident (principal)
CPT/HCPCS: 99282

== ENCOUNTER 2023-02-21 08:30 | Outpatient (AMB) | payer OTHER, SELFPAY ==
[2023-02-21 08:33] VITALS: BP 102/70; PULSE 76; O2SAT 100; BMI 35.2
--- NOTE | 2023-02-21 08:33 | A.OFFPC_ITS ---
Vital Signs 02/21/23 08:33 Height 5 ft Weight 180 lb 8 oz BMI 35.2 BP 102/70 Blood Pressure Location Lt brachial Position Sitting Pulse 76 Pulse Source Pulse Oximeter Pulse Oximetry (%) 100 Oxygen Delivery Method Room Air Intake Visit Reasons: 6M follow up Allergies No Known Allergies [No Known Allergies*] Allergy (Unknown, Verified 02/21/23 08:42) N.K.D.A. Allergy (Unknown, Uncoded 02/21/23 08:42) unknown Medication List - Last Reconciled 02/21/23 by TIFFANY Dill cyclobenzaprine 10 mg PO BID 30 days ibuprofen 800 mg PO BID PRN 30 days Tobacco use date assessed: 02/21/23 Dental Screening Dental Screen Date: 02/21/23 Did you have a dental visit in the last 12 months?: No Did you have a dental problem in the last 6 months where you did not have access to dental care?: No Was dental information given to patient?: Patient has dentist HPI 6M follow up HPI Details Pt c/o pain to her left 2nd toe x3-4 months. She reports that this is worse with movement and palpation. Will order xr and refer to podiatry. Denies fever, chills, and dizziness. PFSH Family History Mother Mental health disorder Father Substance use disorder Mental health disorder Sister Substance use disorder Mental health disorder Maternal Aunt Mental health disorder Social History Housing: Condominium Patient Tobacco Use Status: Current everyday Tobacco user Cigarettes Per Day: 2 e-Cigarette/Vaping Use: Never Used Second Hand Smoke Exposure: No Current occupational status: employed Current occupation: [employer] Current occupational exposures/hazards: No Cognitive needs: No Hearing needs: No Vision needs: No Questionnaire Thrive Questionnaire Date Thrive assessed: 05/10/21 Review of Systems Const Reports as per HPI Physical exam (Primary Care) Vital Signs: Last Vital Signs Pulse 76 02/21/23 08:33 BP 102/70 02/21/23 08:33 Pulse Ox 100 02/21/23 08:33 Oxygen Delivery Method Room Air 02/21/23 08:33 BMI result Body Mass Index 35.2 Tobacco/Smoking Status: Tobacco use Status Tobacco use date assessed 02/21/23 02/21/23 08:40 Patient Tobacco Use Status Current everyday Tobacco 02/21/23 08:33 e-Cigarette/Vaping Use Never Used 02/21/23 08:33 Thrive Assessment: Date of Thrive Assessment Date Thrive assessed 05/10/21 02/21/23 08:33 Const General: cooperative Nutritional Appearance: obese Orientation/consciousness: patient oriented x3 Resp Effort & Inspection: normal respiratory effort Auscultation: clear to auscultation bilaterally Cardio Rate: regular rate Rhythm: regular rhythm Heart sounds: S1 normal heart sound present and S2 normal heart sound present Neuro General: patient oriented x3 Extrem Other: left foot 2nd toe 1st MTP joint severe TTP, no active swelling, severe tenderness with dorsi and plantar flexion of toes Psych Appearance: grossly normal Mental Status: mental status grossly normal Speech and movement: Normal speech and movement present Affect: normal affect Attitude: cooperative Thought process: Normal thought process present Thought content: Normal thought content present Insight: Good insight present (Psych) Judgement: Good judgement present (Psych) Assessment and Plan Assessment & Plan (1) Toe pain, chronic: Code(s): M79.676 - Pain in unspecified toe(s); G89.29 - Other chronic pain Plan: XR ordered, referred to podiatry Plan The patient agreed to the use of a medical claims processor for this encounter. Scribed for GAUDENCIO Mason- by Bessy Ba medical claims processor, on 02/21/2023 at 08:45 EST. Orders: Orders XR toe LT min 2V Today G89.29 - Other chronic pain, M79.676 - Pain in unspecified toe(s) Uric Acid Today G89.29 - Other chronic pain, M79.676 - Pain in unspecified toe(s) Referrals Podiatry Referral G89.29 - Other chronic pain, M79.676 - Pain in unspecified toe(s) Coding Level of Care Code Est Pt Level 3 (94947) Diagnoses Toe pain, chronic M79.676; G89.29
== END 2023-02-21 09:24 | disposition home or self-care (01) ==
PROVIDERS: Visit Provider Nurse Practitioner Family
DX: M79.676 Pain in unspecified toe(s) (principal); G89.29 Other chronic pain
CPT/HCPCS: 99213

== ENCOUNTER 2023-02-21 08:53 | Outpatient (REF) | payer OTHER, SELFPAY ==
--- NOTE | ~2023-02-21 | XR_ITS ---
EXAMINATION: XR TOES, LEFT CLINICAL INFORMATION: Left second toe pain COMPARISON: Left foot radiographs dated 04/20/2013. TECHNIQUE: 3 views of the left toes were obtained. A marker arrow is directed towards the second toe, indicating the site of pain. FINDINGS: There are no fractures or dislocations. No joint effusion is identified. No bone, joint or soft tissue abnormality is demonstrated. XR/XR toe LT min 2V IMPRESSION: Unremarkable examination.
== END 2023-02-21 08:54 | disposition home or self-care (01) ==
LOC: HO.HMGCX 08:53
PROVIDERS: PCP Nurse Practitioner Family; Visit Provider Nurse Practitioner Family
DX: M79.675 Pain in left toe(s) (principal); G89.29 Other chronic pain
CPT/HCPCS: 73660

== ENCOUNTER 2023-03-01 08:56 | Outpatient (REF) | payer OTHER, SELFPAY ==
--- NOTE | ~2023-03-01 | XR_ITS ---
X-RAY RIGHT HAND AND X-RAY LEFT HAND CLINICAL HISTORY: Pain. COMPARISON: Radiograph left hand 08/30/2016. Radiograph right hand 08/27/2014. TECHNIQUE: 3 views of each hand. FINDINGS: No acute fractures or subluxation. No significant joint space narrowing or spurring. No osseous erosions. No abnormal soft tissue calcifications. XR/XR hand RT min 3V IMPRESSION: 1. No acute fractures or subluxation. 2. No significant degenerative changes. 3. No evidence of inflammatory osteoarthritis.
--- NOTE | ~2023-03-01 | XR_ITS ---
X-RAY RIGHT HAND AND X-RAY LEFT HAND CLINICAL HISTORY: Pain. COMPARISON: Radiograph left hand 08/30/2016. Radiograph right hand 08/27/2014. TECHNIQUE: 3 views of each hand. FINDINGS: No acute fractures or subluxation. No significant joint space narrowing or spurring. No osseous erosions. No abnormal soft tissue calcifications. XR/XR hand LT min 3V IMPRESSION: 1. No acute fractures or subluxation. 2. No significant degenerative changes. 3. No evidence of inflammatory osteoarthritis.
== END 2023-03-01 08:57 | disposition home or self-care (01) ==
LOC: HO.HMGCX 08:56
PROVIDERS: PCP Nurse Practitioner Family; Visit Provider Nurse Practitioner Family
DX: M79.641 Pain in right hand (principal); M79.642 Pain in left hand
CPT/HCPCS: 73130

== ENCOUNTER 2023-03-26 21:00 | Emergency (ER) | payer OTHER, SELFPAY ==
--- NOTE | ~2023-03-26 | XR_ITS ---
EXAMINATION: CHEST AND RIGHT RIBS, LEFT TIB-FIB, RIGHT FOREARM CLINICAL INFORMATION: Fall with pain COMPARISON: None available. TECHNIQUE: Single view chest with 3 additional views right RIBS, 2 views right forearm, 2 views left tib-fib FINDINGS: The heart and pulmonary vessels appear normal. No infiltrates, effusions or lung masses. No rib fractures are seen. No pneumothorax. The right radius and ulna appear normal. The left tibia and fibula appear normal. XR/XR forearm RT 2V IMPRESSION: No acute intrathoracic disease. No rib fractures are seen. No fractures involving the right radius and ulna or the left tibia and fibula.
--- NOTE | ~2023-03-26 | XR_ITS ---
EXAMINATION: CHEST AND RIGHT RIBS, LEFT TIB-FIB, RIGHT FOREARM CLINICAL INFORMATION: Fall with pain COMPARISON: None available. TECHNIQUE: Single view chest with 3 additional views right RIBS, 2 views right forearm, 2 views left tib-fib FINDINGS: The heart and pulmonary vessels appear normal. No infiltrates, effusions or lung masses. No rib fractures are seen. No pneumothorax. The right radius and ulna appear normal. The left tibia and fibula appear normal. XR/XR tibia fibula LT 2V IMPRESSION: No acute intrathoracic disease. No rib fractures are seen. No fractures involving the right radius and ulna or the left tibia and fibula.
--- NOTE | ~2023-03-26 | XR_ITS ---
EXAMINATION: CHEST AND RIGHT RIBS, LEFT TIB-FIB, RIGHT FOREARM CLINICAL INFORMATION: Fall with pain COMPARISON: None available. TECHNIQUE: Single view chest with 3 additional views right RIBS, 2 views right forearm, 2 views left tib-fib FINDINGS: The heart and pulmonary vessels appear normal. No infiltrates, effusions or lung masses. No rib fractures are seen. No pneumothorax. The right radius and ulna appear normal. The left tibia and fibula appear normal. XR/XR ribs RT min 3V w CXR1V IMPRESSION: No acute intrathoracic disease. No rib fractures are seen. No fractures involving the right radius and ulna or the left tibia and fibula.
[2023-03-26 21:19] VITALS: BP 129/91; PULSE 92; RESP 18; TEMP 36.4; O2SAT 99; BMI 34.0
[2023-03-26 22:37] VITALS: BP 122/79; PULSE 74; RESP 16; TEMP 36.7; O2SAT 98
[2023-03-26] MEDS: Cyclobenzaprine HCl 10 MG TABLET PO (23:04)
--- NOTE | 2023-03-26 23:04 | ED_ITS ---
HPI - General Adult General Chief complaint: Fall Stated complaint: fell rib,arm leg pain Time Seen by Provider: 03/26/23 22:41 Source: patient and RN notes reviewed Mode of arrival: ambulatory Limitations: no limitations History of Present Illness HPI narrative: 37-year-old female presents for evaluation of multiple injuries after a fall. Patient reports that she was standing on top of a chair that broke and she fell down. She reports she landed on her right ribs, right forearm and left lower leg She denies hitting her head or losing consciousness She complains of 6/10 pain She also has history of fibromyalgia and arthritis and states ?I am always in pain. ? She has been able to ambulate since the fall Denies shortness of breath or chest pain Related Data Previous Rx's Medication Instructions Recorded cyclobenzaprine 10 mg tablet 10 mg PO BID 30 days #60 tabs 11/04/22 ibuprofen 800 mg tablet 800 mg PO BID PRN pain 30 days #60 02/22/23 tabs Allergies Allergy/AdvReac Type Severity Reaction Status Date / Time No Known Allergies Allergy Unknown Verified 03/26/23 21:26 [No Known Allergies*] N.K.D.A. Allergy Unknown unknown Uncoded 02/21/23 08:42 Review of Systems Constitutional: Constitutional: Denies chills and Denies fatigue Cardiovascular: Cardiovascular: Denies chest pain and Denies dyspnea Comments: Right chest wall pain Respiratory: Respiratory: Denies cough and Denies dyspnea Gastrointestinal: Gastrointestinal: Denies abdominal pain, Denies nausea and Denies vomiting Genitourinary: Genitourinary: Denies difficulty voiding Musculoskeletal: Musculoskeletal: Reports back pain, Reports arthralgias, Reports joint swelling, Reports limited range of motion and Reports stiffness Endocrine: Endocrine: Denies fatigue [facility] Family History Family History Mother Mental health disorder Father Substance use disorder Mental health disorder Sister Substance use disorder Mental health disorder Maternal Aunt Mental health disorder Social History Social History Housing: Condominium Patient Tobacco Use Status: Current everyday Tobacco user Cigarettes Per Day: 2 e-Cigarette/Vaping Use: Never Used Second Hand Smoke Exposure: No Advance Directives: No Advance Directives Information Provided: No Current occupational status: employed Current occupation: [employer] Current occupational exposures/hazards: No Cognitive needs: No Hearing needs: No Vision needs: No Physical Exam ED Vital Signs: Vital Signs - 24 hr 03/26/23 21:19 03/26/23 22:37 Temperature 97.6 F 98.1 F Pulse Rate 92 74 Respiratory Rate 18 16 Blood Pressure 129/91 H 122/79 Pulse Oximetry 99 98 Oxygen Delivery Method Room Air Room Air BMI result Body Mass Index 34.0 Const General: healthy appearing, comfortable, no acute distress, alert and awake Nutritional Appearance: well nourished Orientation/consciousness: patient oriented x3 HENMT Head: Yes normocephalic and Yes atraumatic Eyes Eyelids: Yes eyelids normal Conjunctivae: conjunctivae normal Sclerae: sclerae normal Corneas: corneas normal Pupils: Equal, round and reactive pupils present EOM: EOMs intact bilaterally Neck Neck: Yes full ROM Chest Other: Right chest wall tenderness in the right mid axillary line. No deformities noted, no lesions, ecchymosis. No crepitus Resp Effort & Inspection: normal respiratory effort, able to speak in complete sentences and not labored Cardio Rate: regular rate Rhythm: regular rhythm Skin General skin exam: no rashes or lesions noted and elasticity normal Neuro General: patient oriented x3 Cranial nerves: Yes Equal, round and reactive pupils present and Yes Bilaterally intact EOM present Cognition (Neuro): normal cognition Extrem Other: Moving all extremities well without any obvious deformities. Small area of ecchymosis to the right forearm that is tender to palpation. No right elbow or wrist tenderness. Left lateral lower leg tenderness proximal to the lateral malleolus Medications Administered Discontinued Medications Generic Name Dose Route Start Last Admin Trade Name Freq PRN Reason Stop Dose Admin Cyclobenzaprine HCl 10 mg 03/26/23 22:46 03/26/23 23:04 Cyclobenzaprine Hcl 10 Mg Tablet PO 03/26/23 22:47 10 mg ONCE ONE Administration Ibuprofen 800 mg 03/26/23 22:46 03/26/23 23:05 Ibuprofen 800 Mg Tablet PO 03/26/23 22:47 800 mg ONCE ONE Administration Medical Decision Making Medical Decision Making MDM Narrative: 37-year-old female presents for evaluation of multiple injuries after a fall. Plan for x-rays of the right ribs with PA chest to evaluate for rib fracture plus pneumothorax. X-ray of the right forearm and left lower leg ordered as well. Differential Diagnosis Differential Diagnoses: The differential diagnosis associated with the presentation includes Rib Fracture Contusion Pneumothorax Hematoma Radius fracture Ulna fracture Independent Interpretation I performed an independent interpretation of an: Plain X-Ray (No acute displaced rib fracture or pneumothorax. No at this were on fracture. No fracture involving tibia or fibula) Discharge Plan Discharge Clinical Impression: Fall, Contusion of forearm, right Patient Disposition: Home, Self-Care Instructions: Contusion in Adults (ED) Additional Instructions: Your x-rays do not show any evidence of fractures You may use ibuprofen/Tylenol as needed for pain Follow-up with your primary doctor Prescriptions: No Action cyclobenzaprine 10 mg tablet 10 mg PO BID 30 Days Qty: 60 0RF ibuprofen 800 mg tablet 800 mg PO BID PRN (Reason: pain) 30 Days Qty: 60 0RF Stand Alone Forms: Work/School Release
[2023-03-26] MEDS: Ibuprofen 800 MG TABLET PO (23:05)
[2023-03-27 00:08] VITALS: BP 123/78; PULSE 72; RESP 16; TEMP 36.2; O2SAT 97
== END 2023-03-27 00:37 | disposition home or self-care (01) ==
PROVIDERS: Emergency Provider Internal Medicine; PCP Nurse Practitioner Family
DX: S50.11XA Contusion of right forearm, initial encounter (principal); W07.XXXA Fall from chair, initial encounter; M79.662 Pain in left lower leg; R07.81 Pleurodynia; E78.5 Hyperlipidemia, unspecified; F17.210 Nicotine dependence, cigarettes, uncomplicated; Y93.89 Activity, other specified; Y92.9 Unspecified place or not applicable; Y99.9 Unspecified external cause status
CPT/HCPCS: 71101; 73090; 73590; 99283

== ENCOUNTER 2023-04-04 10:10 | Outpatient (AMB) | payer OTHER, SELFPAY ==
[2023-04-04 10:15] VITALS: BP 130/76; PULSE 84; O2SAT 99; BMI 34.5
--- NOTE | 2023-04-04 10:15 | MHC.PC.OV ---
Vital Signs 04/04/23 10:15 Height 5 ft 1 in Weight 182 lb 6 oz BMI 34.5 BP 130/76 Blood Pressure Location Lt brachial Position Sitting Pulse 84 Pulse Source Pulse Oximeter Pulse Oximetry (%) 99 Oxygen Delivery Method Room Air Intake Visit Reasons: pain in both legs, feet Intake Note: pt is here for pains in both her legs and feet and her back pt says it has been all her life but it has been getting worse Allergies No Known Allergies [No Known Allergies*] Allergy (Unknown, Verified 04/04/23 10:17) N.K.D.A. Allergy (Unknown, Uncoded 04/04/23 10:17) unknown Medication List - Last Reconciled 04/04/23 by TIFFANY Dill cyclobenzaprine 10 mg PO BID 30 days ibuprofen 800 mg PO BID PRN 30 days Tobacco use date assessed: 04/04/23 Dental Screening Dental Screen Date: 04/04/23 Did you have a dental visit in the last 12 months?: No Did you have a dental problem in the last 6 months where you did not have access to dental care?: No Was dental information given to patient?: Patient has dentist HPI pain in both legs, feet HPI Details pain reported to left foot, currently seeing a outside sales manager, MRI ordered after being seen by PT for approx 6 weeks. #2 lower back pain reported, with radicular pains to bilat buttocks. Pt denies radicular symptoms down BLE. Pt denies a s/s of hypoglycemia. PFSH Family History Mother Mental health disorder Father Substance use disorder Mental health disorder Sister Substance use disorder Mental health disorder Maternal Aunt Mental health disorder Social History Housing: Condominium Patient Tobacco Use Status: Current everyday Tobacco user Cigarettes Per Day: 2 e-Cigarette/Vaping Use: Never Used Second Hand Smoke Exposure: No Current occupational status: employed Current occupation: [employer] Current occupational exposures/hazards: No Cognitive needs: No Hearing needs: No Vision needs: No Questionnaire Thrive Questionnaire Date Thrive assessed: 05/10/21 Physical exam (Primary Care) Vital Signs: Last Vital Signs Pulse 84 04/04/23 10:15 BP 130/76 04/04/23 10:15 Pulse Ox 99 04/04/23 10:15 Oxygen Delivery Method Room Air 04/04/23 10:15 BMI result Body Mass Index 34.5 Tobacco/Smoking Status: Tobacco use Status Tobacco use date assessed 04/04/23 04/04/23 10:19 Patient Tobacco Use Status Current everyday Tobacco 04/04/23 10:19 e-Cigarette/Vaping Use Never Used 04/04/23 10:19 Thrive Assessment: Date of Thrive Assessment Date Thrive assessed 05/10/21 04/04/23 10:19 Const General: cooperative Resp Effort & Inspection: normal respiratory effort Auscultation: clear to auscultation bilaterally Cardio Rate: regular rate Rhythm: regular rhythm Heart sounds: S1 normal heart sound present, S2 normal heart sound present and no murmurs Back/Spine/Pelvis Other: with heel and toe walking, tenderness noted to lower transverse back pain with radicular symptoms to bilat buttocks. With pt in supine position, able to perform knee to chest raises and entire lower extrem raises, tenderness to lower transverse back with radicular symptoms to bilat buttocks. With palpation of lower transverse back and upper buttocks, tenderness noted. Extrem Other: + DP bilat, + patellar reflexes noted bilat Psych Appearance: grossly normal Speech and movement: Normal speech and movement present Affect: normal affect Thought content: Normal thought content present Insight: Good insight present (Psych) Assessment and Plan Assessment & Plan (1) Chronic lower back pain: Code(s): M54.50 - Low back pain, unspecified; G89.29 - Other chronic pain Plan muscle relaxors (cont), prednisone sent. recommend heat and streching (daily) Orders: Referrals Chiropractic Referral G89.29 - Other chronic pain, M54.50 - Low back pain, unspecified Medications: New prednisone 50 mg PO DAILY 6 days 6 tabs 0RF Coding Level of Care Code Est Pt Level 3 (33625) Diagnoses Chronic lower back pain M54.50; G89.29
== END 2023-04-04 12:03 | disposition home or self-care (01) ==
PROVIDERS: PCP Nurse Practitioner Family; Visit Provider Nurse Practitioner Family
DX: M54.50 Low back pain, unspecified (principal); G89.29 Other chronic pain
CPT/HCPCS: 99213

== ENCOUNTER 2023-05-28 08:28 | Outpatient (AMB) | payer OTHER, SELFPAY ==
[2023-05-28 09:21] VITALS: BP 130/74; PULSE 80; TEMP 36.6; O2SAT 97; BMI 35.3
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
== END 2023-05-28 10:17 | disposition home or self-care (01) ==
PROVIDERS: PCP Nurse Practitioner Family; Visit Provider Internal Medicine
DX: M54.9 Dorsalgia, unspecified (principal)
CPT/HCPCS: 99213

== ENCOUNTER 2023-07-19 11:34 | Outpatient (AMB) | payer OTHER, SELFPAY ==
[2023-07-19 13:07] VITALS: BP 112/76; PULSE 87; TEMP 36.8; O2SAT 99; BMI 35.1
--- NOTE | 2023-07-19 13:07 | AM.OFFWIN_ITS ---
Intake Vital Signs 07/19/23 13:07 Height 5 ft 1 in Weight 186 lb BMI 35.1 BP 112/76 Blood Pressure Location Lt brachial Position Sitting Pulse 87 Pulse Source Pulse Oximeter Temp 98.2 F Temp Source Temporal Artery Scan Pulse Oximetry (%) 99 Intake Visit Reasons: EST/body aches, sore throat([id number]) Intake Note: pt is here today for body aches sore throat started 3 days ago Patient Tobacco Use Status: Current everyday Tobacco user Allergies No Known Allergies [No Known Allergies*] Allergy (Unknown, Verified 07/19/23 13:07) N.K.D.A. Allergy (Unknown, Uncoded 05/28/23 09:51) unknown Do you need a note to return to daycare/school/sports/work: Yes HPI HPI Comments History of Present Illness Details 38 y/o female presents to walk in with c /o sorethroat and body aches x 3 days. Sick contacts at home her children with RSV and Flu. Reports sinus pressure and congestion. She has not taken any OTC remedies. 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 Current occupational exposures/hazards: No Cognitive needs: No Hearing needs: No Vision needs: No Review of Systems Const All systems reviewed & are unremarkable except as noted in HPI and below Physical Exam Vital Signs: Last Vital Signs Temp 98.2 F 07/19/23 13:07 Pulse 87 07/19/23 13:07 BP 112/76 07/19/23 13:07 Pulse Ox 99 07/19/23 13:07 BMI result Body Mass Index 35.1 Const General: no acute distress; No comfortable HEENT Head: Yes normocephalic Ears: external ears normal and TM's normal bilaterally General nose exam: Abnormal mucous membranes and turbinates present boggy and erythematous and Nasal discharge present Face and sinus: Yes sinus tenderness Mouth: Normal oral and palatal mucosa present and moist mucous membranes Throat: Yes postnasal drainage Resp Effort & Inspection: normal respiratory effort Auscultation: clear to auscultation bilaterally Cardio Rate: regular rate Rhythm: regular rhythm Results AMB Rapid Strep AMB Rapid Strep Positive Last Edit by Hardeep Sherman CMA on 07/19/23 13 :30 Results Reviewed Results Reviewed: Laboratory Last Values Strep Scn [facility] Positive 07/19/23 13:29 Assessment & Plan Assessment & Plan (1) Acute pharyngitis: Code(s): J02.9 - Acute pharyngitis, unspecified Qualifiers: Pharyngitis/tonsillitis etiology: other specified organisms Qualified Code(s): J02.8 - Acute pharyngitis due to other specified organisms Plan: - rapid strep positive - rxd PCN to Pharmacy - Advised to change tooth brush after Tx completed. - Warm water with salt - Warm fluids with Honey - Rest Orders: Orders AMB Rapid Strep Screen Today Z13.9 - Encounter for screening, unspecified SARS-CoV2/FLU/RSV Today J02.9 - Acute pharyngitis, unspecified Medications: New benzonatate 100 mg PO TID 30 caps 0RF penicillin V potassium 500 mg PO BID 10 days 20 tabs 0RF Coding Level of Care Code Est Pt Level 3 (88383) Diagnoses Acute pharyngitis due to other specified organisms J02.8 Pharyngitis/tonsillitis etiology: other specified organisms Time Spent (min) 15
== END 2023-07-19 13:46 | disposition home or self-care (01) ==
PROVIDERS: PCP Nurse Practitioner Family; Visit Provider Nurse Practitioner Family
DX: J02.9 Acute pharyngitis, unspecified (principal)
CPT/HCPCS: 87880; 99213

== ENCOUNTER 2023-07-19 17:08 | Outpatient (REF) | payer OTHER, SELFPAY ==
[2023-07-19 18:03] LABS: Influenza A PCR NEGATIVE (Negative); Influenza B PCR NEGATIVE (Negative); Resp Syncy Virus RNA Qual PCR NEGATIVE (Negative); SARS COV2 PCR INHOUSE NEGATIVE (Negative)
== END 2023-07-19 17:09 | disposition home or self-care (01) ==
LOC: HO.LNP 17:08
PROVIDERS: Visit Provider Nurse Practitioner Family
DX: J02.9 Acute pharyngitis, unspecified (principal); Z11.52 Encounter for screening for COVID-19
CPT/HCPCS: 0241U

== ENCOUNTER 2023-08-03 17:10 | Emergency (ER) | payer OTHER, SELFPAY ==
--- NOTE | ~2023-08-03 | US_ITS ---
EXAMINATION: US VENOUS ULTRASOUND WITH DOPPLER LOWER EXTREMITY, RIGHT CLINICAL INFORMATION: Swelling COMPARISON: None available. TECHNIQUE: Ultrasound of the deep veins is performed from the hip to the calf with compression sonography and color and pulse Doppler assessment. Spectral analysis with color-flow imaging is performed. FINDINGS: There is normal venous compression and respiratory variation and augmented flow. The visualized common femoral vein, superficial femoral vein, profunda femoral vein, popliteal vein, and the trifurcation region shows no evidence of deep venous thrombosis. There is a popliteal cyst 4 x 2 x 1.5 cm. If the patient's symptoms persist, followup ultrasound in 5 days 7 days might be of value to exclude proximal propagation from a non-visualized calf vein. US/US venous duplex LE RT IMPRESSION: 1. No DVT demonstrated in the right lower extremity. 2. Popliteal cyst 4 cm.
[2023-08-03 17:33] VITALS: BP 112/88; PULSE 100; RESP 18; TEMP 36.9; O2SAT 100; BMI 35.2
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
[2023-08-03 18:47] LABS: MANUAL DIFF FLAG NO
[2023-08-03 18:51] LABS: Basophils Percent Auto 0.5 % (0-2); Eosinophils Percent Auto 0.5 % (0-4); Hematocrit 41.3 % (37.0-47.0); Hemoglobin 13.9 g/dl (12.0-16.0); Imm Gran Abs Auto 0.02 X10*3/uL (0.00-0.03); Imm Gran Pct Auto 0.2 % (0.0-0.4); Lymphocytes Absolute Auto 2.3 X10*3/uL (1.2-4.9); Lymphocytes Percent Auto 26.3 % (20-40); Mean Corpuscular HGB Conc 33.7 g/dl (31.0-35.0); Mean Corpuscular Hemoglobin 27.7 pg (27.0-33.0); Mean Corpuscular Volume 82.4 fL (80.0-98.0); Mean Platelet Volume 9.8 fL (9.4-12.3); Monocytes Absolute Auto 0.5 X10*3/uL (0.1-1.2); Monocytes Percent Auto 5.4 % (2-11); Neutrophils Absolute Auto 5.9 x10*3/uL (2.0-8.3); Neutrophils Percent Auto 67.1 % (45-73); Platelet Count 357 X10*3/uL (160-400); Red Blood Count 5.01 X10*6/uL (4.20-5.50); Red Cell Distribution Width 12.5 % (11.0-16.0); White Blood Count 8.8 X10*3/uL (4.8-10.8)
[2023-08-03 19:02] LABS: Alanine Aminotransferase 9 U/L (0-31); Alkaline Phosphatase 100 U/L (39-117); Anion Gap 10 (12-20); Aspartate Amino Transferase 13 U/L (5-31); Bilirubin Total 0.2 mg/dL (0.0-1.0); Blood Urea Nitrogen 10 mg/dL (9-16); Calcium 9.3 mg/dL (8.4-10.2); Carbon Dioxide 26 mmol/L (22-29); Chloride 106 mmol/L (96-108); Creatinine Clr Calc Pharmacy 111.2; Estimated Glomerular Filt Rate > 60; Glucose Random 110 mg/dL (60-115); Magnesium 1.9 mg/dL (1.6-2.6); Potassium 3.8 mmol/L (3.3-5.1); Sodium 138 mmol/L (135-145); Total Protein 7.7 g/dL (6.5-8.0)
[2023-08-03 19:34] VITALS: BP 122/81; PULSE 81; RESP 18; TEMP 36.9; O2SAT 100
--- NOTE | 2023-08-03 20:00 | PC.NURSE ---
Pt brought back from waiting room, awaiting provider at this time. reports right leg hurts more than the left but has discomfort bilaterally. reports the right leg has been in pain more for about three weeks now. Able to ambulate with slow steady gait, respirations even and unlabored, no apparent distress at this time
[2023-08-03] MEDS: traMADoL HCL 50 MG TABLET PO (21:29)
== END 2023-08-03 22:02 | disposition home or self-care (01) ==
PROVIDERS: Physician Assistant Medical; Emergency Provider Emergency Medicine; PCP Nurse Practitioner Family
DX: S89.91XA Unspecified injury of right lower leg, initial encounter (principal); R60.0 Localized edema; F17.210 Nicotine dependence, cigarettes, uncomplicated; Y04.2XXA Assault by strike against or bumped into by another person, initial encounter; Y93.9 Activity, unspecified; Y92.9 Unspecified place or not applicable; Y99.8 Other external cause status; Z79.899 Other long term (current) drug therapy
CPT/HCPCS: 29505; 36415; 80053; 83735; 85025; 93971; 99284

== ENCOUNTER 2023-08-17 13:41 | Outpatient (AMB) | payer OTHER, SELFPAY ==
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
[2023-08-17 14:05] VITALS: BMI 35.1
== END 2023-08-17 14:24 | disposition home or self-care (01) ==
PROVIDERS: PCP Nurse Practitioner Family; Visit Provider Physician Assistant
DX: M23.91 Unspecified internal derangement of right knee (principal)
CPT/HCPCS: 99213

== ENCOUNTER 2023-08-17 16:08 | Outpatient (REF) | payer OTHER, SELFPAY ==
--- NOTE | ~2023-08-17 | XR_ITS ---
EXAMINATION: XR KNEE, RIGHT XR KNEE AP STANDING, BILATERAL CLINICAL INFORMATION: Bilateral knee pain. COMPARISON: X-ray left tibia-fibula 03/26/2023, bilateral knees 08/30/2016. TECHNIQUE: AP standing view of bilateral knees. Lateral and sunrise views of the right knee. FINDINGS: RIGHT KNEE: Redemonstration of mild erosions along the medial aspect of the tibial plateau. Mild medial joint space narrowing. Small to moderate joint effusion. Tiny posterior patellar osteophytes. LEFT KNEE: Single AP standing view demonstrates minimal medial and lateral marginal osteophytes. Redemonstration of previously noted marginal erosions along the medial and lateral tibial plateau as noted on 08/30/2016. Mild medial joint space narrowing. XR/XR knee standing BI IMPRESSION: Redemonstration of mild degenerative changes in the bilateral knees. Redemonstration of chronic erosions at the bilateral tibial plateaus, previously stated to be compatible with given history of JRA. Correlation with clinical history and exam recommended for confirmation.
--- NOTE | ~2023-08-17 | XR_ITS ---
EXAMINATION: XR KNEE, RIGHT XR KNEE AP STANDING, BILATERAL CLINICAL INFORMATION: Bilateral knee pain. COMPARISON: X-ray left tibia-fibula 03/26/2023, bilateral knees 08/30/2016. TECHNIQUE: AP standing view of bilateral knees. Lateral and sunrise views of the right knee. FINDINGS: RIGHT KNEE: Redemonstration of mild erosions along the medial aspect of the tibial plateau. Mild medial joint space narrowing. Small to moderate joint effusion. Tiny posterior patellar osteophytes. LEFT KNEE: Single AP standing view demonstrates minimal medial and lateral marginal osteophytes. Redemonstration of previously noted marginal erosions along the medial and lateral tibial plateau as noted on 08/30/2016. Mild medial joint space narrowing. XR/XR knee RT 2V IMPRESSION: Redemonstration of mild degenerative changes in the bilateral knees. Redemonstration of chronic erosions at the bilateral tibial plateaus, previously stated to be compatible with given history of JRA. Correlation with clinical history and exam recommended for confirmation.
== END 2023-08-17 16:09 | disposition home or self-care (01) ==
LOC: HO.HOSX 16:08
PROVIDERS: Visit Provider Physician Assistant
DX: M25.561 Pain in right knee (principal); M25.562 Pain in left knee; M23.91 Unspecified internal derangement of right knee
CPT/HCPCS: 73560; 73565; 99212

== ENCOUNTER 2023-08-29 20:05 | Outpatient (REF) | payer OTHER, SELFPAY ==
--- NOTE | ~2023-08-29 | MR_ITS ---
EXAMINATION: MR KNEE WITHOUT CONTRAST, RIGHT CLINICAL INFORMATION: Right shoulder pain and swelling. Fibromyalgia. Internal derangement. COMPARISON: Most recent right knee radiographs dated 08/17/2023. TECHNIQUE: MRI of the knee without contrast was performed using routine sequences on a high-field scanner. FINDINGS: MENISCI: Medial Meniscus: Medial extrusion of the meniscal body with tibial articular surface fraying/tearing along the anterior horn with blunting of the meniscal body inner margin. Lateral Meniscus: Intact LIGAMENTS: Cruciate: Intact Collateral: Intact EXTENSOR MECHANISM: Intact ARTICULAR CARTILAGE/BONE: Patellofemoral Compartment: Intact articular cartilage. Medial Compartment: Tiny marginal osteophytes. Lateral Compartment: Intact articular cartilage. JOINT FLUID AND BURSAE: Moderate joint effusion and small Caldwell's cyst with mild synovitis. MR/MR knee RT wo con IMPRESSION: 1. Medial extrusion of the meniscal body with tibial articular surface fraying/tearing along the anterior horn and inner margin blunting of the meniscal body. 2. Moderate joint effusion and small Caldwell's cyst with mild synovitis. 3. Minimal medial compartment arthrosis.
== END 2023-08-29 20:06 | disposition home or self-care (01) ==
LOC: HO.MRI 20:05
PROVIDERS: PCP Nurse Practitioner Family; Visit Provider Physician Assistant
DX: M23.91 Unspecified internal derangement of right knee (principal)
CPT/HCPCS: 73721

== ENCOUNTER 2023-08-30 07:33 | Outpatient (AMB) | payer OTHER, SELFPAY ==
[2023-08-30 07:38] VITALS: BP 104/66; PULSE 85; O2SAT 98; BMI 35.1
--- NOTE | 2023-08-30 07:38 | MHC.PC.OV ---
Vital Signs 08/30/23 07:38 Height 5 ft 1 in Weight 186 lb BMI 35.1 BP 104/66 Blood Pressure Location Rt brachial Position Sitting Pulse 85 Pulse Source Pulse Oximeter Pulse Oximetry (%) 98 Oxygen Delivery Method Room Air Intake Visit Reasons: PE Intake Note: Pt is here today for PE. Allergies No Known Allergies [No Known Allergies*] Allergy (Unknown, Verified 08/17/23 14:12) N.K.D.A. Allergy (Unknown, Uncoded 08/30/23 07:40) unknown Medication List - Last Reconciled 08/30/23 by TIFFANY Dill cyclobenzaprine 10 mg PO BID 30 days ibuprofen 800 mg PO Q8H PRN Tobacco use date assessed: 08/30/23 Dental Screening Dental Screen Date: 08/30/23 Did you have a dental visit in the last 12 months?: Yes Did you have a dental problem in the last 6 months where you did not have access to dental care?: No Was dental information given to patient?: Patient has dentist HPI PE HPI Details Pt is here for a PE. Will order labs. 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 Injured right knee, seeing ortho currently. Anxiety and depression: pt refuses a therapist, reported citalopram worked well. Will send, denies any SI or HI. Will follow up with pt. [facility] Surgical History Hx of tubal ligation Hx of section Family History Mother Mental health disorder Father Substance use disorder Mental health disorder Sister Substance use disorder Mental health disorder Maternal Aunt Mental health disorder Social History Housing: Condominium Patient Tobacco Use Status: Current everyday Tobacco user Cigarettes Per Day: 2 e-Cigarette/Vaping Use: Never Used Second Hand Smoke Exposure: No Current occupational status: employed Current occupation: [employer] Current occupational exposures/hazards: No Cognitive needs: No Hearing needs: No Vision needs: No Questionnaire PHQ-9 Over the last 2 weeks, how often have you been bothered by any of the following problems? 1. Little interest or pleasure in doing things: nearly every day 2. Feeling down, depressed, or hopeless: nearly every day 3. Trouble falling or staying asleep, or sleeping too much: nearly every day 4. Feeling tired or having little energy: nearly every day 5. Poor appetite or overeating: nearly every day 6. Feeling bad about yourself - or that you are a failure or have let yourself or your family down: more than half the days 7. Trouble concentrating on things, such as reading the newspaper or watching television: nearly every day 8. Moving or speaking so slowly that other people could have noticed. Or the opposite - being so fidgety or restless that you have been moving around a lot more than usual: nearly every day 9. Thoughts that you would be better off or of hurting yourself in some way: several days Total score: 24 Depression Screening Interpretation: Positive (refuses therapy) Depression Screening Follow-up: Existing condition and New Medication prescribed Depression Screening Done: Yes 32114 - PHQ-9 Billing: Yes Source: Developed by Drs. Unruly Villagomez, Ingris Jalloh, John Chanel and colleagues, with an educational alina from [employer]. Thrive Questionnaire Date Thrive assessed: 08/30/23 I am a: Patient What is your living situation today?: I choose not to answer this question Within the past 12 months, did the food you bought not last and you didn't have the money to get more?: I choose not to answer this question Within the past 12 months, did you worry whether your food would run out before you got money to buy more?: I choose not to answer this question Do you have trouble paying for medicines?: I choose not to answer this question Do you have trouble getting transportation to medical appointments?: I choose not to answer this question Do you have trouble paying your heating and electricity bill?: I choose not to answer this question Do you have trouble taking care of your child, family member or friend?: I choose not to answer this question Do you have trouble with day-to-day activities such as bathing, preparing meals, shopping, managing finances, etc.?: I choose not to answer this question Are you currently unemployed and looking for a job?: I choose not to answer this question Are you interested in more education?: I choose not to answer this question Currently or been in a relationship where the following occur: I choose not to answer this question THRIVE Score: 0 AUDIT C Alcohol Use Questionnaire (AUDIT-C) 1. How often do you have a drink containing alcohol?: Monthly or less 2. How many drinks containing alcohol do you have on a typical day when you are drinking?: 1 or 2 3. How often do you have six or more drinks on one occasion?: Never Total Score: 1 Score Reviewed/Action Taken: No KOLBY-7 AMB Questionnaire KOLBY-7 Date KOLBY - 7 assessed: 08/30/23 Feeling nervous, anxious, or on edge: 3 = Nearly every day Not being able to stop or control worryin = Nearly every day Worrying too much about different things: 3 = Nearly every day Trouble relaxin = Nearly every day Being so restless that it is hard to sit still: 3 = Nearly every day Becoming easily annoyed or irritable: 3 = Nearly every day Feeling afraid as if something awful might happen: 0 = Not at all Total KOLBY-7 score (0-4 normal; 5-9 mild; 10-14 moderate; 15-21 severe): 18 Source: Developed by Drs. Unruly Villagomez, Ingris Jalloh, John Chanel and colleagues, with an educational alina from [employer]. KOLBY-7 Assessment Billing KOLBY-7 Assessment Tool: KOLBY-7 Assessment 21859 Review of Systems Const Denies chills and Denies fever(s) Eyes Denies blurry vision ENT Denies vertigo, Denies dizziness and Denies sore throat Card Denies chest pain at rest, Denies chest pain with activity, Denies diaphoresis, Denies dyspnea and Denies dyspnea on exertion Resp Denies cough, Denies dyspnea, Denies dyspnea on exertion and Denies wheezing GI Denies abdominal pain, Denies melena, Denies hematochezia, Denies constipation, Denies diarrhea and Denies loose stools Denies hematuria Musc Denies numbness and Denies tingling Skin/Breast Denies lesions Neuro Denies vertigo, Denies dizziness, Denies numbness and Denies tingling Psych Reports anxiety, Reports depression, Denies homicidal ideation, Denies suicidal ideation and Denies other (substance abuse) Aller/Immun Denies wheezing Physical exam (Primary Care) Vital Signs: Last Vital Signs Pulse 85 08/30/23 07:38 BP 104/66 08/30/23 07:38 Pulse Ox 98 08/30/23 07:38 Oxygen Delivery Method Room Air 08/30/23 07:38 BMI result Body Mass Index 35.1 Tobacco/Smoking Status: Tobacco use Status Tobacco use date assessed 04/04/23 08/30/23 07:43 Patient Tobacco Use Status Current everyday Tobacco 08/30/23 07:43 e-Cigarette/Vaping Use Never Used 08/30/23 07:43 Depression Screening Interpretation: Positive (refuses therapy) Depression Screening Follow-up: Existing condition and New Medication prescribed Thrive Assessment: Date of Thrive Assessment Date Thrive assessed 05/10/21 08/30/23 07:43 Currently or been in a relationship where the following occur: I choose not to answer this question Const General: cooperative Nutritional Appearance: obese Orientation/consciousness: patient oriented x3 HENMT Head: Yes normal to inspection, Yes normocephalic and Yes atraumatic Ears: TM's normal bilaterally Eyes General: appearance normal, both eyes and all related structures Alignment and Position: alignment normal and position normal Neck Neck: Yes normal visual inspection and Yes no lymphadenopathy Thyroid: Thyroid normal Resp Effort & Inspection: normal respiratory effort Auscultation: clear to auscultation bilaterally Cardio Rate: regular rate Rhythm: regular rhythm Heart sounds: S1 normal heart sound present, S2 normal heart sound present and no murmurs GI Palpation (GI): Soft to palpation and nontender Auscultation: normal bowel sounds Skin Rashes: no rashes Neuro General: patient oriented x3, moves all extremities, no focal motor deficits and deep tendon reflexes 2+ bilaterally Romberg Test: Negative Extrem Other: right knee brace present, pain to medial aspect with weight bearing Psych Appearance: grossly normal Mental Status: mental status grossly normal Speech and movement: Normal speech and movement present Affect: normal affect Attitude: cooperative Thought process: Normal thought process present Thought content: Normal thought content present Insight: Good insight present (Psych) Judgement: Good judgement present (Psych) Assessment and Plan Assessment & Plan (1) Physical exam: Code(s): Z00.00 - Encounter for general adult medical examination without abnormal findings (2) Anxiety and depression: Code(s): F41.9 - Anxiety disorder, unspecified; F32.A - Depression, unspecified Plan The patient agreed to the use of a center medical and lab director for this encounter. Scribed for TONY Mason by Bessy Ba center medical and lab director, on 08/30/2023 at 07:45 EST. Orders: Orders Comprehensive [place]. Panel Fast Today Z00.00 - Encounter for general adult medical examination without abnormal findings UA CC w/rflx Micro + Cult Today Z00.00 - Encounter for general adult medical examination without abnormal findings Complete Blood Count Auto Diff Today Z00.00 - Encounter for general adult medical examination without abnormal findings TSH reflex Free T4 Today Z00.00 - Encounter for general adult medical examination without abnormal findings Lipid Panel Today Z00.00 - Encounter for general adult medical examination without abnormal findings Medications: New citalopram 20 mg PO DAILY 90 days 90 tabs 0RF Coding Level of Care Code Est Pt Prev Care 18-39y(96736) Diagnoses Physical exam Z00.00 Anxiety and depression F41.9; F32.A Additional Codes KOLBY-7 Assessment Billing - KOLBY-7 Assessment Tool: KOLBY-7 Assessment 30051 ([id number])
== END 2023-08-30 08:12 | disposition home or self-care (01) ==
PROVIDERS: PCP Nurse Practitioner Family; Visit Provider Nurse Practitioner Family
DX: Z00.00 Encounter for general adult medical examination without abnormal findings (principal); F41.9 Anxiety disorder, unspecified; F32.A Depression, unspecified
CPT/HCPCS: 96127; 99395

== ENCOUNTER 2023-09-17 09:17 | Outpatient (AMB) | payer OTHER, SELFPAY ==
[2023-09-17 09:19] VITALS: BMI 35.1
--- NOTE | 2023-09-17 09:19 | MHC.OFFVIS ---
Intake Vital Signs 09/17/23 09:19 Height 5 ft 1 in Weight 186 lb BMI 35.1 Intake Visit Reasons: OV-MRI Knee RT-follow up Intake Note: Chika is a 38 year old female who presents today for an MRI review of the right knee. Patient reports that she is doing well, some days are more painful than others. She continues to wear her playmaker brace. She was given prednisone by her pcp for a rash but this has significantly helped her pain. Allergies No Known Allergies [No Known Allergies*] Allergy (Unknown, Verified 09/17/23 09:21) N.K.D.A. Allergy (Unknown, Uncoded 09/17/23 09:21) unknown Do you need a note to return to daycare/school/sports/work: Yes (3 hours a day for one month.) HPI OV-MRI Knee RT-follow up HPI Details Chika is a 38 year old female who presents today for an MRI review of the right knee. Patient reports that she is doing well, some days are more painful than others. She continues to wear her playmaker brace. She was given prednisone by her pcp for a rash but this has significantly helped her pain. She doesn't recall exactly how her right knee was injured. Now she describes pain in the entire knee and pain with daily activity. It localizes more the medial then anywhere else [facility] Surgical History Hx of tubal ligation Hx of section Family History Mother Mental health disorder Father Substance use disorder Mental health disorder Sister Substance use disorder Mental health disorder Maternal Aunt Mental health disorder Social History Housing: Condominium Patient Tobacco Use Status: Current everyday Tobacco user Cigarettes Per Day: 2 e-Cigarette/Vaping Use: Never Used Second Hand Smoke Exposure: No Current occupational status: employed Current occupation: [employer] Current occupational exposures/hazards: No Cognitive needs: No Hearing needs: No Vision needs: No Physical Exam Vital Signs: BMI result Body Mass Index 35.1 Const General: cooperative, healthy appearing, no acute distress, well developed and alert HEENT Head: Yes normal to inspection, Yes normocephalic and Yes atraumatic Mouth: moist mucous membranes Eyes General: appearance normal, both eyes and all related structures EOM: EOMs intact bilaterally Chest Other: no audible wheezing. Resp Other: No audible wheezing Effort & Inspection: normal respiratory effort Back/Spine/Pelvis Cervical Spine: normal cervical lordosis Skin General skin exam: no rashes or lesions noted Neuro General: no focal motor deficits Extrem Other: 0-125 trace effusion TTP medial joint line neg Steinmen's stable to v/v stress lateral retropatellar TTP Psych Appearance: grossly normal and well kempt Mental Status: mental status grossly normal Speech and movement: Normal speech and movement present Affect: normal affect Attitude: cooperative Results Reviewed Results Reviewed: I personally reviewed the MR images. 08/03/23 Right Knee MRI IMPRESSION: 1. Medial extrusion of the meniscal body with tibial articular surface fraying/tearing along the anterior horn and inner margin blunting of the meniscal body. 2. Moderate joint effusion and small Caldwell's cyst with mild synovitis. 3. Minimal medial compartment arthrosis. Assessment & Plan Assessment & Plan (1) Internal derangement of right knee: Code(s): M23.91 - Unspecified internal derangement of right knee Plan: This is a 38 yo F with right knee pain and medial meniscal extrusion without focal tearing on MRI. 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 I do not recommend surgical intervention . I recommend strengthening exercises ( she does not want to do formal PT). An injection would be helpful but she is frightened of that. I wrote her a work to retunn to work gradually and I will refer ther to Rheumatology. A exercise handout was given. Coding Level of Care Code New Pt Level 4 (05141) Diagnoses Internal derangement of right knee M23.91
== END 2023-09-17 09:49 | disposition home or self-care (01) ==
PROVIDERS: PCP Nurse Practitioner Family; Visit Provider Orthopaedic Surgery
DX: M23.91 Unspecified internal derangement of right knee (principal)
CPT/HCPCS: 99203

== ENCOUNTER → 2023-09-17 09:17 | Outpatient (BNVA) | payer OTHER, SELFPAY | PROVIDERS: PCP Nurse Practitioner Family; Visit Provider Orthopaedic Surgery | DX: M23.91 Unspecified internal derangement of right knee (principal) | CPT/HCPCS: 99202 ==

== ENCOUNTER 2023-10-24 09:06 | Outpatient (AMB) | payer OTHER, SELFPAY ==
[2023-10-24 09:26] VITALS: BP 116/80; PULSE 91; TEMP 36.6; O2SAT 99; BMI 35.9
--- NOTE | 2023-10-24 09:26 | MHC.OFFWIV ---
Intake Vital Signs 10/24/23 09:26 Height 5 ft 1 in Weight 190 lb BMI 35.9 BP 116/80 Blood Pressure Location Lt brachial Position Sitting Pulse 91 Pulse Source Pulse Oximeter Temp 97.8 F Temp Source Temporal Artery Scan Pulse Oximetry (%) 99 Oxygen Delivery Method Room Air Intake Visit Reasons: EP Bilateral shoulder pain [phone] Intake Note: pt is here bilateral shoulder pain started months ago Patient Tobacco Use Status: Current everyday Tobacco user Allergies No Known Allergies [No Known Allergies*] Allergy (Unknown, Verified 10/24/23 09:27) N.K.D.A. Allergy (Unknown, Uncoded 09/17/23 09:21) unknown Do you need a note to return to daycare/school/sports/work: No HPI HPI Comments History of Present Illness Details She presents to office with shoulder pain She has hx of fibrolyalgia and arthritis States current pain is consistent with chronic pain Has had onging R leg cruz's cyst x 9 month which she was seen in ER, ortho and awaiting rheumatology appointment Last saw PCP in august She takes Ibuprofen and cyclobenzaprine for pain and said not helping She had Rheumatology appointment tomorrow but it was rescheduled to December 19 States shoulders hurt today after blow drying hair last night Pain currently in shoulders, hands, knees/legs Pt said she has urge incontinence with urine; no dysuria or hematuria States due to body pains has hard time making it to the restroom. No abdominal pain, chest pain or SOB Noticed symptoms after she exerts herself PFSH Surgical History Hx of tubal ligation Hx of section Family History Mother Mental health disorder Father Substance use disorder Mental health disorder Sister Substance use disorder Mental health disorder Maternal Aunt Mental health disorder Social History Housing: Condominium Patient Tobacco Use Status: Current everyday Tobacco user Cigarettes Per Day: 2 e-Cigarette/Vaping Use: Never Used Second Hand Smoke Exposure: No Current occupational status: employed Current occupation: [employer] Current occupational exposures/hazards: No Cognitive needs: No Hearing needs: No Vision needs: No Review of Systems Const Reports body aches, Denies chills and Denies fever(s) ENT Denies dry mouth Card Denies chest pain and Denies dyspnea Resp Denies cough and Denies dyspnea GI Denies abdominal pain Musc Reports back pain, Reports myalgias and Denies tingling Skin/Breast Denies erythema and Denies rash Neuro Denies tingling Physical Exam Vital Signs: Last Vital Signs Temp 97.8 F 10/24/23 09:26 Pulse 91 10/24/23 09:26 BP 116/80 10/24/23 09:26 Pulse Ox 99 10/24/23 09:26 Oxygen Delivery Method Room Air 10/24/23 09:26 BMI result Body Mass Index 35.9 General: Non-toxic, NAD. Speaking full sentences. Skin: Warm dry throughout. No erythema to joints or notable edema. No lower leg edema/pitting edema Eye: EOMI HENT: Bilateral canals clear. TM non-erythematous, non-bulging. No TM perforation or hemotympanum noted. Respiratory: CTA bilaterally. No wheezes, rales or rhonchi Cardiac: RRR. No murmur MSK: No midline spinal tenderness to palpation. Diffuse non-specific tenderness to palpation of shoulders near lateral humerus/AV joint. No whincing with palpation of trapezii bilaterally. Gait stable. Tenderness to palpation R knee. Neuro: A/O x 3. No facial droop or aphasia. Psych: Good mood and affect Assessment & Plan Assessment & Plan (1) Trapezius muscle spasm: Code(s): M62.838 - Other muscle spasm Plan: Patient seen and evaluated. 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 We discussed ER s/s. No concern joint infection at this time Patient gave verbal understanding and had no additional questions or concerns at time of discharge All questions answered Note sent to ale Medications: New meloxicam 7.5 mg PO DAILY 14 tabs 0RF Coding Level of Care Code Est Pt Level 3 (54054) Diagnoses Trapezius muscle spasm M62.838
== END 2023-10-24 10:44 | disposition home or self-care (01) ==
PROVIDERS: PCP Nurse Practitioner Family; Visit Provider Physician Assistant
DX: M62.838 Other muscle spasm (principal)
CPT/HCPCS: 99213

== ENCOUNTER 2023-11-14 07:07 | Outpatient (REF) | payer OTHER, SELFPAY ==
[2023-11-14 10:22] LABS: MANUAL DIFF FLAG NO
[2023-11-14 10:37] LABS: Basophils Percent Auto 0.5 % (0-2); Eosinophils Absolute Auto 0.1 X10*3/uL (0.0-0.4); Eosinophils Percent Auto 1.9 % (0-4); Hemoglobin 13.2 g/dl (12.0-16.0); Imm Gran Abs Auto 0.02 X10*3/uL (0.00-0.03); Imm Gran Pct Auto 0.3 % (0.0-0.4); Lymphocytes Percent Auto 32.4 % (20-40); Mean Corpuscular HGB Conc 32.2 g/dl (31.0-35.0); Mean Corpuscular Hemoglobin 26.9 pg (27.0-33.0); Mean Corpuscular Volume 83.7 fL (80.0-98.0); Mean Platelet Volume 10.5 fL (9.4-12.3); Monocytes Absolute Auto 0.4 X10*3/uL (0.1-1.2); Neutrophils Absolute Auto 3.6 x10*3/uL (2.0-8.3); Neutrophils Percent Auto 57.9 % (45-73); Platelet Count 325 X10*3/uL (160-400); Red Cell Distribution Width 12.8 % (11.0-16.0); White Blood Count 6.2 X10*3/uL (4.8-10.8)
[2023-11-14 10:56] LABS: Alanine Aminotransferase 7 U/L (0-31); Albumin Level 3.7 g/dL (3.5-5.0); Alkaline Phosphatase 90 U/L (39-117); Anion Gap 11 (12-20); Aspartate Amino Transferase 13 U/L (5-31); Bilirubin Total 0.4 mg/dL (0.0-1.0); Blood Urea Nitrogen 7 mg/dL (9-16); Calcium 8.9 mg/dL (8.4-10.2); Carbon Dioxide 23 mmol/L (22-29); Chloride 107 mmol/L (96-108); Cholesterol 172 mg/dL (<200); Estimated Glomerular Filt Rate > 60; Glucose Fasting 100 mg/dL (60-99); HDL Cholesterol 43 mg/dL (>40); LDL Cholesterol Calculated 113 mg/dL (<100); Potassium 3.4 mmol/L (3.3-5.1); Sodium 138 mmol/L (135-145); Total Protein 7.1 g/dL (6.5-8.0); Triglycerides 82 mg/dL (<150)
[2023-11-14 11:18] LABS: TSH reflex Free T4 0.87 uIU/mL (0.32-4.0)
[2023-11-14 13:37] LABS: Appearance Urine Cloudy; Color Urine Yellow; Glucose Urine UA Negative (Negative); Leukocyte Esterase Urine Negative (Negative); Nitrite Urine Negative (Negative); PH 7.5 (5.0-9.0); Specific Gravity - Urine 1.025 (1.005-1.025); Urine Blood Negative (Negative); Urine Ketones Negative (Negative); Urine Protein Trace mg/dL (Neg-Trace)
== END 2023-11-14 07:08 | disposition home or self-care (01) ==
LOC: HO.HMGCLDS 07:07
PROVIDERS: PCP Nurse Practitioner Family; Visit Provider Nurse Practitioner Family
DX: Z00.00 Encounter for general adult medical examination without abnormal findings (principal); M79.676 Pain in unspecified toe(s); G89.29 Other chronic pain
CPT/HCPCS: 36415; 80053; 80061; 81003; 84443; 84550; 85025

== ENCOUNTER 2023-11-28 09:10 | Outpatient (AMB) | payer OTHER, SELFPAY ==
[2023-11-28 09:11] VITALS: BP 102/62; PULSE 80; O2SAT 99; BMI 34.8
--- NOTE | 2023-11-28 09:11 | A.OFFPC_ITS ---
Vital Signs 11/28/23 09:11 Height 5 ft 1 in Weight 184 lb BMI 34.8 BP 102/62 Blood Pressure Location Rt brachial Position Sitting Pulse 80 Pulse Source Pulse Oximeter Pulse Oximetry (%) 99 Oxygen Delivery Method Room Air Intake Visit Reasons: urinary incontinence, hair loss Intake Note: pt is here for urinary incontinence also concern for hair loss Allergies No Known Allergies [No Known Allergies*] Allergy (Unknown, Verified 11/28/23 09:38) N.K.D.A. Allergy (Unknown, Uncoded 11/28/23 09:38) unknown Medication List - Last Reconciled 11/28/23 by TIFFANY Dill cyclobenzaprine 10 mg PO BID 30 days meloxicam 7.5 mg PO DAILY 30 days Tobacco use date assessed: 08/30/23 Dental Screening Dental Screen Date: 08/30/23 HPI urinary incontinence, hair loss HPI Details Pt reports hair loss. She reports recently noticing a singular bald spot on her head. Will order labs and refer to derm. ? Alopecia areata. Pt reports increased depression. She reports that she has been drinking alcohol frequently. She is under a lot of stress. Pt is interested in seeing a therapist, will have team speak with pt. Denies any SI and HI. PFSH Surgical History Hx of tubal ligation Hx of section Family History Mother Mental health disorder Father Substance use disorder Mental health disorder Sister Substance use disorder Mental health disorder Maternal Aunt Mental health disorder Social History Housing: Condominium Patient Tobacco Use Status: Current everyday Tobacco user Cigarettes Per Day: 2 e-Cigarette/Vaping Use: Never Used Second Hand Smoke Exposure: No Current occupational status: employed Current occupation: [employer]) Current occupational exposures/hazards: No Cognitive needs: No Hearing needs: No Vision needs: No Questionnaire PHQ-9 Over the last 2 weeks, how often have you been bothered by any of the following problems? 25275 - PHQ-9 Billing: Patient declined-do not bill Source: Developed by Drs. Unruly LIngris Gan Kurt Kroenke and colleagues, with an educational alina from [employer]. Thrive Questionnaire Date Thrive assessed: 08/30/23 KOLBY-7 AMB Questionnaire KOLBY-7 Date KOLBY - 7 assessed: 08/30/23 Source: Developed by Ingris Whitaker Kurt Kroenke and colleagues, with an educational alina from [employer]. KOLBY-7 Assessment Billing KOLBY-7 Assessment Tool: pt declined-do not bill Review of Systems Const Reports as per HPI Physical exam (Primary Care) Vital Signs: Last Vital Signs Pulse 80 11/28/23 09:11 BP 102/62 11/28/23 09:11 Pulse Ox 99 11/28/23 09:11 Oxygen Delivery Method Room Air 11/28/23 09:11 BMI result Body Mass Index 34.8 Tobacco/Smoking Status: Tobacco use Status Tobacco use date assessed 08/30/23 11/28/23 09:13 Patient Tobacco Use Status Current everyday Tobacco 11/28/23 09:13 e-Cigarette/Vaping Use Never Used 11/28/23 09:13 Thrive Assessment: Date of Thrive Assessment Date Thrive assessed 08/30/23 11/28/23 09:13 Const General: cooperative Nutritional Appearance: obese Orientation/consciousness: patient oriented x3 Resp Effort & Inspection: normal respiratory effort Auscultation: clear to auscultation bilaterally Cardio Rate: regular rate Rhythm: regular rhythm Heart sounds: S1 normal heart sound present and S2 normal heart sound present Skin Other: vertex of head with singular circular bald spot . Neuro General: patient oriented x3 Psych Appearance: grossly normal Mental Status: mental status grossly normal Speech and movement: Normal speech and movement present Affect: normal affect Attitude: cooperative Thought process: Normal thought process present Thought content: Normal thought content present Insight: Good insight present (Psych) Judgement: Good judgement present (Psych) Assessment and Plan Assessment & Plan (1) Hair loss: Code(s): L65.9 - Nonscarring hair loss, unspecified Plan: labs ordered, and will refer to derm (2) Anxiety and depression: Code(s): F41.9 - Anxiety disorder, unspecified; F32.A - Depression, unspecified Plan: jai Rao) will speak with pt. Plan The patient agreed to the use of a medical office assistant instructor for this encounter. Scribed for Orlando Lara, [facility]- by Bessy Ba medical office assistant instructor, on 11/28/2023 at 09:25 EST. Orders: Orders Complete Blood Count Auto Diff Today L65.9 - Nonscarring hair loss, unspecified Vitamin B12 and Folate Today L65.9 - Nonscarring hair loss, unspecified IRON PROFILE Today L65.9 - Nonscarring hair loss, unspecified Vitamin D 25-OH Total Today L65.9 - Nonscarring hair loss, unspecified Comprehensive Met. Panel Today L65.9 - Nonscarring hair loss, unspecified TSH reflex Free T4 Today L65.9 - Nonscarring hair loss, unspecified Ferritin Today L65.9 - Nonscarring hair loss, unspecified Referrals Dermatology Referral L65.9 - Nonscarring hair loss, unspecified Coding Level of Care Code Est Pt Level 3 (32109) Diagnoses Hair loss L65.9 Anxiety and depression F41.9; F32.A
== END 2023-11-28 10:16 | disposition home or self-care (01) ==
PROVIDERS: PCP Nurse Practitioner Family; Visit Provider Nurse Practitioner Family
DX: L65.9 Nonscarring hair loss, unspecified (principal); F41.9 Anxiety disorder, unspecified; F32.A Depression, unspecified
CPT/HCPCS: 99213

== ENCOUNTER 2023-11-29 09:35 | Outpatient (REF) | payer OTHER, SELFPAY ==
[2023-11-29 10:30] LABS: MANUAL DIFF FLAG NO
[2023-11-29 10:40] LABS: Basophils Percent Auto 0.4 % (0-2); Eosinophils Absolute Auto 0.1 X10*3/uL (0.0-0.4); Eosinophils Percent Auto 1.5 % (0-4); Hematocrit 40.9 % (37.0-47.0); Hemoglobin 13.4 g/dl (12.0-16.0); Imm Gran Abs Auto 0.03 X10*3/uL (0.00-0.03); Imm Gran Pct Auto 0.4 % (0.0-0.4); Lymphocytes Absolute Auto 1.8 X10*3/uL (1.2-4.9); Lymphocytes Percent Auto 26.8 % (20-40); Mean Corpuscular HGB Conc 32.8 g/dl (31.0-35.0); Mean Corpuscular Hemoglobin 27.3 pg (27.0-33.0); Mean Corpuscular Volume 83.5 fL (80.0-98.0); Mean Platelet Volume 10.7 fL (9.4-12.3); Monocytes Absolute Auto 0.4 X10*3/uL (0.1-1.2); Monocytes Percent Auto 6.6 % (2-11); Neutrophils Absolute Auto 4.3 x10*3/uL (2.0-8.3); Neutrophils Percent Auto 64.3 % (45-73); Platelet Count 345 X10*3/uL (160-400); Red Cell Distribution Width 13.2 % (11.0-16.0); White Blood Count 6.7 X10*3/uL (4.8-10.8)
[2023-11-29 11:30] LABS: Alanine Aminotransferase 8 U/L (0-31); Albumin Level 3.8 g/dL (3.5-5.0); Alkaline Phosphatase 98 U/L (39-117); Anion Gap 11 (12-20); Aspartate Amino Transferase 10 U/L (5-31); Bilirubin Total 0.3 mg/dL (0.0-1.0); Blood Urea Nitrogen 6 mg/dL (9-16); Calcium 8.9 mg/dL (8.4-10.2); Carbon Dioxide 28 mmol/L (22-29); Chloride 107 mmol/L (96-108); Estimated Glomerular Filt Rate > 60; Glucose Random 99 mg/dL (60-115); Iron 38 mcg/dL (30-160); Percent Iron Saturation 13 % (15-50); Potassium 3.9 mmol/L (3.3-5.1); Sodium 142 mmol/L (135-145); Total Iron Binding Capacity 293 mcg/dL (228-428); Total Protein 7.3 g/dL (6.5-8.0); Unsaturated Iron Binding 255 ug/dL
[2023-11-29 11:47] LABS: Folate 8.6 ng/mL (> or = 4.0); Vitamin B12 340 pg/mL (200-900)
[2023-11-29 11:48] LABS: Ferritin 14 ng/mL (10-122); Vitamin D 25-OH Total 14.7 ng/mL (>30)
== END 2023-11-29 09:36 | disposition home or self-care (01) ==
LOC: HO.HMGCLDS 09:35
PROVIDERS: PCP Nurse Practitioner Family; Visit Provider Nurse Practitioner Family
DX: L65.9 Nonscarring hair loss, unspecified (principal)
CPT/HCPCS: 36415; 80053; 82306; 82607; 82728; 82746; 83540; 84443; 85025

== ENCOUNTER 2023-12-10 10:43 | Outpatient (AMB) | payer OTHER, SELFPAY ==
[2023-12-10 11:23] VITALS: BP 130/80; PULSE 85; TEMP 36.2; O2SAT 99; BMI 34.6
--- NOTE | 2023-12-10 11:23 | AM.OFFWIN_ITS ---
Intake Vital Signs 12/10/23 11:23 Height 5 ft 1 in Weight 183 lb BMI 34.6 BP 130/80 Blood Pressure Location Lt brachial Position Sitting Pulse 85 Pulse Source Pulse Oximeter Temp 97.2 F Temp Source Temporal Artery Scan Pulse Oximetry (%) 99 Oxygen Delivery Method Room Air Intake Visit Reasons: EP RT hand concerns Intake Note: pt is here today for rt hand started today Patient Tobacco Use Status: Current everyday Tobacco user Allergies No Known Allergies [No Known Allergies*] Allergy (Unknown, Verified 12/10/23 11:27) N.K.D.A. Allergy (Unknown, Uncoded 12/10/23 11:27) unknown Do you need a note to return to daycare/school/sports/work: Yes HPI HPI Comments History of Present Illness Details Patient is a 38-year-old female complaining of pain in her right wrist since August. She states the pain is usually on and off but when she woke up this morning, she was unable to use her hand without extreme pain. She states it is her typical arthritis pain she has a history of fibromyalgia and arthritis. She typically takes meloxicam and Flexeril for it but this is not helping, she is typically wraps it with a sock but she has not tried that. She denies any trauma and states she was doing her typical work duties for the last few days. She states she has an appt to see a licensed tax consultant in 10 days for the 1st time for this issue. [facility] Surgical History Hx of tubal ligation Hx of section Family History Mother Mental health disorder Father Substance use disorder Mental health disorder Sister Substance use disorder Mental health disorder Maternal Aunt Mental health disorder Social History Housing: Condominium Patient Tobacco Use Status: Current everyday Tobacco user Cigarettes Per Day: 2 e-Cigarette/Vaping Use: Never Used Second Hand Smoke Exposure: No Current occupational status: employed Current occupation: [employer] Current occupational exposures/hazards: No Cognitive needs: No Hearing needs: No Vision needs: No Review of Systems Const All systems reviewed & are unremarkable except as noted in HPI and below Physical Exam Vital Signs: Last Vital Signs Temp 97.2 F 12/10/23 11:23 Pulse 85 12/10/23 11:23 BP 130/80 12/10/23 11:23 Pulse Ox 99 12/10/23 11:23 Oxygen Delivery Method Room Air 12/10/23 11:23 BMI result Body Mass Index 34.6 Const General: cooperative, healthy appearing, comfortable and well developed Orientation/consciousness: patient oriented x3 Limitations: no limitations HEENT Head: Yes normal to inspection Eyes General: appearance normal, both eyes and all related structures Neck Neck: Yes normal visual inspection and Yes full ROM Resp Effort & Inspection: normal respiratory effort and able to speak in complete sentences Skin General skin exam: no rashes or lesions noted Neuro General: patient oriented x3 Extrem General: Yes normal to inspection Right upper extremity: normal to inspection and wrist Details: tenderness (Throughout) and normal vascular exam; no swelling, no unusual warmth, no abrasions, no lacerations, no ecchymosis, no crepitus and no deformity Left upper extremity: normal to inspection and full ROM Assessment & Plan Assessment & Plan (1) Rheumatoid arthritis: Code(s): M06.9 - Rheumatoid arthritis, unspecified Qualifiers: Laterality: right Rheumatoid arthritis location: wrist Rheumatoid factor presence: unspecified presence Qualified Code(s): M06.9 - Rheumatoid arthritis, unspecified Plan: Applied Anish bandage with some relief, recommended she not miss her appointment with the licensed tax consultant in 10 days. I did offer to send her to the hand surgeon at [facility] to see if they would offer her a steroid injection but she declined this. Recommended to continue her meloxicam and Flexeril and gave her a work note for 2 days. Advised to follow up with her PCP if it gets worse. Plan See above Coding Level of Care Code Est Pt Level 3 (64627) Diagnoses Rheumatoid arthritis involving right wrist, unspecified whether rheumatoid factor present M06.9 Laterality: right Rheumatoid arthritis location: wrist Rheumatoid factor presence: unspecified presence
== END 2023-12-10 12:05 | disposition home or self-care (01) ==
PROVIDERS: PCP Nurse Practitioner Family; Visit Provider Physician Assistant
DX: M06.9 Rheumatoid arthritis, unspecified (principal)
CPT/HCPCS: 99213

== ENCOUNTER 2023-12-11 09:08 | Outpatient (AMB) | payer OTHER, SELFPAY ==
[2023-12-11 09:16] VITALS: BP 132/80; PULSE 98; O2SAT 98; BMI 34.6
--- NOTE | 2023-12-11 09:16 | A.OFFPC_ITS ---
Vital Signs 12/11/23 09:16 Height 5 ft 1 in Weight 183 lb BMI 34.6 BP 132/80 Blood Pressure Location Rt brachial Position Sitting Pulse 98 Pulse Source Pulse Oximeter Pulse Oximetry (%) 98 Oxygen Delivery Method Room Air Intake Visit Reasons: Follow up Walk-in Intake Note: pt is here for follow up from walk in Regional Sales Representative Required: No Accompanied by: Self / Same As Patient Allergies No Known Allergies [No Known Allergies*] Allergy (Unknown, Verified 12/11/23 09:16) N.K.D.A. Allergy (Unknown, Uncoded 12/10/23 11:27) unknown Tobacco use date assessed: 08/30/23 Dental Screening Dental Screen Date: 08/30/23 HPI Follow up Walk-in HPI Details Pt c/o right hand and wrist pain. She was seen in the walk-in for this on 12/09. She has a hx of fibormyalgia and arthritis. Pt will be following up with rheumatology in the near future. Will order XRs of hand and wrist. Recommended wearing a splint. Denies fever, chills, and dizziness. PFSH Surgical History Hx of tubal ligation Hx of section Family History Mother Mental health disorder Father Substance use disorder Mental health disorder Sister Substance use disorder Mental health disorder Maternal Aunt Mental health disorder Social History Housing: Condominium Patient Tobacco Use Status: Current everyday Tobacco user Cigarettes Per Day: 2 e-Cigarette/Vaping Use: Never Used Second Hand Smoke Exposure: No Current occupational status: employed Current occupation: [employer] Current occupational exposures/hazards: No Cognitive needs: No Hearing needs: No Vision needs: No Questionnaire Thrive Questionnaire Date Thrive assessed: 08/30/23 KOLBY-7 AMB Questionnaire KOLBY-7 Date KOLBY - 7 assessed: 08/30/23 Source: Developed by Drs. Unruly Villagomez, Ingris Jalloh, John Chanel and colleagues, with an educational alina from [employer]. Review of Systems Const Reports as per HPI Physical exam (Primary Care) Vital Signs: Last Vital Signs Pulse 98 12/11/23 09:16 BP 132/80 12/11/23 09:16 Pulse Ox 98 12/11/23 09:16 Oxygen Delivery Method Room Air 12/11/23 09:16 BMI result Body Mass Index 34.6 Tobacco/Smoking Status: Tobacco use Status Tobacco use date assessed 08/30/23 12/11/23 09:21 Patient Tobacco Use Status Current everyday Tobacco 12/11/23 09:21 e-Cigarette/Vaping Use Never Used 12/11/23 09:21 Thrive Assessment: Date of Thrive Assessment Date Thrive assessed 08/30/23 12/11/23 09:21 Const General: cooperative Orientation/consciousness: patient oriented x3 Resp Effort & Inspection: normal respiratory effort Auscultation: clear to auscultation bilaterally Cardio Rate: regular rate Rhythm: regular rhythm Heart sounds: S1 normal heart sound present and S2 normal heart sound present Neuro General: patient oriented x3 Extrem Other: + finklesteins test, tenderness noted with ulnar and radial deviation, weakness with hand grasp to palmar aspect of hand, + radial pulse, no discoloration Psych Appearance: grossly normal Mental Status: mental status grossly normal Speech and movement: Normal speech and movement present Affect: normal affect Attitude: cooperative Thought process: Normal thought process present Thought content: Normal thought content present Insight: Good insight present (Psych) Judgement: Good judgement present (Psych) Assessment and Plan Assessment & Plan (1) Wrist pain: Code(s): M25.539 - Pain in unspecified wrist Plan: XRs ordered (2) Hand pain: Code(s): M79.643 - Pain in unspecified hand Plan: XRs ordered Plan The patient agreed to the use of a medical affairs director for this encounter. Scribed for TIFFANY Mason by Bessy Ba medical affairs director, on 12/11/2023 at 09:25 EST. Orders: Orders XR wrist RT 2V Today M25.539 - Pain in unspecified wrist, M79.643 - Pain in unspecified hand Medications: Refilled cholecalciferol (vitamin D3) 50 mcg PO DAILY 90 caps 0RF Coding Level of Care Code Est Pt Level 3 (07455) Diagnoses Wrist pain M25.539 Hand pain M79.643
== END 2023-12-11 09:50 | disposition home or self-care (01) ==
PROVIDERS: PCP Nurse Practitioner Family; Visit Provider Nurse Practitioner Family
DX: M25.539 Pain in unspecified wrist (principal); M79.643 Pain in unspecified hand
CPT/HCPCS: 99213

== ENCOUNTER 2023-12-11 09:34 | Outpatient (REF) | payer OTHER, SELFPAY ==
--- NOTE | ~2023-12-11 | XR_ITS ---
EXAMINATION: XR HAND/WRIST, RIGHT CLINICAL INFORMATION: Pain in right hand, wrist. COMPARISON: 09/29/2022 TECHNIQUE: PA, lateral, and oblique views of the right hand and wrist. FINDINGS: The bone mineralization is normal. Alignment preserved. No displaced fracture appreciated. Joint spaces are maintained. XR/XR hand wrist RT IMPRESSION: No displaced fracture. Recommend follow-up imaging in 10-14 days if fracture is suspected.
== END 2023-12-11 09:35 | disposition home or self-care (01) ==
LOC: HO.HMGCX 09:34
PROVIDERS: PCP Nurse Practitioner Family; Visit Provider Nurse Practitioner Family
DX: M79.641 Pain in right hand (principal); M25.531 Pain in right wrist
CPT/HCPCS: 73110; 73130

== ENCOUNTER 2023-12-21 09:48 | Outpatient (AMB) | payer OTHER, SELFPAY ==
[2023-12-21 09:50] VITALS: BP 114/62; PULSE 95; O2SAT 97; BMI 34.2
--- NOTE | 2023-12-21 09:50 | A.OFFVIS_ITS ---
Vital Signs 12/21/23 09:50 Height 5 ft 1 in Weight 180 lb 12.465 oz BMI 34.2 BP 114/62 Blood Pressure Location Rt brachial Position Sitting Pulse 95 Pulse Source Pulse Oximeter Pulse Oximetry (%) 97 Oxygen Delivery Method Room Air Intake Visit Reasons: FM Intake Note: New pt presents today for FM/RA. Reports jpint pain, seen at ED cruz's cyst. 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 Allergy (Unknown, Uncoded 12/21/23 10:01) unknown HPI Comments Details: Ms. Farr 38 yoF with a histroy of JRA, presents for evaluation of right knee pain and swelling. She went to the ER and was told cruz's cycst and then saw Ortho. She shares that she has not seen a Clinical Dietitian since her early 20s and has essentially learned to deal with the pain in her daily life. She just returned to work after a 3 week hiatus due to her knee. --Aug 2023 - ER bakers cyst; pain started in june; referred to Ortho, told it was inoperable and was given a hinged brace. --was taking ibuprofen 800 mg BID, changed to Meloxicam 15 mg also takes cyclobenzoprine; --pain also hands and wrist --about 45 minutes to start getting lose. --consistent swelling to right knee, pain and swelling to both intermittently --Knows how to differentiate Fibro pain form RA pain - gets heat with RA pain per patient and mainly to knees and hands/wrist --Bald spot a top head within 1 1/2 years --didnt walked normal until 8 years - had lots of PT as a child (tubs etc) --JRA diagnosed at 4 years old --multiple miscarriages (4) within the first trimester; denies Blood Clots --describes and daughter agrees Raynaud's --no rash personal / but all three children has eczema --mom may have had lupus; mom, grandma with RA. --no mouth sores, no chronic fevers, no dry eyes or dry mouth. --warm knees --tender all over - upper arms, thighs, IP joints. -- [facility] Medical History (Updated 12/21/23 @ 10:57 by Dianna Valdez [facility]) Bilateral knee pain FH: multiple miscarriages or stillbirths Surgical History Hx of tubal ligation Hx of section Family History Mother Mental health disorder Father Substance use disorder Mental health disorder Sister Substance use disorder Mental health disorder Maternal Aunt Mental health disorder Social History [facility] Patient Tobacco Use Status: Current everyday Tobacco user Cigarettes Per Day: 2 e-Cigarette/Vaping Use: Never Used Second Hand Smoke Exposure: No Current occupational status: employed Current occupation: [employer] Current occupational exposures/hazards: No Cognitive needs: No Hearing needs: No Vision needs: No Review of Systems Const All systems reviewed & are unremarkable except as noted in HPI and below Physical Exam Vital Signs: Last Vital Signs Pulse 95 12/21/23 09:50 BP 114/62 12/21/23 09:50 Pulse Ox 97 12/21/23 09:50 Oxygen Delivery Method Room Air 12/21/23 09:50 BMI result Body Mass Index 34.2 General: Non-toxic, NAD. Speaking full sentences. Skin: Warm dry throughout. No erythema to joints or notable edema. No lower leg edema/pitting edema Eye: EOMI HENT: Bilateral canals clear. TM non-erythematous, non-bulging. No TM perforation or hemotympanum noted. Respiratory: CTA bilaterally. No wheezes, rales or rhonchi Cardiac: RRR. No murmur MSK: No midline spinal tenderness to palpation. Diffuse non-specific tenderness to palpation of shoulders near lateral humerus/AV joint. No whincing with palpation of trapezii bilaterally. Gait stable. Diffused Tenderness to palpation R knee, feet, ankle, wrists and hand IP joints. Neuro: A/O x 3. No facial droop or aphasia. Psych: Good mood and affect Results Reviewed Results Reviewed: FINDINGS: RIGHT KNEE: Redemonstration of mild erosions along the medial aspect of the tibial plateau. Mild medial joint space narrowing. Small to moderate joint effusion. Tiny posterior patellar osteophytes. LEFT KNEE: Single AP standing view demonstrates minimal medial and lateral marginal osteophytes. Redemonstration of previously noted marginal erosions along the medial and lateral tibial plateau as noted on 08/30/2016. Mild medial joint space narrowing. XR/XR knee standing BI IMPRESSION: Redemonstration of mild degenerative changes in the bilateral knees. Redemonstration of chronic erosions at the bilateral tibial plateaus, previously stated to be compatible with given history of JRA. Correlation with clinical history and exam recommended for confirmation. X-RAY RIGHT HAND AND X-RAY LEFT HAND CLINICAL HISTORY: Pain. COMPARISON: Radiograph left hand 08/30/2016. Radiograph right hand 08/27/2014. TECHNIQUE: 3 views of each hand. FINDINGS: No acute fractures or subluxation. No significant joint space narrowing or spurring. No osseous erosions. No abnormal soft tissue calcifications. XR/XR hand LT min 3V IMPRESSION: 1. No acute fractures or subluxation. 2. No significant degenerative changes. 3. No evidence of inflammatory osteoarthritis. Laboratory Tests 08/16/18 04/25/19 11/29/23 10:23 11:35 09:37 WBC 6.7 Anion Gap 11 L BUN 6 L Iron 38 TIBC 293 % Saturation 13 L Ferritin 14 AST 10 ALT 8 Vitamin B12 340 25-OH Vitamin D Total 14.7 L Folate 8.6 TSH 0.90 Rheumatoid Factor < 15.0 Cycl Citrul Peptide IgG 22 H FABRICE Screen Negative Thyroid Peroxidase Ab 2 TSH Receptor Antibody <6.0 Assessment & Plan Assessment & Plan (1) Rheumatoid arthritis: Code(s): M06.9 - Rheumatoid arthritis, unspecified Category: Medical Qualifiers: Rheumatoid arthritis location: wrist Rheumatoid factor presence: u nspecified presence Laterality: right Qualified Code(s): M06.9 - Rheumatoid arthritis, unspecified (2) Hand pain: Code(s): M79.643 - Pain in unspecified hand Category: Medical Qualifiers: Laterality: bilateral Qualified Code(s): M79.641 - Pain in right hand; M79.642 - Pain in left hand (3) Wrist pain: Code(s): M25.539 - Pain in unspecified wrist Category: Medical Qualifiers: Laterality: bilateral Qualified Code(s): M25.531 - Pain in right wrist; M25.532 - Pain in left wrist (4) Bilateral knee pain: Code(s): M25.561 - Pain in right knee; M25.562 - Pain in left knee Category: Medical Qualifiers: Chronicity: chronic Qualified Code(s): M25.561 - Pain in right knee; M25.562 - Pain in left knee; G89.29 - Other chronic pain Plan #SeroPos RA.Knee Pain/Hand and Wrist: Patient with history of JRA and weak positive CCP (22 in 2019) has expressed that she has been living with chronic knee pain. She did MTX in the early years until her early 20s. She has not clear reason as to why she has stopped following with Rheum. It appears the she occasionally gets Prednisone from her PCP to treat her knee pain. I did discuss with patient that the cruz's cyst can resolved and may take some time. Aspiration is not recommended since it can come back. However, we can explore those options at next visit. The focus is to determine if inflammatory arthritis and treat the underlying cause. I will do a Rheum panel. There are existing xrays that details medial erosions to her knees. Hand images are grossly normal. She does have some Prednisone at home prescribed by her PCP. We will consider to start MTX at next visit. I spent 40 minutes reviewing history, evaluating patient and documenting. RTC 1 month Orders: Orders FABRICE Reflex Titer and Pattern Today M06.9 - Rheumatoid arthritis, unspecified, M25.539 - Pain in unspecified wrist, M79.643 - Pain in unspecified hand Anti-Centromere B Antibodies Today M06.9 - Rheumatoid arthritis, unspecified, M25.539 - Pain in unspecified wrist, M79.643 - Pain in unspecified hand Anti Extractable Nuclear Ag Today M06.9 - Rheumatoid arthritis, unspecified, M25.539 - Pain in unspecified wrist, M79.643 - Pain in unspecified hand Complement C4 Today M06.9 - Rheumatoid arthritis, unspecified, M25.539 - Pain in unspecified wrist, M79.643 - Pain in unspecified hand Complete Blood Count Auto Diff Today M06.9 - Rheumatoid arthritis, unspecified, M25.539 - Pain in unspecified wrist, M79.643 - Pain in unspecified hand Comprehensive Met. Panel Today M06.9 - Rheumatoid arthritis, unspecified, M25.539 - Pain in unspecified wrist, M79.643 - Pain in unspecified hand C Reactive Protein Today M06.9 - Rheumatoid arthritis, unspecified, M25.539 - Pain in unspecified wrist, M79.643 - Pain in unspecified hand Creatine Kinase Total Today M06.9 - Rheumatoid arthritis, unspecified, M25.539 - Pain in unspecified wrist, M79.643 - Pain in unspecified hand Immunofixation Pnl, Serum Today M06.9 - Rheumatoid arthritis, unspecified, M25.539 - Pain in unspecified wrist, M79.643 - Pain in unspecified hand Scleroderma 70 Antibody Today M06.9 - Rheumatoid arthritis, unspecified, M25.539 - Pain in unspecified wrist, M79.643 - Pain in unspecified hand Sjogren's Antibodies Today M06.9 - Rheumatoid arthritis, unspecified, M25.539 - Pain in unspecified wrist, M79.643 - Pain in unspecified hand Rheumatoid Factor Today M06.9 - Rheumatoid arthritis, unspecified, M25.539 - Pain in unspecified wrist, M79.643 - Pain in unspecified hand Lupus Anticoagulant Panel Today M25.539 - Pain in unspecified wrist, M79.643 - Pain in unspecified hand, Z84.89 - Family history of other specified conditions Protein Creatinine Ratio, Ur Today M25.539 - Pain in unspecified wrist, M79.643 - Pain in unspecified hand, Z84.89 - Family history of other specified conditions Erythrocyte Sedimentation Rate Today M06.9 - Rheumatoid arthritis, unspecified, M25.539 - Pain in unspecified wrist, M79.643 - Pain in unspecified hand Anti DNA DS Antibody Today M06.9 - Rheumatoid arthritis, unspecified, M25.539 - Pain in unspecified wrist, M79.643 - Pain in unspecified hand Complement C3 Today M06.9 - Rheumatoid arthritis, unspecified, M25.539 - Pain in unspecified wrist, M79.643 - Pain in unspecified hand Hepatitis A,B,C Profile Today M06.9 - Rheumatoid arthritis, unspecified, M25.539 - Pain in unspecified wrist, M79.643 - Pain in unspecified hand Immunoglobulins,IgG IgA IgM Today M06.9 - Rheumatoid arthritis, unspecified, M25.539 - Pain in unspecified wrist, M79.643 - Pain in unspecified hand Protein Electrophoresis, Serum Today M06.9 - Rheumatoid arthritis, unspecified, M25.539 - Pain in unspecified wrist, M79.643 - Pain in unspecified hand Uric Acid Today M06.9 - Rheumatoid arthritis, unspecified, M25.539 - Pain in unspecified wrist, M79.643 - Pain in unspecified hand T Spot TB Today M06.9 - Rheumatoid arthritis, unspecified, M25.539 - Pain in unspecified wrist, M79.643 - Pain in unspecified hand UA w Microscopic Today M06.9 - Rheumatoid arthritis, unspecified, M25.539 - Pain in unspecified wrist, M79.643 - Pain in unspecified hand Cyclic Citrullinated Peptide Today M06.9 - Rheumatoid arthritis, unspecified, M25.539 - Pain in unspecified wrist, M79.643 - Pain in unspecified hand Beta-2 Glycoprotein Antibody Today M25.539 - Pain in unspecified wrist, M79.643 - Pain in unspecified hand, Z84.89 - Family history of other specified co nditions Cardiolipin Antibodies Today M25.539 - Pain in unspecified wrist, M79.643 - Pain in unspecified hand, Z84.89 - Family history of other specified conditions Coding Level of Care Code New Pt Level 4 (72588) Diagnoses Rheumatoid arthritis involving right wrist, unspecified whether rheumatoid factor present M06.9 Rheumatoid arthritis location: wrist Rheumatoid factor presence: unspecified presence Laterality: right Pain in both hands M79.641; M79.642 Laterality: bilateral Pain in both wrists M25.531; M25.532 Laterality: bilateral Chronic pain of both knees M25.561; M25.562; G89.29 Chronicity: chronic
== END 2023-12-21 11:14 | disposition home or self-care (01) ==
PROVIDERS: PCP Nurse Practitioner Family; Visit Provider Nurse Practitioner Family
DX: M06.9 Rheumatoid arthritis, unspecified (principal); M79.641 Pain in right hand; M79.642 Pain in left hand; M25.531 Pain in right wrist; M25.532 Pain in left wrist; M25.561 Pain in right knee; M25.562 Pain in left knee; G89.29 Other chronic pain
CPT/HCPCS: 99204

== ENCOUNTER → 2023-12-21 09:48 | Outpatient (BNVA) | payer OTHER, SELFPAY | PROVIDERS: PCP Nurse Practitioner Family; Visit Provider Nurse Practitioner Family ==

== ENCOUNTER 2023-12-21 10:44 | Outpatient (REF) | payer OTHER, SELFPAY ==
[2023-12-21 13:14] LABS: MANUAL DIFF FLAG NO
[2023-12-21 13:25] LABS: Basophils Absolute Auto 0.1 X10*3/uL (0.0-0.2); Basophils Percent Auto 0.7 % (0-2); Eosinophils Absolute Auto 0.1 X10*3/uL (0.0-0.4); Eosinophils Percent Auto 1.2 % (0-4); Hematocrit 42.1 % (37.0-47.0); Hemoglobin 13.9 g/dl (12.0-16.0); Imm Gran Abs Auto 0.02 X10*3/uL (0.00-0.03); Imm Gran Pct Auto 0.3 % (0.0-0.4); Lymphocytes Absolute Auto 1.9 X10*3/uL (1.2-4.9); Lymphocytes Percent Auto 26.2 % (20-40); Mean Corpuscular Hemoglobin 27.7 pg (27.0-33.0); Mean Corpuscular Volume 83.9 fL (80.0-98.0); Mean Platelet Volume 10.5 fL (9.4-12.3); Monocytes Absolute Auto 0.5 X10*3/uL (0.1-1.2); Neutrophils Absolute Auto 4.7 x10*3/uL (2.0-8.3); Neutrophils Percent Auto 64.6 % (45-73); Platelet Count 356 X10*3/uL (160-400); Red Blood Count 5.02 X10*6/uL (4.20-5.50); Red Cell Distribution Width 13.3 % (11.0-16.0); White Blood Count 7.3 X10*3/uL (4.8-10.8)
[2023-12-21 13:39] LABS: Anion Gap 10 (12-20); Aspartate Amino Transferase 12 U/L (5-31); Bilirubin Total 0.4 mg/dL (0.0-1.0); Blood Urea Nitrogen 11 mg/dL (9-16); Calcium 9.5 mg/dL (8.4-10.2); Carbon Dioxide 26 mmol/L (22-29); Chloride 106 mmol/L (96-108); Estimated Glomerular Filt Rate > 60; Glucose Random 93 mg/dL (60-115); Potassium 3.9 mmol/L (3.3-5.1); Sodium 138 mmol/L (135-145)
[2023-12-21 13:40] LABS: Alanine Aminotransferase 9 U/L (0-31); Alkaline Phosphatase 89 U/L (39-117); C Reactive Protein 1.86 mg/dL (< or = 0.50); Total Protein 7.8 g/dL (6.5-8.0)
[2023-12-24 15:29] LABS: Anti Nuclear Antibody Screen NEGATIVE (NEGATIVE)
[2023-12-24 21:08] LABS: Anti-Centromere B Antibodies <1.0 NEG AI (<1.0 NEG)
[2023-12-24 21:29] LABS: Antibody to SS-A Antigen <1.0 NEG AI (<1.0 NEG); Antibody to SS-B Antigen <1.0 NEG AI (<1.0 NEG); SM/Ribonucleoprotein Ab <1.0 NEG AI (<1.0 NEG); Scleroderma 70 Antibody <1.0 NEG AI (<1.0 NEG); Smith Protein <1.0 NEG AI (<1.0 NEG)
[2023-12-26 21:09] LABS: IgA 278 mg/dL (47-310); IgG 1437 mg/dL (600-1640); IgM 141 mg/dL (50-300)
== END 2023-12-21 10:45 | disposition home or self-care (01) ==
LOC: HO.10HDL 10:44
PROVIDERS: Visit Provider Nurse Practitioner Family
DX: M06.9 Rheumatoid arthritis, unspecified (principal); M79.641 Pain in right hand; M79.642 Pain in left hand; M25.531 Pain in right wrist; M25.532 Pain in left wrist; M25.561 Pain in right knee; M25.562 Pain in left knee; G89.29 Other chronic pain
CPT/HCPCS: 36415; 80053; 82550; 82784; 85025; 86038; 86140; 86160; 86235; 86334; 99202

== ENCOUNTER 2024-01-10 07:47 | Outpatient (AMB) | payer OTHER, SELFPAY ==
--- NOTE | 2024-01-10 07:27 | A.OFFPC_ITS ---
Intake Visit Reasons: Court letter Allergies No Known Allergies [No Known Allergies*] Allergy (Unknown, Verified 01/10/24 07: 47) N.K.D.A. Allergy (Unknown, Uncoded 01/10/24 07:47) unknown Medication List - Last Reconciled 01/10/24 by [facility] cholecalciferol (vitamin D3) 50 mcg PO DAILY cyclobenzaprine 10 mg PO BID 30 days meloxicam 7.5 mg PO DAILY 30 days Tobacco use date assessed: 08/30/23 Dental Screening Dental Screen Date: 08/30/[address] HPI Details anxiety: increased related to housing conditions. She reports that her door is not opening properly which makes her feel trapped. Pt reports that someone from the board of health came to look at her door and stated that it needs to be fixed. Pt also reports a mold and rat problem. She needs a letter for court, will write. Denies any SI and HI. [facility] Medical History (Updated 01/10/24 @ 07:35 by TIFFANY Dill) Bilateral knee pain FH: multiple miscarriages or stillbirths Surgical History Hx of tubal ligation Hx of section Family History Mother Mental health disorder Father Substance use disorder Mental health disorder Sister Substance use disorder Mental health disorder Maternal Aunt Mental health disorder Social History Housing: Condominium Patient Tobacco Use Status: Current everyday Tobacco user Cigarettes Per Day: 2 e-Cigarette/Vaping Use: Never Used Second Hand Smoke Exposure: No Current occupational status: employed Current occupation: [employer] Current occupational exposures/hazards: No Cognitive needs: No Hearing needs: No Vision needs: No Questionnaire Thrive Questionnaire Date Thrive assessed: 08/30/23 KOLBY-7 AMB Questionnaire KOLBY-7 Date KOLBY - 7 assessed: 08/30/23 Source: Developed by Drs. Unruly Villagomez, Ingris Jalloh, John Chanel and colleagues, with an educational alina from [employer]. Review of Systems Const Reports as per HPI Physical exam (Primary Care) Tobacco/Smoking Status: Tobacco use Status Tobacco use date assessed 08/30/23 01/10/24 07:27 Patient Tobacco Use Status Current everyday Tobacco 01/10/24 07:27 e-Cigarette/Vaping Use Never Used 01/10/24 07:27 Thrive Assessment: Date of Thrive Assessment Date Thrive assessed 08/30/23 01/10/24 07:27 Const General: cooperative Orientation/consciousness: patient oriented x3 Neuro General: patient oriented x3 Psych Appearance: grossly normal Mental Status: mental status grossly normal Speech and movement: Clear speech present Affect: normal affect Attitude: cooperative Thought process: Normal thought process present Thought content: Normal thought content present Insight: Good insight present (Psych) Judgement: Good judgement present (Psych) Telehealth Telehealth Telehealth Platform: [employer] Location of provider rendering services: practice address Location of patient: address on file Patient Identification confirmed using: Name, : Yes Telehealth method: video Patient verbally consented to treatment: Yes Patient verbally consented to billing insurance company: Yes Patient informed of any privacy concerns related to visit: Yes Minutes spent on Phone/Video with Pt.: 10 Assessment and Plan Assessment & Plan (1) At risk for increased anxiety: Code(s): Z91.89 - Other specified personal risk factors, not elsewhere classified Plan: Related to housing issues, will write letter for court (2) Anxiety: Code(s): F41.9 - Anxiety disorder, unspecified Plan: Related to housing issues, will write letter for court Plan The patient agreed to the use of a medical clinic manager for this encounter. Scribed for TIFFANY Mason by arley Camilo scribe, on 01/10/2024 at 07:25 EST. Coding Level of Care Code Tele Est Pt Level 3 (35369) Diagnoses At risk for increased anxiety Z91.89 Anxiety F41.9
== END 2024-01-10 10:56 | disposition home or self-care (01) ==
LOC: HO.HMGC 07:47
PROVIDERS: PCP Nurse Practitioner Family; Visit Provider Nurse Practitioner Family
DX: Z91.89 Other specified personal risk factors, not elsewhere classified (principal); F41.9 Anxiety disorder, unspecified
CPT/HCPCS: 99213

== ENCOUNTER 2024-01-15 15:53 | Emergency (ER) | payer OTHER, SELFPAY ==
[2024-01-15 16:09] VITALS: BP 118/74; PULSE 103; RESP 18; TEMP 36.3; O2SAT 97; BMI 35.2
--- NOTE | 2024-01-15 16:12 | ED.WOUNDLAC ---
HPI - Wound/Laceration General Chief Complaint: Wound/Laceration Stated Complaint: cut tip of finger Time Seen by Provider: 01/15/24 20:13 Source: patient Mode of arrival: ambulatory Limitations: no limitations History of Present Illness ED Provider: Dr. Brian Meredith HPI narrative: 38-year-old female with a history rheumatoid arthritis, fibromyalgia, anxiety, depression who presents emergency department for evaluation of accidentally cutting the skin off the tip of her left index finger while she was cutting steak. The wound occurred just prior to her coming to the emergency department. She states that her tetanus status up-to-date. Related Data Previous Rx's ?Medication ?Instructions ?Recorded cyclobenzaprine 10 mg tablet 10 mg PO BID 30 days #60 tabs 11/13/23 cholecalciferol (vitamin D3) 50 50 mcg PO DAILY #90 caps 12/11/23 mcg (2,000 unit) capsule meloxicam 7.5 mg tablet 7.5 mg PO DAILY 30 days #30 tabs 01/09/24 Allergies Allergy/AdvReac Type Severity Reaction Status Date / Time No Known Allergies Allergy Unknown Verified 01/15/24 16:12 [No Known Allergies*] N.K.D.A. Allergy Unknown unknown Uncoded 01/10/24 07:47 Review of Systems Review of Systems: Yes all other systems are reviewed and are negative [facility] Past Medical History Medical History (Updated 01/15/24 @ 20:45 by Brian Meredith MD) Bilateral knee pain FH: multiple miscarriages or stillbirths Surgical History Hx of tubal ligation Hx of section Family History Family History Mother Mental health disorder Father Substance use disorder Mental health disorder Sister Substance use disorder Mental health disorder Maternal Aunt Mental health disorder Social History Social History Housing: Condominium Patient Tobacco Use Status: Current everyday Tobacco user Cigarettes Per Day: 2 e-Cigarette/Vaping Use: Never Used Second Hand Smoke Exposure: No Advance Directives: No Advance Directives Information Provided: No Do you have a plan to hurt others: No Plan Current occupational status: employed Current occupation: [employer] Current occupational exposures/hazards: No Cognitive needs: No Hearing needs: No Vision needs: No Physical Exam Vital Signs: Vital Signs: Last Vital Signs Temp 97.0 F 01/15/24 20:00 Pulse 74 01/15/24 20:00 Resp 18 01/15/24 20:00 BP 112/88 01/15/24 20:00 Pulse Ox 98 01/15/24 20:00 O2 Del Method Room Air 01/15/24 20:00 BMI result Body Mass Index 35.2 Vital signs were normal Exam: General: Awake, alert in no distress Left hand: There is a small skin avulsion of the tip of the left index finger, there is venous bleeding which did not stop with direct pressure, her fingers neurovascularly intact Course Course Course Narrative: This is a Rapid Medical Examination (RME) performed by Yunior Caballero PA-C in triage. Full HPI, ROS, assessment and treatment plan per primary provider in the Main ED. 38 yo female presenting for evaluation after she cut the tip of her right index finger off while cutting raw steak. pain is 10/10. actively bleeding with small avulsion of the tip. given gauze and pressure applied. TDAP UTD Plan: control bleeding Medical Decision Making Medical Decision Making MDM Narrative: Differential diagnosis: ?Includes but is not limited to skin avulsion, laceration, neurovascular injury Course: The patient had a skin avulsion and there was no laceration to be sutured closed. I did apply a complex pressure dressing. Initial layer was Surgicel x3 layers covered with bacitracin, held in place with Vaseline gauze and then cotton gauze wrapped with a Kerlix gauze. Outer layer was created with Coban to apply pressure to the tip of the finger. Patient was advised to keep this complex pressure dressing on for 48 hours. She was given instructions and hot remove the dressing and to apply bacitracin and cause dressing for at least 1 week. Patient was advised to take Tylenol ibuprofen for pain and given a work note to not return to work until 01/21/2024 Discharge Plan Discharge Clinical Impression: Avulsion of finger tip Patient Disposition: Home, Self-Care Instructions: Skin Avulsion (ED) Additional Instructions: You cut the skin off the tip of your left index finger. When you cut the tip off, the underlying wound can bleed for several days. I put a complex dressing on your finger that includes Surgicel, bacitracin, Vaseline gauze, cotton gauze and Coban. Keep this complex dressing on for 48 hours, you can take the dressing off Sunday morning. When you get to the Surgicel layers wet the finger with warm tap water and gently remove the Surgicel layer. Try not to peel off the underlying blood clot. Apply bacitracin and keep the wound covered with a gauze bandage for 1 week. Watch for signs of infection which would include increased redness, increased swelling, drainage of pus, red streaks going away from the wound. Take ibuprofen 200 mg pills, 2 pills every 6 hours as needed for pain or fever. Take Tylenol (acetaminophen) 500 mg pills, 2 pills every 6 hours as needed for pain or fever. Please return to the emergency department if your symptoms get worse or if you develop any symptoms that are concerning to you. Please see the work note Prescriptions: No Action cyclobenzaprine 10 mg tablet 10 mg PO BID 30 Days Qty: 60 0RF meloxicam 7.5 mg tablet 7.5 mg PO DAILY 30 Days Qty: 30 0RF Rx Instructions: do not take concurrently with ibuprofen cholecalciferol (vitamin D3) 50 mcg (2,000 unit) capsule 50 mcg PO DAILY Qty: 90 0RF Stand Alone Forms: Work/School Release Print Language: Bahamian
[2024-01-15 20:00] VITALS: BP 112/88; PULSE 74; RESP 18; TEMP 36.1; O2SAT 98
--- NOTE | 2024-01-15 20:45 | PC.NURSE ---
Evbridget by , wound cleaned and dressed, cleared for dc gome.
[2024-01-15 20:58] VITALS: BP 112/88; PULSE 74; RESP 18; TEMP 36.1; O2SAT 98
== END 2024-01-15 20:59 | disposition home or self-care (01) ==
PROVIDERS: Emergency Provider Emergency Medicine Emergency Medical Services; PCP Nurse Practitioner Family
DX: S61.301A Unspecified open wound of left index finger with damage to nail, initial encounter (principal); X58.XXXA Exposure to other specified factors, initial encounter; W26.0XXA Contact with knife, initial encounter; Y93.89 Activity, other specified; Y92.89 Other specified places as the place of occurrence of the external cause; Y99.8 Other external cause status
CPT/HCPCS: 99283

== ENCOUNTER 2024-08-15 09:53 | Outpatient (AMB) | payer OTHER, SELFPAY ==
--- NOTE | 2024-08-14 13:40 | A.OFFPC_ITS ---
Intake Visit Reasons: Discuss med iPhone Intake Note: pt is having a telehealth visit to discuss rx for lexapro Allergies No Known Allergies [No Known Allergies*] Allergy (Unknown, Verified 08/15/24 10:11) NJose [place]. Allergy (Unknown, Uncoded 08/15/24 10:11) unknown Medication List - Last Reconciled 08/15/24 by Lynne Feliciano MD cholecalciferol (vitamin D3) 50 mcg PO DAILY cyclobenzaprine 10 mg PO BID 30 days meloxicam 7.5 mg PO DAILY 30 days Tobacco use date assessed: 08/15/24 Dental Screening Dental Screen Date: 08/15/24 Did you have a dental visit in the last 12 months?: No Did you have a dental problem in the last 6 months where you did not have access to dental care?: No Was dental information given to patient?: Patient has dentist HPI Discuss med iPhone HPI Details 39-year-old lady, presenting today by [facility] complaining of frequent anxiety attacks and mood swings. Patient has history of bipolar disorder. Previously was on citalopram prescribed by her PCP 08/21/2023 but admits to not taking it regularly. Patient would like to be placed back on it as she has been having a lot of anxiety attacks and mood swings. Patient however declined referral to see a a therapist, stating that she does not want to talk to anybody right now about her problems . [facility] Medical History Hyperemesis gravidarum (10/28/19) Fibromyalgia Chronic bipolar disorder History of ectopic History of chlamydia infection Bilateral knee pain FH: multiple miscarriages or stillbirths Surgical History Hx of tubal ligation Hx of section Family History Mother Mental health disorder Father Substance use disorder Mental health disorder Sister Substance use disorder Mental health disorder Maternal Aunt Mental health disorder Social History Housing: Condominium Patient Tobacco Use Status: Current everyday Tobacco user Cigarettes Per Day: 2 e-Cigarette/Vaping Use: Never Used Second Hand Smoke Exposure: No Current occupational status: employed Current occupation: [employer] Current occupational exposures/hazards: No Cognitive needs: No Hearing needs: No Vision needs: No Questionnaire PHQ-9 Over the last 2 weeks, how often have you been bothered by any of the following problems? 1. Little interest or pleasure in doing things: nearly every day 2. Feeling down, depressed, or hopeless: nearly every day 3. Trouble falling or staying asleep, or sleeping too much: more than half the days 4. Feeling tired or having little energy: more than half the days 5. Poor appetite or overeating: more than half the days 6. Feeling bad about yourself - or that you are a failure or have let yourself or your family down: more than half the days 7. Trouble concentrating on things, such as reading the newspaper or watching television: more than half the days 8. Moving or speaking so slowly that other people could have noticed. Or the opposite - being so fidgety or restless that you have been moving around a lot more than usual: several days 9. Thoughts that you would be better off or of hurting yourself in some way: not at all Total score: 17 Depression Screening Interpretation: Positive (refuses therapy) Depression Screening Follow-up: Existing condition, New Medication prescribed and Other (Declines referral for counseling) Depression Screening Done: Yes 46956 - PHQ-9 Billing: Yes Source: Developed by Drs. Unruly Villagomez, Ingris Jalloh, John Chanel and colleagues, with an educational alina from [employer]. Thrive Questionnaire Date Thrive assessed: 08/15/24 I am a: Patient What is your living situation today?: I choose not to answer this question Within the past 12 months, did the food you bought not last and you didn't have the money to get more?: I choose not to answer this question Within the past 12 months, did you worry whether your food would run out before you got money to buy more?: I choose not to answer this question Do you have trouble paying for medicines?: I choose not to answer this question Do you have trouble getting transportation to medical appointments?: I choose not to answer this question Do you have trouble paying your heating and electricity bill?: I choose not to answer this question Do you have trouble taking care of your child, family member or friend?: I choose not to answer this question Do you have trouble with day-to-day activities such as bathing, preparing meals, shopping, managing finances, etc.?: I choose not to answer this question Are you currently unemployed and looking for a job?: I choose not to answer this question Are you interested in more education?: I choose not to answer this question THRIVE Score: 0 AUDIT C Alcohol Use Questionnaire (AUDIT-C) 1. How often do you have a drink containing alcohol?: Monthly or less 2. How many drinks containing alcohol do you have on a typical day when you are drinking?: 1 or 2 3. How often do you have six or more drinks on one occasion?: Never Total Score: 1 Score Reviewed/Action Taken: No KOLBY-7 AMB Questionnaire KOLBY-7 Date KOLBY - 7 assessed: 08/15/24 Feeling nervous, anxious, or on edge: 3 = Nearly every day Not being able to stop or control worryin = Nearly every day Worrying too much about different things: 3 = Nearly every day Trouble relaxin = More than half the days Being so restless that it is hard to sit still: 2 = More than half the days Becoming easily annoyed or irritable: 3 = Nearly every day Feeling afraid as if something awful might happen: 0 = Not at all Total KOLBY-7 score (0-4 normal; 5-9 mild; 10-14 moderate; 15-21 severe): 16 Source: Developed by Drs. Unruly Villagomez, Ingris Jalloh, John Chanel and colleagues, with an educational alina from [employer]. KOLBY-7 Assessment Billing KOLBY-7 Assessment Tool: KOLBY-7 Assessment 81101 Review of Systems Const Reports as per HPI ENT Reports no additional complaints Card Denies chest pain, Denies rapid heart rate and Denies lightheadedness Resp Reports no additional complaints GI Reports no additional complaints Neuro Reports no additional complaints Psych Reports as per HPI Physical exam (Primary Care) Tobacco/Smoking Status: Tobacco use Status Tobacco use date assessed 08/15/24 08/15/24 09:50 Patient Tobacco Use Status Current everyday Tobacco 08/14/24 13:40 e-Cigarette/Vaping Use Never Used 08/14/24 13:40 Depression Screening Interpretation: Positive (refuses therapy) Depression Screening Follow-up: Existing condition, New Medication prescribed and Other (Declines referral for counseling) Thrive Assessment: Date of Thrive Assessment Date Thrive assessed 08/30/23 08/14/24 13:40 Telehealth Telehealth Telehealth Platform: Melinta Location of provider rendering services: practice address Location of patient: address on file Patient Identification confirmed using: Name, : Yes Telehealth method: video Patient verbally consented to treatment: Yes Patient verbally consented to billing insurance company: Yes Patient informed of any privacy concerns related to visit: Yes Minutes spent on Phone/Video with Pt.: 15 Coding Level of Care Code Tele Est Pt Level 3 (89738) Diagnoses Anxiety and depression F41.9; F32.A Additional Codes PHQ-9 - 04112 - PHQ-9 Billing: Yes ([id number]) KOLBY-7 Assessment Billing - KOLBY-7 Assessment Tool: KOLBY-7 Assessment 90578 ([id number]) Assessment & Plan Assessment & Plan (1) Anxiety and depression: Code(s): F41.9 - Anxiety disorder, unspecified; F32.A - Depression, unspecified Category: Medical Plan: Will start her back on citalopram 20 mg per tablet taken once a day, advised to take it regularly, refusing referral for counseling, states that she does not need it and advised to keep follow-up appointment with PCP scheduled on 09/23/2024 Medications: New citalopram 20 mg PO DAILY 60 tabs 0RF F32.A - Depression, unspecified, F41.9 - Anxiety disorder, unspecified
--- OUTSIDE RECORDS SUMMARY | 2024-08-15 10:24 | XMS_ITS | Clinical Summary ---
Author Organization [facility] Address [id number] [place] [id number] Care Team Providers Care Hospital Personnel Director Name Role Phone Unavailable Primary Care Provider Unavailabl e Surgical History Surgery Date Site/Laterality Comments SECTION PROCEDURE: HISTORICAL DELIVERY; COMMENT: x 3 SECTION PROCEDURE: [place] DELIVERY ONLY EYE SURGERY 2000 PROCEDURE: HISTORICAL EYE SURGERY; COMMENT: 4 eye surgeries at [facility] TONSILLECTOMY ADENOIDECTOMY, BILATERAL MYRINGOTOMY AND TUBES 1998 PROCEDURE: [place] TONSILLECTOMY & ADENOIDECTOMY <AGE 14; COMMENT: [facility] Medical History Medical History Date Comments Fibromyalgia DX:Fibromyalgia Anxiety state DX:Anxiety state Trichomonas infection 05/18/2014 DX:Trichom onas infection History of vitamin D deficiency 05/18/2014 DX:History of vitamin D deficiency; COMMENT: Vitamin D = 11 Bacterial vaginosis 11/22/2015 DX:Bacterial vaginosis; COMMENT: 08/20/14, 06/04/15,05/18/14 Vaginal yeast infection 01/31/2016 DX:Vagin al yeast infection; COMMENT: 11/19/13 Arthritis DX:Arthritis Depression DX:Depression PTSD (post-traumatic stress disorder) DX:PTSD (post-traumatic stress disorder) History of chlamydia DX:History of chlamydia ASCUS of cervix with negativ e high risk HPV 12/25/2012 DX:ASCUS of cervix with nega tive high risk HPV Family History Medical History Relation Name Comments Throat cancer Maternal Grandfather Arthritis Maternal Grandmother Diabetes Maternal Grandmother Hypertension Maternal Grandmother Arthritis Paternal Grandmother Diabetes Paternal Grandmother Hypertension Paternal Grandmother Relation Name Status Comments Maternal Grandfather Maternal Grandmother Paternal Grandmother Social History Tobacco Use Types Packs/Day Years Used Date Smoking Tobacco: Never Smokeless Tobacco: Never Alcohol Use Standard Drinks/Week Comments No 0 (1 standard drink = 0.6 oz pur e alcohol) Comments Unknown Sex and Gender Information Value Date Recorded Sex Assigned at Not on file Legal Sex Female 11:13 PM EST Gender Identity Not on file Sexual Orientation Not on file Obstetrics History Plan of Treatment Health Maintenance Due Date Last Done Comments DTaP,Tdap,and Td Vaccines (1 - Tdap) 2006 Hepatitis B Vaccines (1 of 3 - 19+ 3-dose series) 2006 Cervical Cancer Screening: P ap Smear 2008 Depression Screening 06/04/2022 HIV Screening 06/04/2022 Hepatitis C Screening 06/04/2022 Social Influencers of Health Screening 06/04/2022 COVID-19 Vaccine ( - 2023-2 5 season) 2024 Influenza Vaccine (#1) 2024 HIB Vaccines Aged Out No longer eligi ble based on patient's age to complete this topic HPV Vaccines Aged Out No longer eligi ble based on patient's age to complete this topic Hepatitis A Vaccines Aged Out No long er eligible based on patient's age to complete this topic IPV Vaccines Aged Out No longer eligi ble based on patient's age to complete this topic MMR Vaccines Aged Out No longer eligi ble based on patient's age to complete this topic Meningococcal ACWY Vaccine Aged Out N o longer eligible based on patient's age to complete this topic Meningococcal B Vacine Aged Out No lo nger eligible based on patient's age to complete this topic Pneumococcal Vaccine: Pediat rics (0 to 5 Years) and At-Risk Patients (6 to 64 Years) Aged Out No longer eligible b ased on patient's age to complete this topic RSV Immunization Patients Un bhakti 20 months Aged Out No longer eligible b ased on patient's age to complete this topic Varicella Vaccines Aged Out No longer eligible based on patient's age to complete this topic
== END 2024-08-15 10:36 | disposition home or self-care (01) ==
LOC: HO.HMCC 09:53
PROVIDERS: PCP Nurse Practitioner Family; Visit Provider Internal Medicine
DX: F41.9 Anxiety disorder, unspecified (principal); F32.A Depression, unspecified

== ENCOUNTER → 2024-08-15 09:53 | Outpatient (BNVA) | payer OTHER, SELFPAY | PROVIDERS: PCP Nurse Practitioner Family; Visit Provider Internal Medicine | DX: F41.9 Anxiety disorder, unspecified (principal); F32.A Depression, unspecified | CPT/HCPCS: 96127 ==

== ENCOUNTER 2024-09-23 07:45 | Outpatient (AMB) | payer OTHER, SELFPAY ==
--- OUTSIDE RECORDS SUMMARY | 2024-09-23 07:51 | XMS_ITS | Clinical Summary ---
Author Organization [facility] Address [address] [place] [address] Phone Care Team Providers Care Caramel Candy Maker Helper Name Role Phone CarlosOrlando alcantar Antolin SALDIVAR Primary Care Provider Allergies No known active allergies Medications cyclobenzaprine (FLEXERIL) 10 mg tablet Take 1 tablet (10 mg total) by mouth 2 (two) times a day if needed. Active citalopram (CeleXA) 20 mg tablet Take 1 tablet (20 mg total) by mouth 1 (one) time each day. Active gabapentin (NEURONTIN) 100 mg capsule Take 1 capsule (100 mg total) by mouth 2 (two) times a day. Active Surgical History Surgery Date Site/Laterality Comments SECTION PROCEDURE: HISTORICAL DELIVERY; COMMENT: x 3 SECTION PROCEDURE: [place] DELIVERY ONLY EYE SURGERY 2000 PROCEDURE: HISTORICAL EYE SURGERY; COMMENT: 4 eye surgeries at [facility] TONSILLECTOMY ADENOIDECTOMY, BILATERAL MYRINGOTOMY AND TUBES 1998 PROCEDURE: [place] TONSIL[place]OMY [place] ADENOIDECTOMY <AGE 14; COMMENT: [facility] Medical History Medical History Date Comments Fibromyalgia [...] on file Obstetrics History Plan of Treatment Upcoming Encounters Date Type Department Care Team ([facility] st Contact Info) Description 10/22/2024 3:45 PM EDT Consult Orthopedic Surgery - [place] [address] [id number] Erich Garza, DPM [address] [address] Health Maintenance Due Date Last Done Comments DTaP,Tdap,and Td Vaccines (1 - Tdap) 2006 Hepatitis B Vaccines (1 of 3 - 19+ 3-dose series) 2006 Cervical Cancer Screening: P ap Smear 01/30/2019 01/31/2016 Depression Screening 06/04/2022 HIV Screening 06/04/2022 Hepatitis [...] to 64 Years) Aged Out No longer eligi ble based on patient's age to complete this topic RSV Immunization Patients Un bhakti 20 months Aged Out No longer eligible b ased on patient's age to complete this topic Varicella Vaccines Aged Out No longer eligible based on patient's age to complete this topic Procedures Procedure Name Priority Date/Time Associated Diagnosis Comments PAP SMEAR Routine 01/31/2016 from Last 3 Months or Most Recently Relevant to Health Maintenance Results * Pap Smear (01/31/2016) Pap smear Abstracted, No Interpretation us Historical Provider HEALTH MAINTENANCE Final Result from Last 3 Months or Most Recently Relevant to Health Maintenance Insurance Care Teams Caramel Candy Maker Helper Relationship Specialty Start Date End Date Orlando Lara NP [address], [place] PCP - General Family Medicine 08/20/24
--- NOTE | 2024-09-23 07:55 | MHC.PC.OV ---
Vital Signs 09/23/24 07:58 Height 5 ft Weight 164 lb BMI 32.0 BP 108/72 Blood Pressure Location Lt brachial Position Sitting Respiration 16 Pulse 83 Pulse Source Pulse Oximeter Temp 97.9 F Temp Source Oral Pulse Oximetry (%) 100 Oxygen Delivery Method Room Air Intake Visit Reasons: PE Intake Note: Pt is here today for her PE Allergies No Known Allergies [No Known Allergies*] Allergy (Unknown, Verified 08/15/24 10:11) N.K.Jay JayA. Allergy (Unknown, Uncoded 08/15/24 10:11) unknown Medication List - Last Reconciled 09/23/24 by Orlando Lara, ROADWAY TECHNICIAN- citalopram 20 mg PO DAILY cyclobenzaprine 10 mg PO BID 30 days meloxicam 7.5 mg PO DAILY 30 days Tobacco use date assessed: 09/23/24 Dental Screening Dental Screen Date: 09/23/24 Did you have a dental visit in the last 12 months?: No Did you have a dental problem in the last 6 months where you did not have access to dental care?: No Was dental information given to patient?: Patient has dentist HPI PE HPI Details History of Present Illness The patient is a 39-year-old female presenting for a wellness visit. Her history indicates she is managing anxiety effectively with citalopram, and she denies any suicidal or homicidal ideation. She is not currently in therapy and does not have interest in pursuing it. There are no elaborative details regarding the onset or history of anxiety provided during the visit. Pt also reports left dorsal foot pain, more distal region, just proximal to left 5th and 6th toe. Health Maintenance - She has routine gynecological care for Pap smears with her REELING AND TUBING MACHINE OPERATOR provider. 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 Review of Systems - Constitutional: Denies fevers or chills. - Gastrointestinal: Denies blood in stool, constipation, diarrhea. - Ophthalmologic: Denies blurred vision. denies any urinary issues - Psychological: Denies suicidal ideation, homicidal ideation. Physical Exam General: Cooperative, healthy appearing, comfortable, no acute distress and well developed Orientation: Patient oriented x3 Limitations: No limitations Head: Normal to inspection Ears: Hearing grossly normal bilaterally Nose: Normal external nose present Face and sinus: Normal facial exam Eyes: Appearance normal, both eyes and all related structures Neck: Normal visual inspection and Yes full ROM Respiratory: Normal respiratory effort and able to speak in complete sentences. Clear to auscultation bilaterally Cardiovascular: Regular rate and rhythm. Normal S1 and S2 GI: Normal to inspection. Soft to palpation and nontender Skin: No rashes or lesions noted Neuro: Patient oriented x3 Extremities: No edema noted, normal to inspection Results Plan labs, XR of left foot Discussion Notes In discussing management plans with the patient, I emphasized maintaining her current regimen with citalopram due to successful symptom management. She expressed no interest in therapy despite conversation around its potential benefits. I confirmed her ongoing gynecological care coordination with her REELING AND TUBING MACHINE OPERATOR provider for regular Pap smears. I provided reassurance based on her current mental health status and positive management outcomes. Regular follow-up for comprehensive health maintenance and assurance of wellbeing was highlighted and agreed upon. Patient Instructions - Continue taking citalopram as prescribed. - Follow up with REELING AND TUBING MACHINE OPERATOR provider for regular Pap smears. - Monitor for any new or worsening symptoms and report as needed. - Maintain regular wellness evaluations. [facility] Medical History Hyperemesis gravidarum (10/28/19) Fibromyalgia Chronic bipolar disorder History of ectopic History of chlamydia infection Bilateral knee pain FH: multiple miscarriages or stillbirths Surgical History Hx of tubal ligation Hx of section Family History Mother Mental health disorder Father Substance use disorder Mental health disorder Sister Substance use disorder Mental health disorder Maternal Aunt Mental health disorder Social History Housing: Condominium Patient Tobacco Use Status: Current everyday Tobacco user Cigarettes Per Day: 2 e-Cigarette/Vaping Use: Never Used Second Hand Smoke Exposure: No Current occupational status: employed Current occupation: [employer] Current occupational exposures/hazards: No Cognitive needs: No Hearing needs: No Vision needs: Yes Questionnaire PHQ-9 Over the last 2 weeks, how often have you been bothered by any of the following problems? 1. Little interest or pleasure in doing things: several days 2. Feeling down, depressed, or hopeless: not at all 3. Trouble falling or staying asleep, or sleeping too much: several days 4. Feeling tired or having little energy: several days 5. Poor appetite or overeating: several days 6. Feeling bad about yourself - or that you are a failure or have let yourself or your family down: not at all 7. Trouble concentrating on things, such as reading the newspaper or watching television: several days 8. Moving or speaking so slowly that other people could have noticed. Or the opposite - being so fidgety or restless that you have been moving around a lot more than usual: not at all 9. Thoughts that you would be better off or of hurting yourself in some way: not at all Total score: 5 Depression Screening Interpretation: Negative Depression Screening Done: Yes 51090 - PHQ-9 Billing: Yes Source: Developed by Drs. Unruly Villagomez, Ingris Jalloh, John Chanel and colleagues, with an educational alina from [employer]. Thrive Questionnaire Date Thrive assessed: 09/23/24 I am a: Patient What is your living situation today?: I have a steady place to live Within the past 12 months, did the food you bought not last and you didn't have the money to get more?: Sometimes True Within the past 12 months, did you worry whether your food would run out before you got money to buy more?: Never true Do you have trouble paying for medicines?: No Do you have trouble getting transportation to medical appointments?: No Do you have trouble paying your heating and electricity bill?: No Do you have trouble taking care of your child, family member or friend?: No Do you have trouble with day-to-day activities such as bathing, preparing meals, shopping, managing finances, etc.?: No Are you currently unemployed and looking for a job?: No Are you interested in more education?: No Please select the resources that you would like help with: None Currently or been in a relationship where the following occur: I choose not to answer THRIVE Score: 1 AUDIT C Alcohol Use Questionnaire (AUDIT-C) 1. How often do you have a drink containing alcohol?: Never Total Score: 0 KOLBY-7 AMB Questionnaire KOLBY-7 Date KOLBY - 7 assessed: 09/23/24 Feeling nervous, anxious, or on edge: 0 = Not at all Not being able to stop or control worryin = Not at all Worrying too much about different things: 0 = Not at all Trouble relaxin = Not at all Being so restless that it is hard to sit still: 0 = Not at all Becoming easily annoyed or irritable: 0 = Not at all Feeling afraid as if something awful might happen: 0 = Not at all Total KOLBY-7 score (0-4 normal; 5-9 mild; 10-14 moderate; 15-21 severe): 0 Source: Developed by Drs. Unruly Villagomez, Ingris Jalloh, John Chanel and colleagues, with an educational alina from [employer]. KOLBY-7 Assessment Billing KOLBY-7 Assessment Tool: KOLBY-7 Assessment 33181 Physical exam (Primary Care) Vital Signs: Last Vital Signs Temp 97.9 F 09/23/24 07:58 Pulse 83 09/23/24 07:58 Resp 16 09/23/24 07:58 BP 108/72 09/23/24 07:58 Pulse Ox 100 09/23/24 07:58 Oxygen Delivery Method Room Air 09/23/24 07:58 BMI result Body Mass Index 32.0 Tobacco/Smoking Status: Tobacco use Status Tobacco use date assessed 09/23/24 09/23/24 08:01 Patient Tobacco Use Status Current everyday Tobacco 09/23/24 07:56 e-Cigarette/Vaping Use Never Used 09/23/24 07:56 PHQ-9: PHQ-9 Score PHQ-9: Total score 5 09/23/24 07:56 Depression Screening Interpretation: Negative Thrive Assessment: Date of Thrive Assessment Date Thrive assessed 09/23/24 09/23/24 08:01 Currently or been in a relationship where the following occur: I choose not to answer Coding Level of Care Code Est Pt Prev Care 18-39y(66931) Diagnoses Physical exam Z00.00 Encounter for routine adult physical exam with abnormal findings Z00.01 Additional Codes PHQ-9 - 83978 - PHQ-9 Billing: Yes ([id number]) KOLBY-7 Assessment Billing - KOLBY-7 Assessment Tool: KOLBY-7 Assessment 90561 ([id number]) Assessment & Plan Assessment & Plan (1) Physical exam: Code(s): Z00.00 - Encounter for general adult medical examination without abnormal findings Category: Medical (2) Encounter for routine adult physical exam with abnormal findings: Code(s): Z00.01 - Encounter for general adult medical examination with abnormal findings Category: Medical Plan . Orders: Orders Comprehensive [place]. Panel Fast Today Z00.00 - Encounter for general adult medical examination without abnormal findings TSH reflex Free T4 Today Z00.00 - Encounter for general adult medical examination without abnormal findings UA CC w/rflx Micro + Cult Today Z00.00 - Encounter for general adult medical examination without abnormal findings XR foot LT 2V Today Z00.01 - Encounter for general adult medical examination with abnormal findings Complete Blood Count Auto Diff Today Z00.00 - Encounter for general adult medical examination without abnormal findings Lipid Panel Today Z00.00 - Encounter for general adult medical examination without abnormal findings
[2024-09-23 07:58] VITALS: BP 108/72; PULSE 83; RESP 16; TEMP 36.6; O2SAT 100; BMI 32.0
== END 2024-09-23 09:28 | disposition home or self-care (01) ==
LOC: HO.HMCC 07:46
PROVIDERS: PCP Nurse Practitioner Family; Visit Provider Nurse Practitioner Family
DX: Z00.00 Encounter for general adult medical examination without abnormal findings (principal); Z00.01 Encounter for general adult medical examination with abnormal findings

== ENCOUNTER → 2024-09-23 07:45 | Outpatient (BNVA) | payer OTHER, SELFPAY | PROVIDERS: PCP Nurse Practitioner Family; Visit Provider Nurse Practitioner Family | DX: Z00.00 Encounter for general adult medical examination without abnormal findings (principal); F17.200 Nicotine dependence, unspecified, uncomplicated; Z71.6 Tobacco abuse counseling | CPT/HCPCS: 96127; 99395 ==

== ENCOUNTER 2025-06-05 14:34 | Emergency (ER) | payer OTHER, SELFPAY ==
[2025-06-05 14:41] VITALS: BP 126/87; PULSE 109; RESP 18; TEMP 36.2; O2SAT 99; BMI 29.0
--- NOTE | 2025-06-05 14:41 | ED.GENADULT ---
HPI - General Adult General Chief complaint: Urogenital-Female Stated complaint: urethra pain Time Seen by Provider: 06/05/25 20:39 Source: patient Mode of arrival: ambulatory Limitations: no limitations History of Present Illness ED Provider: Dr. Conley [facility] narrative: This is a 40-year-old female presented hospital today for sudden onset of urethral pain dysuria. Patient stated that this occurred all of a sudden. Denies any fever. He is also complaining of some left-sided flank pain. Related Data Previous Rx's ?Medication ?Instructions ?Recorded citalopram 20 mg tablet 20 mg PO DAILY #60 tabs 02/23/25 cyclobenzaprine 10 mg tablet 10 mg PO BID 30 days #60 tabs 03/09/25 meloxicam 7.5 mg tablet 7.5 mg PO DAILY 30 days #30 tabs 03/09/25 fluconazole 150 mg tablet 150 mg PO Q3D 2 doses #2 tabs 05/04/25 metronidazole 0.75 % (37.5 mg/5 1 appful vaginal DAILY 5 days #70 05/04/25 gram) vaginal gel (Vandazole) grams cefpodoxime 200 mg tablet 200 mg PO Q12H 7 days #14 tabs 06/05/25 phenazopyridine 200 mg tablet 200 mg PO TID PRN pain #14 tabs 06/05/25 (Pyridium) Allergies Allergy/AdvReac Type Severity Reaction Status Date / Time No Known Allergies (No Known Allergy Unknown Verified 06/05/25 14:44 Allergies*) N.K.D.A. Allergy Unknown unknown Uncoded 06/05/25 14:44 Review of Systems Review of Systems: Pertinent review of systems as mentioned in [facility]. All other system otherwise negative. [facility] Past Medical History [facility] Narrative: Medical history as mentioned in [facility] Medical History Hyperemesis gravidarum (10/28/19) Fibromyalgia Chronic bipolar disorder History of ectopic History of chlamydia infection Bilateral knee pain FH: multiple miscarriages or stillbirths Surgical History Hx of tubal ligation Hx of section Family History Family History Mother Mental health disorder Father Substance use disorder Mental health disorder Sister Substance use disorder Mental health disorder Maternal Aunt Mental health disorder Social History Social History Housing: Condominium Patient Tobacco Use Status: Current everyday Tobacco user Cigarettes Per Day: 2 e-Cigarette/Vaping Use: Never Used Second Hand Smoke Exposure: No Current occupational status: employed Current occupation: [employer] Current occupational exposures/hazards: No Cognitive needs: No Hearing needs: No Vision needs: Yes Physical Exam ED Exam Exam: General: Pleasant, no distress, interacting appropriately Head: Normacephalic, atraumatic ENT: oral mucosa moist, neck supple, no tracheal deviation Gastrointestinal: Soft, non distended, lower abdominal tenderness on palpation no CVA tenderness on palpation Neurological: Awake and alert, no facial droop noted Skin: Warm and dry Psychiatric: Appropriate mood and thoughts Vital Signs: Vital Signs - 24 hr 06/05/25 14:41 06/05/25 20:18 Temperature 97.1 F 97.7 F Pulse Rate 109 H 79 Respiratory Rate 18 18 Blood Pressure 126/87 129/56 L Pulse Oximetry 99 100 Oxygen Delivery Method Room Air Room Air BMI result Body Mass Index 29.0 Course Course Course Narrative: Rapid medical examination performed in triage by Brooklynn Pierre PA-C: Patient is a 40 year old assigned female at presenting to the emergency department with flank pain and clitoris pain. Patient states that her clitoris started hurting very badly while driving and she is having flank pain. Detailed physical exam and review of systems are deferred to the velvet weaver. Labs ordered. Patient placed back in the waiting room pending room availability and results. Medications Administered Discontinued Medications Generic Name Dose Route Start Last Admin Trade Name Freq PRN Reason Stop Dose Admin Cephalexin HCl 500 mg 06/05/25 20:55 06/05/25 21:07 Cephalexin 500 Mg Capsule PO 06/05/25 20:56 500 mg ONCE ONE Administration Lidocaine HCl 10 ml 06/05/25 20:57 06/05/25 21:08 Lidocaine Hcl 2 % Urojet 10 Ml Jel.Pf.Jayden TOPICAL 06/05/25 20:58 10 ml ONCE ONE Administration Naproxen 250 mg 06/05/25 20:55 06/05/25 21:07 Naproxen 250 Mg Tablet PO 06/05/25 20:56 250 mg ONCE ONE Administration Phenazopyridine HCl 200 mg 06/05/25 20:55 06/05/25 21:07 Phenazopyridine Hcl 200 Mg Tablet PO 06/05/25 20:56 200 mg ONCE ONE Administration Medical Decision Making Medical Decision Making [facility] Narrative: 40-year-old female presented hospital today for sudden onset of urethral pain. Suspect patient has a UTI based on her UA and history and presentation. Patient's urine does look dark and cloudy. Patient stated it is foul-smelling in nature. Patient's lab work did not show any signs of leukocytosis no elevation in creatinine as well. I did perform bedside ultrasound. Did not see any hydronephrosis on the left kidney. Plan to give patient a dose of naproxen, Pyridium, Keflex here. We will plan to discharge plan with cefpodoxime to take. We will also discharge her with a some Pyridium to take at home. Encouraged her to take NSAIDs for pain control. The patient is a some Flexeril at home as well for muscle relaxant. The patient is agreeable to this plan all questions addressed patient will be discharged. Differential Diagnosis Differential Diagnoses: The differential diagnosis associated with the presentation includes UTI, pyelonephritis, infected kidney stone, kidney stone Lab Data [facility] Lab Attestation statement: I reviewed the patient's lab results. 06/05/25 16:03 06/05/25 16:03 Labs: Lab Results 06/05/25 06/05/25 Range/Units 16:03 20:15 WBC 9.1 (4.8-10.8) X10*3/uL RBC 4.91 (4.20-5.50) X10*6/uL Hgb 14.4 (12.0-16.0) g/dl Hct 42.5 (37.0-47.0) % MCV 86.6 (80.0-98.0) fL MCH 29.3 (27.0-33.0) pg MCHC 33.9 (31.0-35.0) g/dl RDW 11.9 (11.0-16.0) % Plt Count 314 (160-400) X10*3/uL MPV 10.0 (9.4-12.3) fL Immature Gran % (Auto) 0.4 (0.0-0.4) % Neut % (Auto) 67.8 (45-73) % Lymph % (Auto) 23.9 (20-40) % Jessamine % (Auto) 6.1 (2-11) % Eos % (Auto) 1.4 (0-4) % Baso % (Auto) 0.4 (0-2) % Lymph # (Auto) 2.2 (1.2-4.9) X10*3/uL Jessamine # (Auto) 0.6 (0.1-1.2) X10*3/uL Eos # (Auto) 0.1 (0.0-0.4) X10*3/uL Baso # (Auto) 0.0 (0.0-0.2) X10*3/uL Abs Immat Gran (auto) 0.04 H (0.00-0.03) X10*3/uL Absolute Neuts (auto) 6.2 (2.0-8.3) x10*3/uL Absolute Nucleated RBC 0.000 (0.0-0.012) X10*3/uL Nucleated RBC % (auto) 0.0 (0.0-0.2) /100WBC Sodium 137 (135-145) mmol/L Potassium 4.0 (3.3-5.1) mmol/L Chloride 106 (96-108) mmol/L Carbon Dioxide 25 (22-29) mmol/L Anion Gap 10 L (12-20) BUN 11 (9-16) mg/dL Creatinine 0.76 (0.5-1.4) mg/dL Estim Creat Clear Calc 108.0 Estimated GFR > 60 Random Glucose 115 (60-115) mg/dL Calcium 9.3 (8.4-10.2) mg/dL Magnesium 1.9 (1.6-2.6) mg/dL Total Bilirubin 0.2 (0.0-1.0) mg/dL AST 19 (5-31) U/L ALT 13 (0-31) U/L Alkaline Phosphatase 91 (39-117) U/L Total Protein 7.6 (6.5-8.0) g/dL Albumin 4.2 (3.5-5.0) g/dL Beta HCG, Quant < 2 mIU/mL Urine Color Dark Yellow Urine Appearance Turbid Urine pH 8.0 (5.0-9.0) Ur Specific Hardwick 1.025 (1.005-1.025) Urine Protein 30 (1+) H (Neg-Trace) mg/dL Urine Glucose (UA) Negative (Negative) mg/dL Urine Ketones Trace (Negative) mg/dL Urine Blood Large (3+) H (Negative) Urine Nitrite Negative (Negative) Ur Leukocyte Esterase Trace H (Negative) Urine RBC >20 H (0-2) /HPF Urine WBC 6-10 H (0-5) /HPF Ur Squamous Epith Cells 11-20 (0-2) /HPF Urine Bacteria 2+ (None Seen) Hyaline Casts 0-2 (0-2) /LPF Discharge Plan Discharge Clinical Impression: UTI (urinary tract infection) Qualifiers: Urinary tract infection type: site unspecified Hematuria presence: with hematuria Qualified Code(s): N39.0 - Urinary tract infection, site not specified Patient Disposition: Home, Self-Care Instructions: Urinary Tract Infection in Women (ED) Additional Instructions: Follow up with your primary care doctor. Based on your presentation and urinalysis It looks like you have a UTI. Prescriptions: New cefpodoxime 200 mg tablet 200 mg PO Q12H 7 Days Qty: 14 0RF Rx Instructions: must administer with a meal/food phenazopyridine [Pyridium] 200 mg tablet 200 mg PO TID PRN (Reason: pain) Qty: 14 0RF No Action citalopram 20 mg tablet 20 mg PO DAILY Qty: 60 8RF meloxicam 7.5 mg tablet 7.5 mg PO DAILY 30 Days Qty: 30 2RF Rx Instructions: do not take concurrently with ibuprofen cyclobenzaprine 10 mg tablet 10 mg PO BID 30 Days Qty: 60 0RF fluconazole 150 mg tablet 150 mg PO Q3D Qty: 2 0RF metronidazole [Vandazole] 0.75 % (37.5mg/5 gram) gel 1 appful vaginal DAILY 5 Days Qty: 70 0RF Print Language: Finnish
[2025-06-05 16:07] LABS: MANUAL DIFF FLAG NO
[2025-06-05 16:09] LABS: Hematocrit 42.5 % (37.0-47.0); Hemoglobin 14.4 g/dl (12.0-16.0); Imm Gran Abs Auto 0.04 X10*3/uL (0.00-0.03); Imm Gran Pct Auto 0.4 % (0.0-0.4); Lymphocytes Absolute Auto 2.2 X10*3/uL (1.2-4.9); Mean Corpuscular HGB Conc 33.9 g/dl (31.0-35.0); Mean Corpuscular Hemoglobin 29.3 pg (27.0-33.0); Mean Corpuscular Volume 86.6 fL (80.0-98.0); NRBC Abs Auto 0.000 X10*3/uL (0.0-0.012); NRBC Pct Auto 0.0 /100WBC (0.0-0.2); Platelet Count 314 X10*3/uL (160-400); Red Blood Count 4.91 X10*6/uL (4.20-5.50); White Blood Count 9.1 X10*3/uL (4.8-10.8)
[2025-06-05 16:38] LABS: Alanine Aminotransferase 13 U/L (0-31); Albumin Level 4.2 g/dL (3.5-5.0); Alkaline Phosphatase 91 U/L (39-117); Anion Gap 10 (12-20); Aspartate Amino Transferase 19 U/L (5-31); Blood Urea Nitrogen 11 mg/dL (9-16); Calcium 9.3 mg/dL (8.4-10.2); Carbon Dioxide 25 mmol/L (22-29); Chloride 106 mmol/L (96-108); Creatinine Clr Calc Pharmacy 108.0; Estimated Glomerular Filt Rate > 60; Magnesium 1.9 mg/dL (1.6-2.6); Potassium 4.0 mmol/L (3.3-5.1); Sodium 137 mmol/L (135-145); Total Protein 7.6 g/dL (6.5-8.0)
[2025-06-05 20:18] VITALS: BP 129/56; PULSE 79; RESP 18; TEMP 36.5; O2SAT 100
[2025-06-05 20:28] LABS: Appearance Urine Turbid; Glucose Urine UA Negative (Negative); PH 8.0 (5.0-9.0); Specific Gravity - Urine 1.025 (1.005-1.025); UMIC TRIGGER UACC YES
--- OUTSIDE RECORDS SUMMARY | 2025-06-05 20:32 | XMS_ITS | Clinical Summary ---
Author Organization [address] [facility] Address [address] [place] [address] Phone Care Team Providers Care Fur Puller Name Role Phone CarlosOrlando alcantar Antolin SALDIVAR [...] HISTORICAL DELIVERY; COMMENT: x 3 SECTION PROCEDURE: [place] DELIVERY ONLY EYE SURGERY 2000 PROCEDURE: HISTORICAL EYE SURGERY; COMMENT: 4 eye surgeries at [facility] TONSILLECTOMY ADENOIDECTOMY, BILATERAL MYRINGOTOMY AND TUBES 1998 PROCEDURE: [place] TONSILLECTOMY & ADENOIDECTOMY <AGE 12; COMMENT: [facility] Medical History Medical History Date Comments [...] of 3 - 19+ 3-dose series) 2006 HPV Vaccines (1 - 3-dose SCD M series) 2014 Cervical Cancer Screening: P ap Smear 01/30/2019 01/31/2016 HIV Screening 06/04/2022 Hepatitis C Screening 06/04/2022 Social Influencers of Health Screening 06/04/2022 Depression Screening 07/02/2024 COVID-19 Vaccine (1 - 2024-2 6 season) 2025 Influenza Vaccine (#1) 2025 RSV Immunization Adult Patie nts (1 - 1-dose 75+ series) 2062 HIB Vaccines Aged Out No longer eligi [...] age to complete this topic Meningococcal B Vaccine Aged Out No l onger eligible based on patient's age to complete this topic Pneumococcal Vaccine: Pediat rics (0 to 5 Years) and At-Risk Patients (6 to 49 Years) Aged Out No longer eligi ble [...] Recently Relevant to Health Maintenance Results * Hm Pap Smear (01/31/2016) HM Pap smear Abstracted, No Interpretation us Historical Provider MD HEALTH MAINTENANCE Final Result from Last 3 Months or Most Recently Relevant to Health Maintenance [place] [address] [address] [employer] PLAN Care Teams Fur Puller Relationship Specialty Start Date End Date Orlando Lara NP [address] [place], [place] PCP - General Family Medicine 08/20/24
[2025-06-05 20:33] LABS: UACC Culture Trigger YES
[2025-06-05] MEDS: Lidocaine HCl 2 % Urojet 10 ML JEL.PF.APP TOPICAL (21:08)
[2025-06-05 21:22] VITALS: BP 129/56; PULSE 79; RESP 18; TEMP 36.5; O2SAT 100
== END 2025-06-05 21:23 | disposition home or self-care (01) ==
PROVIDERS: Physician Assistant Medical; Emergency Provider Student in an Organized Health Care Education/Training Program; PCP Nurse Practitioner Family
DX: N39.0 Urinary tract infection, site not specified (principal); R30.0 Dysuria; R10.23 Pelvic and perineal pain bilateral; F17.210 Nicotine dependence, cigarettes, uncomplicated; Z79.899 Other long term (current) drug therapy
CPT/HCPCS: 36415; 80053; 81001; 83735; 84702; 85025; 87086; 99284

== ENCOUNTER 2025-06-16 06:43 | Outpatient (AMB) | payer OTHER, SELFPAY ==
--- OUTSIDE RECORDS SUMMARY | 2025-06-16 06:48 | XMS_ITS | Clinical Summary ---
Author Organization [facility] Address [address] [place] [id number] Phone Care Team Providers Care Outreach Nurse Name Role Phone Orlando Lara NP Primary Care Provider + Allergies No known active allergies Medications ibuprofen (ADVIL,MOTRIN) 800 MG tablet Take 800 mg by mouth 3 (three) times a day as needed. 02/22/2023 Active cyclobenzaprine (FLEXERIL) 10 MG tablet Take 10 mg by mouth 2 (two) times a day as needed for muscle spasms. 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 Not on [place] e 03/02/2023 Are you concerned about learning? Not on file 03/02/2023 No 03/02/2023 No 03/02/2023 Digital Access Answer Date Recorded No 03/02/2023 No 03/02/2023 Reliable internet access at home? Not on file 03/02/2023 Device with a working camera? Not on file Comments Unknown Sex and Gender Information Value Date Recorded Sex Assigned at Not on file Legal Sex Female 3:02 PM EDT Gender Identity Female 03/06/2023 2:50 PM EDT Sexual Orientation Straight 03/06/2023 2: 50 PM EDT Last Filed Vital Signs Vital Sign Reading Time Taken Comments Blood Pressure - - Pulse - - Temperature - - Respiratory Rate - - Oxygen Saturation - - Inhaled Oxygen Concentration - - Weight 80.7 kg (178 lb) 03/13/2023 10:19 AM EDT Height 154.4 cm (5' 0.8 ) 03/13/2023 10:19 AM ED T Body Mass Index 33.85 03/13/2023 10:19 AM EDT Plan of Treatment Health Maintenance Due Date Last Done Comments Adult Td,Tdap Booster 1987 DEPRESSION SCREENING 1999 SMOKING Hx and SMOKELESS TOB ACCO SCREENING 2000 HEPATITIS C SCREENING 2005 HIV ONE-TIME SCREENING (18-6 5 YEARS) 2005 PNEUMOCOCCAL VACCINES (0-49 years) (1 of 2 - PCV) 2006 PAP SMEAR 2008 SCREENING FOR DIABETES 2022 INFLUENZA VACCINE (#1) 2025 COVID-19 VACCINE (1 - 2024-2 6 season) 2025 HEPATITIS A VACCINES Aged Out No long er eligible based on patient's age to complete this topic HIB VACCINES Aged Out No longer eligi ble based on patient's age to complete this topic MENINGOCOCCAL VACCINES (ACWY) Aged Out No longer eligible based on patient's age to complete this topic MENINGOCOCCAL VACCINES (B) Aged Out N o longer eligible based on patient's age to complete this topic Medical Devices Not on file Insurance [facility] [place] [place] [address] [place] [address] [place] [address] [place] [address] [place] [facility] ACO [facility] ACO Care Teams Outreach Nurse Relationship Specialty Start Date End Date Orlando Lara NP [address] [place] [address] PCP - General Nurse Practitioner 02/27/23 Additional Source Comments The information contained in this document represents components of the legal health record. It is not the complete legal health record.[facility]
--- OUTSIDE RECORDS SUMMARY | 2025-06-16 06:48 | XMS_ITS | Clinical Summary ---
Author Organization [address] [facility] Address [address] [place] [address] Phone Care Team Providers Care Building Economist Name Role Phone CarlosOrlando alcantar Antolin SALDIVAR [...] HISTORICAL DELIVERY; COMMENT: x 3 SECTION PROCEDURE: [place] DELIVERY ONLY EYE SURGERY 2000 PROCEDURE: HISTORICAL EYE SURGERY; COMMENT: 4 eye surgeries at [facility] TONSILLECTOMY ADENOIDECTOMY, BILATERAL MYRINGOTOMY AND TUBES 1998 PROCEDURE: [place] TONSILLECTOMY & ADENOIDECTOMY <AGE 12; COMMENT: [facility] Medical History Medical History Date Comments [...] on file Sexual Orientation Not on file Plan of Treatment Health Maintenance Due Date [...] Health Maintenance Results * Pap Smear (01/31/2016) HM Pap smear Abstracted, No Interpretation Historical Provider MD HEALTH MAINTENANCE Final Result from Last 3 Months or Most Recently Relevant to Health Maintenance Insurance [facility] [employer] [place] [address] Care Teams Building Economist Relationship Specialty Start Date End Date Orlando Lara NP [address] [place], [place] PCP - General Family Medicine 08/20/24
--- NOTE | 2025-06-16 08:00 | A.OFFPC_ITS ---
Intake Visit Reasons: F/U UTI Allergies No Known Allergies (No Known Allergies*) Allergy (Unknown, Verified 06/11/25 09:52) N.K.D.A. Allergy (Unknown, Uncoded 06/05/25 14:44) unknown Tobacco use date assessed: 09/23/24 Dental Screening Dental Screen Date: 09/23/24 HPI F/U UTI HPI Details History of Present Illness The patient is a 40-year-old female presenting for a telehealth follow-up after a hospital visit for a urinary tract infection and to address ongoing hair loss. The patient was seen in the emergency room on 06/05/2025 for a sudden onset of urethral pain and dysuria, along with some left-sided flank pain. She denied any fevers at the time. A urinary tract infection was suspected based on her u rinalysis, which showed dark, cloudy, and malodorous urine, although no leukocytosis was noted. A bedside ultrasound showed no hydronephrosis of the left kidney. She was given naproxen, Pyridium, and Keflex in the ER and was discharged with cefpodoxime, which she has now completed. She reports feeling 100% better. The patient also has ongoing hair loss at the bilateral temples and superior to her forehead along the hairline. She was referred to dermatology in the past but does not remember seeing them. Review of Systems - Genitourinary: Denies dysuria, hematur ia, and flank pain currently. - Constitutional: Denies fevers. - Gastrointestinal: Denies nausea and vo miting. - Integumentary: Reports hair loss. Plan 1. Urinary Tract Infection The patient was seen for follow-up of a UTI diagnosed in the ER. She has completed her course of cefpodoxime and reports her symptoms have fully resolved. No further treatment is needed at this time. 2. Hair Loss The patient has ongoing hair loss at the bilateral temples and hairline. A new referral to dermatology will be placed for evaluation. Discussion Notes I discussed the resolution of her urinary tract infection symptoms with her, and she reports feeling 100% better after completing the antibiotic course. We also discussed the ongoing hair loss. I informed her that I will place another referral to dermatology for this issue, as she does not recall her previous one. I will see her back in the office for a full physical exam in the near future. Patient Instructions - You have finished your antibiotic for the urinary tract infection and your symptoms have gone away. - We are placing a new referral to a [facility] n specialist (dermatology) for your hair loss. - Please schedule a follow-up appointmen t for a full physical exam soon. [facility] Medical History Hyperemesis gravidarum (10/28/19) Fibromyalgia Chronic bipolar disorder History of ectopic History of chlamydia infection Bilateral knee pain FH: multiple miscarriages or stillbirths Surgical History Hx of tubal ligation Hx of section Family History Mother Mental health disorder Father Substance use disorder Mental health disorder Sister Substance use disorder Mental health disorder Maternal Aunt Mental health disorder Social History Housing: Condominium Patient Tobacco Use Status: Current everyday Tobacco user Cigarettes Per Day: 2 e-Cigarette/Vaping Use: Never Used Second Hand Smoke Exposure: No Current occupational status: employed Current occupation: [employer] Current occupational exposures/hazards: No Cognitive needs: No Hearing needs: No Vision needs: Yes Questionnaire Thrive Questionnaire Date Thrive assessed: 09/23/24 I am a: Patient What is your living situation today?: I have a steady place to live Within the past 12 months, did the food you bought not last and you didn't have the money to get more?: Sometimes True Within the past 12 months, did you worry whether your food would run out before you got money to buy more?: Never true Do you have trouble paying for medicines?: No Do you have trouble getting transportation to medical appointments?: No Do you have trouble paying your heating and electricity bill?: No Do you have trouble taking care of your child, family member or friend?: No Do you have trouble with day-to-day activities such as bathing, preparing meals, shopping, managing finances, etc.?: No Are you currently unemployed and looking for a job?: No Are you interested in more education?: No Please select the resources that you would like help with: None Currently or been in a relationship where the following occur: I choose not to answer THRIVE Score: 1 KOLBY-7 AMB Questionnaire KOLBY-7 Date KOLBY - 7 assessed: 09/23/24 Source: Developed by Drs. Unruly Villagomez, Ingris Jalloh, John Chanel and colleagues, with an educational alina from [employer]. Physical exam (Primary Care) Tobacco/Smoking Status: Tobacco use Status Tobacco use date assessed 09/23/24 06/11/25 09:53 Patient Tobacco Use Status Current everyday Tobacco 06/11/25 09:53 e-Cigarette/Vaping Use Never Used 06/11/25 09:53 Thrive Assessment: Date of Thrive Assessment Date Thrive assessed 09/23/24 06/11/25 09:53 Currently or been in a relationship where the following occur: I choose not to answer Coding Level of Care Code Tele Est Pt Level 3 (40317) Diagnoses Alopecia L65.9 UTI (urinary tract infection) N39.0; R31.9 Hematuria presence: with hematuria Urinary tract infection type: site unspecified Assessment & Plan Assessment & Plan (1) Alopecia: Code(s): L65.9 - Nonscarring hair loss, unspecified Category: Medical (2) UTI (urinary tract infection): Code(s): N39.0 - Urinary tract infection, site not specified Category: Medical Qualifiers: Hematuria presence: with hematuria Urinary tract infection type: site unspecified Qualified Code(s): N39.0 - Urinary tract infection, site not specified; R31.9 - Hematuria, unspecified Plan . Orders: Referrals Dermatology Referral L65.9 - Nonscarring hair loss, unspecified
== END 2025-06-16 08:21 | disposition home or self-care (01) ==
LOC: HO.HMCC 06:45
PROVIDERS: PCP Nurse Practitioner Family; Visit Provider Nurse Practitioner Family
DX: L65.9 Nonscarring hair loss, unspecified (principal); N39.0 Urinary tract infection, site not specified; R31.9 Hematuria, unspecified